=== PATIENT | male | born 1960 | race Caucasian/White ===

== ENCOUNTER 2018-01-31 21:15 | Emergency (ER) | payer OTHER, MEDICAID ==
[~2018-01-31] VITALS: Ht 172.7 cm; Wt 81.6 kg
[~2018-01-31 21:15] MED LIST: ACET-2619 PO; BEN50 PO; BISA10SU1 RC; CLIN300C2 PO; CRAN400C PO; DOCU-299 PO; LORA-476 PO; MAGN400S60 PO; POLY17PD65 PO; QUET100T PO; QUET200T PO; TAMS0.4C96 PO; TYL3 PO; [UNRECOGNIZED DRUG - CODE] OP; [UNRECOGNIZED DRUG - CODE] PO; [UNRECOGNIZED DRUG - CODE] PO
[2018-01-31 21:20] VITALS: BP 130/75
[2018-01-31 23:20] VITALS: BP 120/69
== END 2018-01-31 23:20 | disposition home or self-care (01) ==
LOC: MED 21:15
DX: S00.83XA Contusion of other part of head, initial encounter (principal); I10 Essential (primary) hypertension; Z79.899 Other long term (current) drug therapy; W01.0XXA Fall on same level from slipping, tripping and stumbling without subsequent striking against object, initial encounter; Y93.89 Activity, other specified; Y99.8 Other external cause status; Y92.89 Other specified places as the place of occurrence of the external cause
CPT/HCPCS: 70450; 72125; 99284

== ENCOUNTER 2018-05-19 08:17 | Emergency (ER) | payer OTHER, MEDICAID ==
[~2018-05-19] VITALS: Ht 175.3 cm; Wt 88.0 kg
[2018-05-19 08:33] VITALS: BP 129/96
--- NOTE | 2018-05-19 08:42 | NUR ---
Patient to bed 4 at this time.
--- NOTE | 2018-05-19 08:45 | NUR ---
58Y/M BIB COMMISSARY HELPER FROM A RETIREMENT WITH C/O LACERATION ON TOP OF HIS LAST NIGHT FOUND HITTING HIS HEAD ON THE WALL LAST NIGHT; CAREGIVER DENIES LOC; BLEEDING CONTROLLED; 1 INCH LACERATION; BED DOWN; BEDRAIL UP X 1; ER MD AWARE AND NOTIFIED OF PT STATUS. HX; EPILEPSY, PSYCHOTIC BEHAVIOUR, BOWEL OBSTRUCTION RX; HALDOL, HODROCODONE, DIVALPROEX, BLYCOPYRROLATE
--- NOTE | 2018-05-19 10:00 | NUR ---
Patient being evaluated by physician at bedside.
[2018-05-19] MEDS ORDERED: BACITRACIN OINT 500 UNITS/GM PKT TP ONE (10:18)
[2018-05-19 10:20] VITALS: BP 127/93
--- NOTE | 2018-05-19 10:20 | NUR ---
Patient discharged with v/s stable. Written and verbal after care instructions given and explained. Patient alert, oriented and verbalized understanding of instructions. Wheel Chair Assisted with by caregiver. All questions addressed prior to discharge. ID band removed. Patient advised to follow up with PMD. Rx of bacitracin given. Patient educated on indication of medication including possible reaction and side effects. Opportunity to ask questions provided and answered.
== END 2018-05-19 10:20 | disposition home or self-care (01) ==
LOC: MED 08:17
DX: S01.01XA Laceration without foreign body of scalp, initial encounter (principal); I10 Essential (primary) hypertension; G40.909 Epilepsy, unspecified, not intractable, without status epilepticus; Z79.899 Other long term (current) drug therapy; W22.01XA Walked into wall, initial encounter; Y93.89 Activity, other specified; Y92.89 Other specified places as the place of occurrence of the external cause; Y99.8 Other external cause status
CPT/HCPCS: 99283

== ENCOUNTER 2019-09-05 22:23 | Emergency (ER) | payer OTHER, MEDICAID ==
[~2019-09-05] VITALS: Ht 170.2 cm; Wt 86.2 kg
[~2019-09-05 22:23] MED LIST changes: +ACET-503 PO; -TYL3 PO
--- NOTE | 2019-09-06 00:25 | NUR ---
59 YEAR OLD MALE BROUGHT IN BY DAIRY BAR MANAGER. DAIRY BAR MANAGER STATES THAT PATIENT'S NURSE INSERTED A STRAIGHT CATHETER INTO THE PATIENT BUT THE CLEANING SWAB BROKE OFF AND GOT STUCK INTO THE PATIENT'S PENIS. DAIRY BAR MANAGER DENIES BLEEDING FROM PENIS. PATIENT ALERT AND AWAKE, BREATHING EVEN AND UNLABORED, SKIN WARM AND DRY. BED IN LOWEST POSITION, LOCKED, BED RAIL UPX1. PMH - MODERATE MR, AGGRESSIVE, GLAUCOMA, UTI MEDS - NONE ALLERGIES - NKA
--- NOTE | 2019-09-06 00:32 | NUR ---
PT BROUGHT TO BED 6 VIA WHEELCAHIR WITH CAREGIVER
--- NOTE | 2019-09-06 00:55 | NUR ---
DISCHARGE BY DR GUTIÉRREZ. Patient discharged with v/s stable. Written and verbal after care instructions ABOUT FOREIGN BODY BRIEF given and explained TO CAREGIVER. CAREGIVER verbalized understanding. Ambulatory with steady gait. All questions addressed prior to discharge. Advised to follow up with PMD.
== END 2019-09-06 01:15 | disposition home or self-care (01) ==
LOC: MED 22:23
DX: T19.4XXA Foreign body in penis, initial encounter (principal); I10 Essential (primary) hypertension; Z79.899 Other long term (current) drug therapy; X58.XXXA Exposure to other specified factors, initial encounter; Y93.89 Activity, other specified; Y92.89 Other specified places as the place of occurrence of the external cause; Y99.8 Other external cause status
CPT/HCPCS: 99281

== ENCOUNTER 2021-02-07 08:19 | Emergency (ER) | payer OTHER, MEDICAID ==
[~2021-02-07] VITALS: Ht 180.3 cm; Wt 88.5 kg
--- NOTE | 2021-02-07 08:20 | NUR ---
PATIENT WHEELCHAIR ASSISTED TO ER BED 09
--- NOTE | 2021-02-07 08:25 | NUR ---
60 Y/O MALE BIB CAREGIVER C/O LACERATION TO L SIDE OF HEAD S/P MECHANICAL FALL X20 MINS AGO. PER CAREGIVER, PT FELL FORWARD AND HIT HIS HEAD ON A BED FRAME. DENIES LOC. CONTROLLED BLEEDING WITH GAUZE PLACED BY FACILITY. PT IS VERBAL BUT WITH HX, HARD TO UNDERSTAND. PT DOES NOT APPEAR TO BE IN ANY PAIN WITH NO SIGNS OF DISTRESS. CAREGIVER AT BEDSIDE. PT LAYING IN BED WITH BED IN LOWEST POSITION, BRAKES LOCKED, X2 SIDERAILS UP FOR SAFETY. PMH: MOD ID,HTN, EPILEPSY, GLAUCOMA, HEMOCHROMATOSIS, AGGRESIVE BEHAVIOR NKDA
[2021-02-07 08:26] VITALS: BP 156/64
--- NOTE | 2021-02-07 08:33 | NUR ---
DR PERKINS AT BEDSIDE EVALUATING PT
[2021-02-07] MEDS ORDERED: LIDOCAINE MPF 1% 10 MG/ML VIAL INJ ONE (08:40)
[2021-02-07] MEDS ORDERED: LORazepam 2 MG/ML VIAL IM ONE (08:40)
--- NOTE | 2021-02-07 09:05 | NUR ---
PT TAKEN TO CT VIA MIRANDA. CAREGIVER PRESENT
--- NOTE | 2021-02-07 09:15 | NUR ---
PT BACK FROM CT
--- NOTE | 2021-02-07 09:48 | NUR ---
IRRIGATED PT HEAD WITHOUT ANY ISSUES
[2021-02-07 09:55] VITALS: BP 156/64
--- NOTE | 2021-02-07 09:56 | NUR ---
Patient discharged with v/s stable. Written and verbal after care instructions given and explained. Patient verbalized understanding. Wheel Chair Assisted with by caregiver. All questions addressed prior to discharge. Advised to follow up with PMD.
== END 2021-02-07 09:56 | disposition home or self-care (01) ==
LOC: MED 08:19
DX: S01.01XA Laceration without foreign body of scalp, initial encounter (principal); I10 Essential (primary) hypertension; E07.9 Disorder of thyroid, unspecified; Z79.899 Other long term (current) drug therapy; W19.XXXA Unspecified fall, initial encounter; Y93.89 Activity, other specified; Y92.89 Other specified places as the place of occurrence of the external cause; Y99.8 Other external cause status
CPT/HCPCS: 12002; 70450; 96372; 99284; J2001; J2060

== ENCOUNTER 2021-02-17 09:25 | Emergency (ER) | payer OTHER, MEDICAID ==
[~2021-02-17] VITALS: Ht 180.3 cm; Wt 86.2 kg
[2021-02-17 09:32] VITALS: BP 141/113
[2021-02-17 10:12] VITALS: BP 141/113
== END 2021-02-17 10:12 | disposition home or self-care (01) ==
LOC: MED 09:25
DX: S01.01XD Laceration without foreign body of scalp, subsequent encounter (principal); I10 Essential (primary) hypertension; Z79.899 Other long term (current) drug therapy; X58.XXXD Exposure to other specified factors, subsequent encounter
CPT/HCPCS: 99281

== ENCOUNTER 2021-02-23 10:25 | Emergency (ER) | payer OTHER, MEDICAID ==
[~2021-02-23] VITALS: Ht 180.3 cm; Wt 85.3 kg
[2021-02-23 10:51] VITALS: BP 132/97
--- NOTE | 2021-02-23 11:10 | NUR ---
PT AMBULATED WITH ELECTRONIC INSTALLER ASSIST TO BED 4
--- NOTE | 2021-02-23 11:11 | NUR ---
PT BROUGHT IN BY CONTINUOUS MINING MACHINE COMPANY MINER WITH C/O LEFT 2ND TOE PAIN, PT NAIL IS FALLING OFF. CAREGIVER STATED THE PAIN STARTED TODAY. PT FLACC 10/10. FROWNING AND DIFFICULT TO CONTROL. A MILD SWELLING NOTED TO THE TOE. HX: MODERATE ID, AGGRESSIVE BEHAVIOR, HEMACHROMATOSIS, CHRONIC URINARY TRACT INFECTION, GLAUCOMA, HX BOWEL OBSTRUCTION, CHRONIC CONSTIPATION, HTN, HYPOTHYROID.
--- NOTE | 2021-02-23 11:26 | NUR ---
Dr. Edouard is evaluating the patient at bedside.
[2021-02-23] MEDS ORDERED: KETOROLAC 30 MG/ML VIAL IM ONE (11:30)
--- NOTE | 2021-02-23 11:43 | NUR ---
integrated pest management technician at bedside.
[2021-02-23] MEDS ORDERED: BACITRACIN OINT 500 UNITS/GM PKT TP ONE ×2 (12:08→12:10)
--- NOTE | 2021-02-23 12:18 | NUR ---
APPLIED DRESSING TO LEFT 2ND TOE
[2021-02-23] MEDS ORDERED: LIDOCAINE 2% 1000 MG/50 ML VIAL INJ ONE (12:25)
--- NOTE | 2021-02-23 12:34 | NUR ---
Dr. Edouard is reevaluating the patient at bedside.
[2021-02-23] MEDS ORDERED: BACI1PAC6 TP (12:59)
[2021-02-23] MEDS ORDERED: ACET-10509 PO (12:59)
--- NOTE | 2021-02-23 13:21 | NUR ---
Patient discharged with v/s stable. Written and verbal after care instructions given and explained. CAREGIVER STATED UNDERSTANDING. Wheel Chair Assisted with to car. All questions addressed prior to discharge. ID band removed. Patient advised to follow up with PMD. Rx of TYLENOL EXTRA STRENGHTH, BACITRACIN ZINC given. Patient educated on indication of medication including possible reaction and side effects. Opportunity to ask questions provided and answered.
== END 2021-02-23 13:21 | disposition home or self-care (01) ==
LOC: MED 10:25
DX: S93.105A Unspecified dislocation of left toe(s), initial encounter (principal); S91.205A Unspecified open wound of left lesser toe(s) with damage to nail, initial encounter; I10 Essential (primary) hypertension; E03.9 Hypothyroidism, unspecified; Z98.890 Other specified postprocedural states; Z79.899 Other long term (current) drug therapy; X58.XXXA Exposure to other specified factors, initial encounter; Y93.89 Activity, other specified; Y92.89 Other specified places as the place of occurrence of the external cause; Y99.8 Other external cause status
CPT/HCPCS: 28660; 73660; 96372; 99283; J1885; J2001; 99284

== ENCOUNTER 2021-04-09 07:00 | Emergency (ER) | payer OTHER, MEDICAID ==
[~2021-04-09] VITALS: Ht 182.9 cm; Wt 90.7 kg
[~2021-04-09 07:00] MED LIST changes: +ACET-10509 PO; +BACI1PAC6 TP
--- NOTE | 2021-04-09 07:10 | NUR ---
PT TISH DOLANS. TAKEN TO BED 4
[2021-04-09 07:13] VITALS: BP 135/86
--- NOTE | 2021-04-09 07:30 | NUR ---
TISH FROM ASSISTED FACILITY POST FALL. PATIENT AMBULATORY SLIP AND FALL ON THE FLOOR DENIES LOSING CONSCIOUSNESS. PER FIREGIHTER 4INCH LACERATION ON FOREHEAD, BLEEDING CONTROLLED. LOSS OF 50ML OF BLOOD PER EMS. PATIENT AAOX1 TO NAME; BASELINE. PT ALERT AND AWAKE, BREATHING EVEN AND UNLABORED, SKIN WARM AND DRY.ERMD AWARE OF PT STATUS. ALLERGIES - NKA
--- NOTE | 2021-04-09 07:40 | NUR ---
DR PERKINS MADE AWARE PT FELL AND HAS APPROX 4 INCH LACERATION ON FOREHEAD
[2021-04-09] MEDS ORDERED: LIDOCAINE/EPI 1% 1:100000 20 ML VIAL INJ ONE (08:50)
[2021-04-09 09:45] VITALS: BP 127/81
--- NOTE | 2021-04-09 09:46 | NUR ---
Patient discharged with v/s stable. Written and verbal after care instructions about head injury and facial laceration given and explained to raimann machine operator and to return 5 days for suture removal. Assurance Senior Manager Insurance verbalized understanding. Ambulatory with steady gait. All questions addressed prior to discharge. Advised to follow up with PMD.
== END 2021-04-09 09:46 | disposition home or self-care (01) ==
LOC: MED 07:00
DX: S01.91XA Laceration without foreign body of unspecified part of head, initial encounter (principal); I10 Essential (primary) hypertension; E03.9 Hypothyroidism, unspecified; W19.XXXA Unspecified fall, initial encounter; Y93.89 Activity, other specified; Y92.89 Other specified places as the place of occurrence of the external cause; Y99.8 Other external cause status
CPT/HCPCS: 12013; 70450; 72125; 99285; J2001

== ENCOUNTER 2021-04-14 09:14 | Emergency (ER) | payer OTHER, MEDICAID ==
[~2021-04-14] VITALS: Ht 177.8 cm; Wt 90.7 kg
[2021-04-14 09:17] VITALS: BP 115/90
--- NOTE | 2021-04-14 09:24 | NUR ---
PT W/C ASSISTED TO ER BED 8 WITH CAREGIVER.
--- NOTE | 2021-04-14 09:30 | NUR ---
60 Y/O M BIB CAREGIVER FROM [facility] FOR SUTURE REMOVAL. PT HAD SUTURES PLACED S/P HEAD INJURY X5 DAYS AGO. CLEAN IS CLEAN,DRY, AND INTACT WITH NO ACTIVE BLEEDING NOTED. DENIES PAIN, DENIES N/V, DENIES FEVER/CHILLS. PMH:HEMOCHROMATOSIS, CHRONIC UTI, GLAUCOMA, BOWEL OBSTRUCTION, HTN, HYPOTHYROID, EPILEPSY, PSYCHOTIC BEHAVIOR NKA
--- NOTE | 2021-04-14 09:39 | NUR ---
DR. KELSEY AT PT BEDSIDE FOR FURTHER EVALUATION.
[2021-04-14 09:57] VITALS: BP 112/86
--- NOTE | 2021-04-14 09:58 | NUR ---
Patient discharged with v/s stable. Written and verbal after care instructions given and explained LAC CARE, AFTER. Patient verbalized understanding. Wheel Chair Assisted with to car by caregiver. All questions addressed prior to discharge. Advised to follow up with PMD.
== END 2021-04-14 09:58 | disposition home or self-care (01) ==
LOC: MED 09:14
DX: S01.81XD Laceration without foreign body of other part of head, subsequent encounter (principal); I10 Essential (primary) hypertension; E07.9 Disorder of thyroid, unspecified; Z48.00 Encounter for change or removal of nonsurgical wound dressing; X58.XXXD Exposure to other specified factors, subsequent encounter
CPT/HCPCS: 99281

== ENCOUNTER 2021-08-21 21:40 | Inpatient (IN) | payer OTHER, MEDICAID, SELFPAY ==
[~2021-08-21] VITALS: Ht 177.8 cm; Wt 87.5 kg
[2021-08-21 21:48] VITALS: BP 136/80
--- NOTE | 2021-08-21 21:48 | NUR ---
PT TO A/W IN AMBULANCE FOR BED.
[2021-08-21] MEDS ORDERED: cefTRIAXone 1,000 MG in DEXT 5% MINI-BAG PLUS 50 ML IV ONE (23:05)
--- NOTE | 2021-08-21 23:15 | NUR ---
BIB TAKEN TO CHAIR E
--- NOTE | 2021-08-21 23:40 | NUR ---
61 Y/O M TISH FROM [facility] C/O SOB. RHONCI HEARD THROUGHOUT. O2 SAT AT 85% RA. PT ON 3L VIA NC O2 SAT AT 96%.
--- NOTE | 2021-08-22 | NUR ---
PT IS AWAKE AND ALERT. VSS. PT IN STABLE CONDITION. ALL NEEDS MET AT THIS TIME. BED LOCKED IN LOWEST POSITION,SIDE RAILS X2 FOR SAFETY.
[2021-08-22 00:37] LABS: BASOPHILS # (AUTO) 0.1 K/uL (0.00-0.22); BASOPHILS % (AUTO) 1.2 % (0.0-2.0); EOSINOPHILS % (AUTO) 0.2 % (0.0-4.0); HEMATOCRIT 40.7 % (36-52); HEMOGLOBIN 14.9 g/dL (12.0-18.0); LYMPHOCYTES # (AUTO) 0.7 K/uL (2.0-11.5); LYMPHOCYTES % (AUTO) 15.1 % (20.5-51.1); MEAN CORPUSCULAR HEMOGLOBIN 39 pg (27-31); MEAN CORPUSCULAR HGB CONC 37 g/dL (33-37); MEAN CORPUSCULAR VOLUME 105.6 fL (80-94); MONOCYTES # (AUTO) 0.4 K/uL (0.8-1.0); MONOCYTES % (AUTO) 9.1 % (1.7-9.3); NEUTROPHILS # (AUTO) 3.6 K/uL (1.8-7.7); NEUTROPHILS % (AUTO) 74.4 % (42.2-75.2); PLATELET COUNT (AUTO) 104 K/uL (140-450); RED BLOOD CELL COUNT(AUTO) 3.86 MIL/uL (4.20-6.10); RED CELL DISTRIBUTION WIDTH 13.3 % (11.6-13.7); WHITE BLOOD COUNT (AUTO) 4.9 K/uL (4.8-10.8)
[2021-08-22] MEDS ORDERED: cefTRIAXone 1,000 MG VIAL ONE (01:32)
[2021-08-22 02:07] LABS: APPEARANCE,URINE CLEAR (CLEAR); BILIRUBIN,URINE NEGATIVE (NEGATIVE); BLOOD, URINE NEGATIVE (NEGATIVE); COLOR,URINE YELLOW (YELLOW); LEUKOCYTE ESTERASE ,URINE 1+ (NEGATIVE); NITRITE, URINE NEGATIVE (NEGATIVE); UGLUCOSE NEGATIVE (NEGATIVE)
[2021-08-22] MEDS: DEXT 5% / NACL 0.45% 1,000 ML IV SCH ×3 (02:15→23:00)
[2021-08-22 02:24] LABS: RBC,URINE 0-5 /HPF (0-5)
--- NOTE | 2021-08-22 03:30 | NUR ---
PT'S DIAPER AND SHEETS CHANGED. PT PLACED IN A GOWN.
[2021-08-22 04:43] LABS: ANION GAP 17.6 (8-16); CARBON DIOXIDE 27.1 mmol/L (21-32); POTASSIUM 4.7 mmol/L (3.5-5.1)
[2021-08-22 04:53] LABS: ALBUMIN 3.4 g/dL (3.4-5.0); TOTAL BILIRUBIN 0.7 mg/dL (0.0-1.0)
--- NOTE | 2021-08-22 05:20 | NUR ---
PT IS AWAKE. VSS. PT IS IN STABLE CONDITION. EQUAL RISE AND FALL OF CHEST WALL. BED LOCKED IN LOWEST POSITION. SIDE RAILS X2 FOR SAFETY.
--- NOTE | 2021-08-22 06:13 | NUR ---
PT IS AWAKE. VSS. PT IS IN STABLE CONDITION. EQUAL RISE AND FALL OF CHEST WALL. BED LOCKED IN LOWEST POSITION. SIDE RAILS X2 FOR SAFETY.
--- NOTE | 2021-08-22 07:26 | NUR ---
Pt report given to MARU BROWN. Transfer of care at this time.
--- NOTE | 2021-08-22 07:40 | NUR ---
received pt in [facility] alert to name, follows commands able to make needs known. iv intact and patent infusing fluids per order. breathing unlabored. 2l nc saturation 95%. no acute distress noted. safety maitnained.
[2021-08-22] MEDS ORDERED: ACETAMINOPHEN 325 MG TAB PO SCH (09:10)
[2021-08-22] MEDS ORDERED: ACETAMINOPHEN/CODEINE 300/30MG 1 TAB PO PRN (09:10)
[2021-08-22] MEDS ORDERED: ONDANSETRON 4 MG/2 ML VIAL IVP PRN (09:10)
[2021-08-22] MEDS ORDERED: LORazepam 2 MG/ML VIAL IVP PRN (09:10)
[2021-08-22] MEDS ORDERED: ALBUTEROL 0.083% 2.5 MG/3 ML NEBU INH PRN (09:10)
--- NOTE | 2021-08-22 09:25 | NUR ---
PATIENT HAS BEEN SCREENED AND CATEGORIZED MODERATE NUTRITION RISK. PATIENT WILL BE SEEN WITHIN 3-5 DAYS OF ADMISSION. 08/24/21-08/26/21 REVIEWED BY JOSE SIMMONS RD
--- NOTE | 2021-08-22 09:30 | NUR ---
pt incontinent of urine, cleaned new diaper placed and repositioned for comfort.
--- NOTE | 2021-08-22 12:30 | NUR ---
PT INCONTINENT OF URINE, CLEANED AND REPOSITIONED. BREATHING UNLABORED. NAD. SAFETY MAINTAINED.
[2021-08-22] MEDS ORDERED: HALOPERIDOL 10 MG/5 ML UDC PO SCH (13:00)
[2021-08-22] MEDS: LORazepam 1 MG TAB PO SCH ×2 (13:00→16:47)
[2021-08-22] MEDS ORDERED: QUEtiapine FUMARATE 100 MG TAB ONE (14:00)
[2021-08-22] MEDS: QUEtiapine FUMARATE 100 MG TAB PO SCH ×2 (14:02→22:00)
--- NOTE | 2021-08-22 14:07 | NUR ---
Aquiles reynolds in [facility] - 08/22/21 at [id number] CORDOBA AT [facility].
--- NOTE | 2021-08-22 15:42 | NUR ---
PT ASLEEP NO S/S PAIN OR DISCOMFORT. BREATHING UNLABORED. NAD. SAFETY MAINTAINED.
[2021-08-22] MEDS: HALOPERIDOL 1 MG TAB PO SCH (16:47)
--- NOTE | 2021-08-22 21:48 | NUR ---
PATIENT TRANSFERED TO [facility] [[email or web address] FLOOR ROOM 115, BEDSIDE REPORT GIVEN TO MARU LLOYD. PATIENT IN STABLE CONDITION WITH NO SIGNS OF ACUTE DISTRESS NOTED. VSS. BREATHING AT RA O2 SAT 94%.
[2021-08-22] MEDS: diphenhydrAMINE 50 MG CAP PO SCH (22:00)
[2021-08-22] MEDS: MAGNESIUM HYDROXIDE 2400 MG/30 ML UDC PO SCH (22:00)
[2021-08-22] MEDS: DOCUSATE SODIUM 100 MG GELCAP PO SCH (22:00)
[2021-08-23 04:53] VITALS: BP 115/81
[2021-08-23 07:38] LABS: BASOPHILS % (AUTO) 0.1 % (0.0-2.0); EOSINOPHILS % (AUTO) 0.5 % (0.0-4.0); HEMATOCRIT 43.4 % (36-52); HEMOGLOBIN 15.6 g/dL (12.0-18.0); LYMPHOCYTES # (AUTO) 1.1 K/uL (2.0-11.5); LYMPHOCYTES % (AUTO) 17.5 % (20.5-51.1); MEAN CORPUSCULAR HEMOGLOBIN 38 pg (27-31); MEAN CORPUSCULAR HGB CONC 36 g/dL (33-37); MEAN CORPUSCULAR VOLUME 106.1 fL (80-94); MONOCYTES # (AUTO) 0.4 K/uL (0.8-1.0); NEUTROPHILS # (AUTO) 4.7 K/uL (1.8-7.7); NEUTROPHILS % (AUTO) 74.9 % (42.2-75.2); PLATELET COUNT (AUTO) 94 K/uL (140-450); RED BLOOD CELL COUNT(AUTO) 4.09 MIL/uL (4.20-6.10); WHITE BLOOD COUNT (AUTO) 6.3 K/uL (4.8-10.8)
[2021-08-23 08:00] VITALS: BP 157/94
[2021-08-23 08:10] LABS: ALBUMIN 3.6 g/dL (3.4-5.0); ANION GAP 9.7 (8-16); CARBON DIOXIDE 34.7 mmol/L (21-32); CREATININE 0.8 mg/dL (0.6-1.3); MAGNESIUM 1.6 mg/dL (1.8-2.4); PHOSPHORUS 2.7 mg/dL (2.5-4.9); POTASSIUM 4.4 mmol/L (3.5-5.1); TOTAL BILIRUBIN 0.6 mg/dL (0.0-1.0)
[2021-08-23] MEDS: DEXT 5% / NACL 0.45% 1,000 ML IV SCH ×2 (08:15→18:15)
--- NOTE | 2021-08-23 08:57 | NUR ---
DC PLANNIN YRS OLD MALE PATIENT WAS ADMITTED FROM [facility] WITH A DX OF COVID, PNEUMONIA ,INFLUENZA. PATIENT HAS A HX OF HTN, HYPOTHYROIDISM, AND DEVELOPMENTAL DELAY. CXR SHOWED HAZY BILATERAL PULMONARY INFILTRATES. RAPID COVID TEST AND INFLUENZA A&B POSITIVE. ON ROOM AIR SATING 95%. ADMINISTERED IVF, IV ABX AZITHROMYCIN AND ROCEPHIN AND CONTINUE HOME MEDS. CONSULTED WITH PULMO AND ID. CALLED [facility] SPOKE WITH CATALINO STATED, [facility] WILL TAKE PATIENT WHEN HE IS STABLE. CM TO FOLLOW Addendum: 08/25/21 at 0908 by Kenia Retana RN DC PLANNING: CALLED [facility] [phone] SPOKE WITH CATALINO, STATED, WILL TAKE HIM WITH COVID AND WILL ARRANGE TRANSPORT WELL. BEATRICE UPDATED THE CLINICALS AND KANDACE BETANCOURT AWAITING FOR AM CXRAY RESULT. CM TO FOLLOW Addendum: 08/25/21 at 1200 by Kenia Retana RN DC PLANNING: PER DR MAKI Crowley PT NEEDS IV ABX ROCEPHIN AND AZITHROMYCIN FOR TOTAL OF 10 DAYS . CALLED [facility] [phone] SPOKE WITH CATALINO, ASKED HER [facility] PER CATALINO THEY DON'T GIVE IV AND CAN GO TO [facility]. [facility] [place] [facility] COVID PATIENT, FAXED ALL PAPERWORK. CM TO FOLLOW Addendum: 08/25/21 at 1308 by Kenia Retana RN DC PLANNING: PATIENT IS ACCEPTING AT [facility] CAN GO TO ROOM 36B ARRANGED TRANSPORT WITH [facility]OCOLATE DIPPER TIME 3 PM. NOTIFIED JOSE RAMON MAHONEY. CM TO FOLLOW
[2021-08-23] MEDS ORDERED: DEXAMETHASONE 4 MG/ML VIAL IVP SCH (09:00)
[2021-08-23] MEDS: ENOXAPARIN 40 MG/0.4 ML SYR SUBQ SCH (09:00)
[2021-08-23] MEDS ORDERED: MAG SULF 2000 MG/WATER PREMIX 50 ML IV SCH (10:00)
[2021-08-23] MEDS: TAMSULOSIN 0.4 MG CAP PO SCH (10:19)
[2021-08-23] MEDS: LORazepam 1 MG TAB PO SCH ×3 (10:19→16:08)
[2021-08-23] MEDS: QUEtiapine FUMARATE 100 MG TAB PO SCH ×3 (10:19→21:00)
[2021-08-23] MEDS: DOCUSATE SODIUM 100 MG GELCAP PO SCH ×2 (10:19→21:00)
[2021-08-23] MEDS: diphenhydrAMINE 50 MG CAP PO SCH ×2 (10:19→21:00)
[2021-08-23] MEDS: HALOPERIDOL 1 MG TAB PO SCH ×3 (10:19→16:08)
[2021-08-23] MEDS: POLYETHYLENE GLYCOL 17 GM/PKT PO SCH (10:20)
--- NOTE | 2021-08-23 10:27 | NUR ---
SCHEDULED MEDICATIONS DUE GIVEN. WILL CONTINUE TO MONITOR.
--- NOTE | 2021-08-23 10:45 | NUR ---
PATIENT PULLED OUT IV LINE. HARD STICK, UNABLE TO PLACE NEW IV LINE WITH MULTIPLE RN'S TRYING. PAGED DR. GAMBINO, OK TO PLACE MIDLINE. CALLED [facility] WORKER BLANCA DISLA [phone] FOR CONSENT. PROVIDED HER WITH ALL INFORMATION. PER BLANCA, SHE WILL TELL THEIR MD, CALL DR. GAMBINO AND FAX OVER THEIR OWN CONSENT FORM WHEN COMPLETED. BLANCA TO CALL RN BACK WITH ANY UPDATES. WILL CONTINUE TO MONITOR.
[2021-08-23] MEDS: AZITHROMYCIN 500 MG in DEXTROSE 5% 250 ML IV SCH (13:00)
[2021-08-23] MEDS ORDERED: OSELTAMIVIR PHOSPHATE 75 MG CAP PO SCH (13:00)
--- NOTE | 2021-08-23 13:47 | NUR ---
SCHEDULED ORAL MEDICATIONS GIVEN. WILL CONTINUE TO MONITOR.
--- NOTE | 2021-08-23 15:36 | NUR ---
SCHEDULED MEDICATIONS DUE GIVEN. WILL CONTINUE TO MONITOR.
--- NOTE | 2021-08-23 16:08 | NUR ---
SCHEDULED MEDICATIONS DUE GIVEN. WILL CONTINUE TO MONITOR.
--- NOTE | 2021-08-23 16:43 | NUR ---
ABLE TO INSERT RIGHT HAND #24 IV. STARTED ROCEPHIN IV AT THIS TIME. WILL CONTINUE TO MONITOR.
--- NOTE | 2021-08-23 18:14 | NUR ---
SCHEDULED MEDICATIONS DUE GIVEN. WILL CONTINUE TO MONITOR.
--- NOTE | 2021-08-23 18:17 | NUR ---
SCHEDULED MEDICATIONS DUE GIVEN. WILL CONTINUE TO MONITOR.
--- NOTE | 2021-08-23 19:53 | NUR ---
GAVE REPORT TO TENT FINISHER NURSE FOR CONTINUITY OF CARE. PATIENT IN STABLE CONDITION.
[2021-08-23] MEDS: MAGNESIUM HYDROXIDE 2400 MG/30 ML UDC PO SCH (21:00)
[2021-08-23] MEDS: OSELTAMIVIR PHOSPHATE 75 MG CAP PO SCH (21:00)
[2021-08-23 23:37] VITALS: BP 146/88
--- NOTE | 2021-08-23 23:38 | NUR ---
patient vitals are stable. breathing is even and unlabored . no sob or fever. comfort and safety measures a5re provided. patient report was given to JUAN PABLO Jose for continuity of care
[2021-08-24 04:00] VITALS: BP 137/69
[2021-08-24] MEDS: DEXT 5% / NACL 0.45% 1,000 ML IV SCH ×2 (04:15→14:19)
--- NOTE | 2021-08-24 07:15 | NUR ---
RECEIVED REPORT FROM CONTROL MANAGER NURSE FOR CONTINUITY OF CARE. PT IS IN BED AT THIS TIME RESTING. RESPIRATIONS ARE EVEN AND UNLABORED. NO SIGNS OF DISTRESS NOTED. NO SIGNS OF PAIN OR DISCOMFORT NOTED. CALL LIGHT WITHIN REACH. ALL SAFETY MEASURES IN PLACE. WILL CONTINUE TO MONITOR.
[2021-08-24 07:31] LABS: BASOPHILS % (AUTO) 0.3 % (0.0-2.0); EOSINOPHILS % (AUTO) 0.6 % (0.0-4.0); HEMATOCRIT 41.5 % (36-52); HEMOGLOBIN 14.9 g/dL (12.0-18.0); LYMPHOCYTES # (AUTO) 0.6 K/uL (2.0-11.5); MEAN CORPUSCULAR HEMOGLOBIN 38 pg (27-31); MEAN CORPUSCULAR HGB CONC 36 g/dL (33-37); MEAN CORPUSCULAR VOLUME 106.1 fL (80-94); MONOCYTES # (AUTO) 0.4 K/uL (0.8-1.0); MONOCYTES % (AUTO) 8.9 % (1.7-9.3); NEUTROPHILS # (AUTO) 3.4 K/uL (1.8-7.7); NEUTROPHILS % (AUTO) 76.2 % (42.2-75.2); PLATELET COUNT (AUTO) 87 K/uL (140-450); RED BLOOD CELL COUNT(AUTO) 3.92 MIL/uL (4.20-6.10); RED CELL DISTRIBUTION WIDTH 12.8 % (11.6-13.7); WHITE BLOOD COUNT (AUTO) 4.4 K/uL (4.8-10.8)
[2021-08-24 07:52] LABS: ANION GAP 12.1 (8-16); CARBON DIOXIDE 31.5 mmol/L (21-32); CREATININE 0.9 mg/dL (0.6-1.3); POTASSIUM 4.6 mmol/L (3.5-5.1)
[2021-08-24 08:00] VITALS: BP 156/96
[2021-08-24] MEDS: ENOXAPARIN 40 MG/0.4 ML SYR SUBQ SCH (09:00)
[2021-08-24] MEDS: LORazepam 1 MG TAB PO SCH ×3 (09:21→17:33)
[2021-08-24] MEDS: TAMSULOSIN 0.4 MG CAP PO SCH (09:22)
[2021-08-24] MEDS: DOCUSATE SODIUM 100 MG GELCAP PO SCH ×2 (09:23→21:32)
[2021-08-24] MEDS: QUEtiapine FUMARATE 100 MG TAB PO SCH ×3 (09:23→21:32)
[2021-08-24] MEDS: POLYETHYLENE GLYCOL 17 GM/PKT PO SCH (09:23)
[2021-08-24] MEDS: diphenhydrAMINE 50 MG CAP PO SCH ×2 (09:23→21:32)
[2021-08-24] MEDS: HALOPERIDOL 1 MG TAB PO SCH ×3 (09:23→17:33)
[2021-08-24] MEDS: OSELTAMIVIR PHOSPHATE 75 MG CAP PO SCH ×2 (09:24→21:32)
--- NOTE | 2021-08-24 09:35 | NUR ---
PT YELLING AND SCREAMING AT THIS TIME. PT AT BEDSIDE. PT ATTEMPTED TO HIT STAFF. PT BEGAN TO BITE HIMSELF AND BANG HIS FOOT ON BED RAIL. RE-ORIENTED PT. PT CONTINUES TO SCREAM AND BITE SELF. WILL CONTIUE TO MONITOR.
--- NOTE | 2021-08-24 09:40 | NUR ---
ADMINISTERED SCHEDULED MEDICATIONS. EDUCATED PT ON MEDS ADMINISTERED. NO RESPONSE. MEDICATION LOVENOX NOT ADMINISTERED, DUE TO PARAMETERS. WILL CONTINUE TO MONITOR.
--- NOTE | 2021-08-24 12:15 | NUR ---
PT YELLING AND SCREAMING. PT BANGING FOOT AGAINST BED RAIL. ASSISTED IN CHANGING AND REPOSITIONING PT. PT ATTEMPTED TO HIT STAFF. WILL CONTINUE TO MONITOR.
[2021-08-24] MEDS: AZITHROMYCIN 500 MG in DEXTROSE 5% 250 ML IV SCH (13:53)
--- NOTE | 2021-08-24 13:55 | NUR ---
ADMINISTERED ALL SCHEDULED MEDICATIONS. PT CONTINUES TO THRASH ABOUT. YELLING AND SCREAMING. ATTEMPTING TO HIT STAFF. PT CONTINUES TO BITE HIMSELF. WILL CONTINUE TO MONITOR.
[2021-08-24 16:00] VITALS: BP 152/85
--- NOTE | 2021-08-24 16:50 | NUR ---
ASSISTED WITH CHANGING AND REPOSITIONING PT. PT TOLERATED WELL. WILL CONTINUE TO MONITOR.
--- NOTE | 2021-08-24 19:03 | NUR ---
PT IS IN BED RESTING AT THIS TIME. RESPIRATIONS ARE EVEN AND UNLABORED. NO SIGNS OF DISTRESS NOTED. ALL NEEDS MET THROUGH OUT SHIFT. PT IS STABLE. WILL ENDORSE TO BACK WINDER NURSE.
--- NOTE | 2021-08-24 19:30 | NUR ---
RECEIVED REPORT FROM DAY SHIFT NURSE. PATIENT IS ASLEEP RESPIRATION EVEN UNLABORED ON ROOM AIR. NO DISTRESS NOTED. SKIN IS WARM AND DRY. IV PATENT AND INTACT. PLAN OF CARE DISCUSSED. ALL SAFETY MEASURES IN PLACE. BED IS AT LOW POSITION. CALL LIGHT WITHIN REACH. WILL CONTINUE TO MONITOR
[2021-08-24 20:00] VITALS: BP 127/64
[2021-08-24] MEDS ORDERED: CRUSHER, PILL MC ONE (21:29)
--- NOTE | 2021-08-24 21:45 | NUR ---
ALL SCHEDULED MEDS WERE GIVEN PER ORDER. WILL CONTINUE TO MONITOR.
[2021-08-24] MEDS: MAGNESIUM HYDROXIDE 2400 MG/30 ML UDC PO SCH (22:26)
[2021-08-25] MEDS: DEXT 5% / NACL 0.45% 1,000 ML IV SCH ×2 (00:15→03:53)
--- NOTE | 2021-08-25 02:46 | NUR ---
MADE ROUNDS, PATIENT SLEEPING RESPIRATION EVEN UNLABORED ON ROOM. NO DISTRESS NOTED. WILL CONTINUE TO MONITOR.
[2021-08-25 04:00] VITALS: BP 107/67
--- NOTE | 2021-08-25 07:14 | NUR ---
ENDORSED PATIENT TO DAY SHIFT NURSE FOR CONTINUITY OF CARE
--- NOTE | 2021-08-25 07:15 | NUR ---
RECEIVED REPORT FROM WIRE SPOOLER NURSE FOR CONTINUITY OF CARE. PT IN BED RESTING AT THIS TIME. RESPIRATIONS ARE EVEN AND UNLABORED. NO SIGNS OF DISTRESS NOTED. CALL LIGHT WITHIN REACH. ALL SAFETY MEASURES IN PLACE. WILL CONTINUE TO MONITOR.
[2021-08-25 07:37] LABS: BASOPHILS % (AUTO) 0.2 % (0.0-2.0); EOSINOPHILS % (AUTO) 0.2 % (0.0-4.0); HEMATOCRIT 39.9 % (36-52); HEMOGLOBIN 14.3 g/dL (12.0-18.0); LYMPHOCYTES # (AUTO) 0.8 K/uL (2.0-11.5); LYMPHOCYTES % (AUTO) 21.5 % (20.5-51.1); MEAN CORPUSCULAR HEMOGLOBIN 38 pg (27-31); MEAN CORPUSCULAR HGB CONC 36 g/dL (33-37); MEAN CORPUSCULAR VOLUME 105.9 fL (80-94); MONOCYTES # (AUTO) 0.5 K/uL (0.8-1.0); MONOCYTES % (AUTO) 12.1 % (1.7-9.3); NEUTROPHILS # (AUTO) 2.5 K/uL (1.8-7.7); PLATELET COUNT (AUTO) 92 K/uL (140-450); RED BLOOD CELL COUNT(AUTO) 3.77 MIL/uL (4.20-6.10); RED CELL DISTRIBUTION WIDTH 12.8 % (11.6-13.7); WHITE BLOOD COUNT (AUTO) 3.8 K/uL (4.8-10.8)
[2021-08-25 07:55] LABS: ALBUMIN 3.2 g/dL (3.4-5.0); ANION GAP 10.9 (8-16); CARBON DIOXIDE 28.5 mmol/L (21-32); CREATININE 1.1 mg/dL (0.6-1.3); POTASSIUM 4.4 mmol/L (3.5-5.1); TOTAL BILIRUBIN 0.5 mg/dL (0.0-1.0)
--- NOTE | 2021-08-25 08:00 | NUR ---
Patient's Plan of Care was discussed and reviewed with HORSE STUD MANAGER: JOSE RAMON GALLEGOS
[2021-08-25] MEDS: LORazepam 1 MG TAB PO SCH ×2 (08:56→13:33)
[2021-08-25] MEDS: HALOPERIDOL 1 MG TAB PO SCH ×2 (08:57→13:33)
[2021-08-25] MEDS: TAMSULOSIN 0.4 MG CAP PO SCH (08:57)
[2021-08-25] MEDS: DOCUSATE SODIUM 100 MG GELCAP PO SCH (08:57)
[2021-08-25] MEDS: diphenhydrAMINE 50 MG CAP PO SCH (08:57)
--- NOTE | 2021-08-25 08:57 | NUR ---
ADMINISTERED ALL SCHEDULED MEDICATIONS. PT TOLERATED WELL. PT YELLING AND SCREAMING AT THIS TIME. WILL CONTINUE TO MONITOR.
[2021-08-25] MEDS: POLYETHYLENE GLYCOL 17 GM/PKT PO SCH (08:58)
[2021-08-25] MEDS: QUEtiapine FUMARATE 100 MG TAB PO SCH (08:58)
[2021-08-25] MEDS: ENOXAPARIN 40 MG/0.4 ML SYR SUBQ SCH (08:59)
[2021-08-25] MEDS: OSELTAMIVIR PHOSPHATE 75 MG CAP PO SCH (08:59)
[2021-08-25] MEDS ORDERED: bisacodyL 10 MG SUPP RC SCH (09:00)
--- NOTE | 2021-08-25 09:00 | NUR ---
ANDER IV ABX ADMINISTERED. PT IV PATENT, ALL SAFETY MEASURES IN PLACE.
--- NOTE | 2021-08-25 11:24 | NUR ---
08/25/21 RD INITIAL ASSESSMENT COMPLETED PLEASE REFER TO NUTRITION ASSESSMENT UNDER CARE ACTIVITY FOR ESTIMATED NUTRITIONAL NEEDS. 1. CONTINUE 2GM NA DIET TOLERATED 2. PROVIDE ENSURE BID PER RD PROTOCOL 3. PROVIDE MEAL ASSISTANCE 4. RD TO FOLLOW-UP 3-5 DAYS, MODERATE RISK REVIEWED BY NELIA PLEITEZ RD
--- NOTE | 2021-08-25 11:55 | NUR ---
ASSISTED WITH CHANGING AND REPOSITIONING PT. PT ATTEMPTED TO STRIKE STAFF. RE-ORIENTED PT. WILL CONTINUE TO MONITOR.
[2021-08-25] MEDS: AZITHROMYCIN 500 MG in DEXTROSE 5% 250 ML IV SCH (13:17)
--- NOTE | 2021-08-25 14:20 | NUR ---
DISCHARGE ORDER IN PLACE. WILL BEGIN DISCHARGE PAPERWORK.
[2021-08-25 14:36] VITALS: BP 130/90
--- NOTE | 2021-08-25 15:25 | NUR ---
WENT OVER DISCHARGE PAPERWORK WITH PT. PT UNABLE TO SIGN. CALLED [facility] AND GAVE REPORT TO BRIAN. PER BRIAN, PT NEEDS IV BEFORE TRANSFER TO [facility]. PLACED IV TO R WRIST. IV INTACT AND PATENT. PT PICKED UP BY [facility]. ALL BELONGINGS TAKEN UPON DISCHARGE. WRIST BAND REMOVED.
== END 2021-08-25 15:25 | DRG 871 ==
LOC: MED 21:40 → MMU 08-22 02:14 → MTU 08-22 21:16
PROVIDERS: ADMIT Preventive Medicine Preventive Medicine/Occupational Environmental Medicine; ATTEND Preventive Medicine Preventive Medicine/Occupational Environmental Medicine
DX: A41.9 Sepsis, unspecified organism (principal); J96.00 Acute respiratory failure, unspecified whether with hypoxia or hypercapnia; J12.82 Pneumonia due to coronavirus disease 2019; U07.1 COVID-19; J10.08 Influenza due to other identified influenza virus with other specified pneumonia; N39.0 Urinary tract infection, site not specified; D69.6 Thrombocytopenia, unspecified; B96.20 Unspecified Escherichia coli [E. coli] as the cause of diseases classified elsewhere; E03.9 Hypothyroidism, unspecified; E83.42 Hypomagnesemia; E88.09 Other disorders of plasma-protein metabolism, not elsewhere classified; R74.01 Elevation of levels of liver transaminase levels; F79 Unspecified intellectual disabilities; I10 Essential (primary) hypertension; Z79.01 Long term (current) use of anticoagulants; Z79.899 Other long term (current) drug therapy
CPT/HCPCS: 36415; 71045; 80048; 80053; 81001; 83605; 83735; 83880; 84100; 84484; 85025; 85651; 86140; 87040; 87081; 87086; 87804; 96365; 97110; 97112; 97163-GP; 97530; 99285; J0456; J0696; J1100; J1650; J3475; J7060; Q0092; Q0163

== ENCOUNTER 2021-12-12 10:31 | Inpatient (IN) | payer OTHER, MEDICAID ==
[~2021-12-12] VITALS: Ht 177.8 cm; Wt 88.9 kg
[2021-12-12 10:46] VITALS: BP 111/89
--- NOTE | 2021-12-12 11:14 | NUR ---
61 Y/O MALE BROUGHT IN BY HIS CAREGIVER AND SHE STATES HE HAD REDNESS IN HIS URINE ALONG WITH A FEVER YESTERDAY. CAREGIVER BROUGHT HER IN TODAY WORRIED HE MAY HAVE A URINARY INFECTION, HE HAS HAD A FOLLEY IN PLACE SINCE 09-25-2021 NKA HX- HTN, KIDNEY FAILURE, ANXIETY
[2021-12-12 12:34] LABS: BASOPHILS % (AUTO) 0.5 % (0.0-2.0); EOSINOPHILS % (AUTO) 0.4 % (0.0-4.0); HEMATOCRIT 41.3 % (36-52); HEMOGLOBIN 14.5 g/dL (12.0-18.0); LYMPHOCYTES # (AUTO) 1.1 K/uL (2.0-11.5); MEAN CORPUSCULAR HEMOGLOBIN 35 pg (27-31); MEAN CORPUSCULAR HGB CONC 35 g/dL (33-37); MEAN CORPUSCULAR VOLUME 100.8 fL (80-94); MONOCYTES # (AUTO) 0.8 K/uL (0.8-1.0); MONOCYTES % (AUTO) 10.1 % (1.7-9.3); NEUTROPHILS # (AUTO) 5.9 K/uL (1.8-7.7); PLATELET COUNT (AUTO) 105 K/uL (140-450); RED CELL DISTRIBUTION WIDTH 13.8 % (11.6-13.7); WHITE BLOOD COUNT (AUTO) 7.8 K/uL (4.8-10.8)
--- NOTE | 2021-12-12 12:47 | NUR ---
PT RESTING IN BED, CAREGIVER WITH PT. VSS, WILL CONTINUE TO MONITOR.
[2021-12-12 12:51] LABS: ANION GAP 9.3 (8-16); CARBON DIOXIDE 28.9 mmol/L (21-32); CREATININE 0.8 mg/dL (0.6-1.3); POTASSIUM 4.2 mmol/L (3.5-5.1)
--- NOTE | 2021-12-12 13:16 | NUR ---
URINE SPECIMEN TAKEN TO LAB AND HANDED TO PHLEB. AYDEN
[2021-12-12] MEDS ORDERED: NACL 0.9% 1,000 ML IV ONE (13:20)
[2021-12-12 13:26] LABS: APPEARANCE,URINE SL CLOUDY (CLEAR); BILIRUBIN,URINE NEGATIVE (NEGATIVE); BLOOD, URINE TRACE-I (NEGATIVE); COLOR,URINE YELLOW (YELLOW); LEUKOCYTE ESTERASE ,URINE 2+ (NEGATIVE); NITRITE, URINE POSITIVE (NEGATIVE); UGLUCOSE NEGATIVE (NEGATIVE)
--- NOTE | 2021-12-12 13:33 | NUR ---
luis felipe swabbed at this time
--- NOTE | 2021-12-12 13:33 | NUR ---
COLLECTED INGA STANLEY, WALKED TO LAB.
--- NOTE | 2021-12-12 13:40 | NUR ---
UX ARCHITECT AT PT BEDSIDE FOR BLOOD CULTURES.
[2021-12-12 13:43] LABS: RBC,URINE 0-5 /HPF (0-5); WBC,URINE 0-5 /HPF (0-5)
[2021-12-12 13:46] LABS: CALCIUM OXALATE CRYSTALS,UR None Seen /HPF (None Seen); COARSE GRANULAR CASTS,URINE None Seen /LPF (None Seen); FINE GRANULAR CASTS,URINE None Seen /LPF (None Seen); HYALINE CASTS, URINE None Seen /LPF (None Seen); OTHER CASTS, URINE None Seen /LPF (None Seen); OTHER CRYSTALS,URINE None Seen /HPF (None Seen); RED BLOOD CELL CASTS,URINE None Seen /LPF (None Seen); TRICHOMONAS,URINE None Seen /HPF (None Seen); TRIPLE PHOSPHATE CRYSTAL,UR None Seen /HPF (None Seen); URIC ACID CRYSTALS,URINE None Seen /HPF (None Seen); URINE AMORPHOUS URATE None Seen /HPF (None Seen); WAXY CASTS,URINE None Seen /LPF (None Seen); YEAST,URINE None Seen /HPF (None Seen)
[2021-12-12] MEDS ORDERED: cefTRIAXone 1,000 MG VIAL ONE (14:17)
[2021-12-12] MEDS: DEXT 5% / NACL 0.45% 1,000 ML IV SCH ×2 (15:05→23:30)
[2021-12-12 15:35] VITALS: BP 140/72
--- NOTE | 2021-12-12 15:35 | NUR ---
ADMITTED PT FROM ER, PT HAS DEVELOPMENTAL DELAY, ON ROOM AIR, BEDREST, IV LINE NOTED ON THE RT HAND G. 22 ON SALINE LOCK , NO SIGN OF DISTRESS NOTED AND WILL MONITOR PT.
--- NOTE | 2021-12-12 15:58 | NUR ---
Patient will be admitted to care of [facility]. Admited to TELE. Will go to room 121A. Belongings list completed. Report to ABDIAS MAHONEY BEDSIDE.
--- NOTE | 2021-12-12 16:40 | NUR ---
SKIN ASSESSMENT WAS DONE TO PT NOW AND SKIN IS INTACT.
--- NOTE | 2021-12-12 17:18 | NUR ---
MRSA SWAB DONE TO PT NOW AND SENT TO LAB.
[2021-12-12] MEDS ORDERED: ACETAMINOPHEN 325 MG TAB PO PRN (17:45)
[2021-12-12] MEDS ORDERED: ACETAMINOPHEN EXTRA STRENGTH 500 MG TAB PO PRN (17:45)
[2021-12-12] MEDS ORDERED: ACETAMINOPHEN/CODEINE 300/30MG 1 TAB PO PRN (17:45)
[2021-12-12] MEDS ORDERED: LORazepam 2 MG/ML VIAL IVP PRN (17:45)
[2021-12-12] MEDS ORDERED: ONDANSETRON 4 MG/2 ML VIAL IVP PRN (17:45)
--- NOTE | 2021-12-12 19:25 | NUR ---
GAVE REPORT TO BANK SALES AND SERVICE MANAGER NURSE. PT IS STABLE. DISCUSSED PLAN OF CARE.
--- NOTE | 2021-12-12 19:30 | NUR ---
RECEIVED BEDSIDE REPORT FROM DAY SHIFT RN FOR CONTINUITY OF CARE. PT IS AWAKE IN BED. PT IS NOT IN ANY ACUTE DISTRESS. BREATHING EVEN AND UNLABORED. IVF RUNNING PER MD ORDER. CALL LIGHT WITHIN REACH. ALL SAFETY MEASURES TAKEN. WILL CONTINUE TO MONITOR THE PT.
[2021-12-12 20:00] VITALS: BP 142/76
[2021-12-12] MEDS: DOCUSATE SODIUM 100 MG GELCAP PO SCH (20:18)
--- NOTE | 2021-12-12 20:25 | NUR ---
ALL DUE MEDS GIVEN. NO ADVERSE REACTION NOTED. PT ATE 100% OF DINNER. PT IS NOT IN ANY ACUTE DISTRESS. WILL CONTINUE TO MONITOR THE PT.
[2021-12-12] MEDS ORDERED: QUEtiapine FUMARATE 100 MG TAB PO SCH (21:00)
[2021-12-12] MEDS ORDERED: MAGNESIUM HYDROXIDE 2400 MG/30 ML UDC PO PRN (21:00)
[2021-12-12] MEDS ORDERED: LACTOBACILLUS ACIDOPHILUS PO SCH (21:00)
[2021-12-12] MEDS ORDERED: diphenhydrAMINE 50 MG CAP PO SCH (21:00)
[2021-12-12] MEDS ORDERED: BRIMONIDINE TARTRATE 0.2% OP 5 ML BTL OP SCH (21:00)
[2021-12-12] MEDS ORDERED: BRIMONIDINE TARTRATE 0.2% OP 5 ML BTL LEFT EYE SCH (21:00)
[2021-12-12] MEDS ORDERED: [UNRECOGNIZED DRUG - OTHER] PO SCH (21:00)
[2021-12-12] MEDS ORDERED: TIMOLOL OP 0.5% 5 ML BTL LEFT EYE SCH (21:00)
[2021-12-12] MEDS ORDERED: TIMOLOL OP 0.5% 5 ML BTL OP SCH (21:00)
[2021-12-13] VITALS: BP 120/75
--- NOTE | 2021-12-13 | NUR ---
PT IS SLEEPING IN BED COMFORTABLY. PT IS NOT IN ANY DISTRESS. BREATHING EVEN AND UNLABORED. IVF RUNNING PER MD ORDER. CALL LIGHT WITHIN REACH. ALL SAFETY MEASURES TAKEN. WILL CONTINUE TO MONITOR THE PT.
[2021-12-13 04:00] VITALS: BP 112/63
[2021-12-13] MEDS: DEXT 5% / NACL 0.45% 1,000 ML IV SCH ×2 (04:07→19:32)
[2021-12-13 05:56] LABS: BASOPHILS % (AUTO) 0.5 % (0.0-2.0); EOSINOPHILS # (AUTO) 0.1 K/uL (0-0.4); EOSINOPHILS % (AUTO) 1.2 % (0.0-4.0); HEMATOCRIT 38.2 % (36-52); HEMOGLOBIN 13.4 g/dL (12.0-18.0); LYMPHOCYTES # (AUTO) 1.1 K/uL (2.0-11.5); LYMPHOCYTES % (AUTO) 18.4 % (20.5-51.1); MEAN CORPUSCULAR HEMOGLOBIN 35 pg (27-31); MEAN CORPUSCULAR HGB CONC 35 g/dL (33-37); MEAN CORPUSCULAR VOLUME 100.4 fL (80-94); MONOCYTES # (AUTO) 0.5 K/uL (0.8-1.0); MONOCYTES % (AUTO) 7.9 % (1.7-9.3); NEUTROPHILS # (AUTO) 4.3 K/uL (1.8-7.7); PLATELET COUNT (AUTO) 110 K/uL (140-450); RED BLOOD CELL COUNT(AUTO) 3.81 MIL/uL (4.20-6.10); WHITE BLOOD COUNT (AUTO) 5.9 K/uL (4.8-10.8)
[2021-12-13 06:31] LABS: ALBUMIN 2.6 g/dL (3.4-5.0); ANION GAP 6.2 (8-16); CARBON DIOXIDE 30.8 mmol/L (21-32); CREATININE 0.7 mg/dL (0.6-1.3); MAGNESIUM 1.6 mg/dL (1.8-2.4); PHOSPHORUS 3.2 mg/dL (2.5-4.9); TOTAL BILIRUBIN 0.4 mg/dL (0.0-1.0)
--- NOTE | 2021-12-13 06:50 | NUR ---
TALKED WITH PHARMACY TO CLARIFY PENDING MEDICATION ORDERS. EVERYTHING WAS APPROVED EXCEPT BENADRYL MEDICATION. WILL FOLLOW UP WITH DOCTOR ON THE ISSUE AND CALL PHARMACY BACK.
--- NOTE | 2021-12-13 07:15 | NUR ---
RECEIVED REPORT FROM MANAGER STRATEGIC DEVELOPMENT NURSE. PT IS AWAKE, AND WITH DEVELOPMENTAL DELAY. ON ROOM AIR, AND NOT IN DISTRESS AT THIS TIME. PT HAS LONG CATHETER. IV SITE ON RIGHT HAND, 22G. DISCUSSED PLAN OF CARE.
--- NOTE | 2021-12-13 07:29 | NUR ---
ENDORSED PT TO DAY SHIFT RN FOR CONTINUITY OF CARE. PT IS STABLE.
[2021-12-13 08:00] VITALS: BP 115/55
--- NOTE | 2021-12-13 08:27 | NUR ---
PATIENT HAS BEEN SCREENED AND CATEGORIZED LOW NUTRITION RISK. PATIENT WILL BE SEEN WITHIN 7 DAYS OF ADMISSION. 12/19/[address]
[2021-12-13] MEDS: LORazepam 1 MG TAB PO SCH ×6 (09:00→17:30)
[2021-12-13] MEDS ORDERED: LACTOBACILLUS RHAMNOSUS GG 1 EACH CAP PO SCH (09:00)
[2021-12-13] MEDS ORDERED: QUEtiapine FUMARATE 100 MG TAB PO SCH (09:00)
[2021-12-13] MEDS ORDERED: HALOPERIDOL 1 MG TAB PO SCH (09:00)
[2021-12-13] MEDS: TAMSULOSIN 0.4 MG CAP PO SCH ×2 (09:43→11:09)
[2021-12-13] MEDS: DOCUSATE SODIUM 100 MG GELCAP PO SCH ×2 (09:43→21:09)
[2021-12-13] MEDS: POLYETHYLENE GLYCOL 17 GM/PKT PO SCH (09:44)
--- NOTE | 2021-12-13 10:00 | NUR ---
SCHEDULED ATIVAN WAS WASTED AND NOT GIVEN DUE TO CONTAMINATION OF OTHER DISCONTINUED MEDICATIONS. SPOKE TO PHARMACY AND RELAYED THAT ATIVAN WAS WASTED. ONE TIME DOSE WAS ORDERED PER PHARMACY TO REPLACE WASTED DOSE. MD WAS NOTIFIED OF UPDATED MEDICATION LIST AND WILL RECONCILE NEW MEDICATIONS, PREVIOUSLY DISCONTINUED MEDICATIONS WERE ALSO DISCONTINUED DURING MED REC
--- NOTE | 2021-12-13 10:24 | NUR ---
DC PLANNING: THE PATIENT PRESENTED TO ER FROM [facility] WITH C/O BLOODY URINE. THE PATIENT HAS A H/O OF PROFOUND DEVELOPMENTAL DELAY AND PSYCHOSIS PER HIS CAREGIVER ANGUS DANIELS. ALSO H/O HTN, HEMOCHROMATOSIS, HYPOTHYROIDISM AND UTI'S. PATIENT HAS CHRONIC FC AT FACILITY, ANGUS ASKS THAT IT NOT BE DC'D BUT OK TO CHANGE NEEDED. PATIENT SEEN BY UROLOGY, PLAN TO FLUSH FC PRN, CONTINUE FLOMAX, EMPIRIC ABX AND URINE CULTURES. PER ANGUS THE PATIENT IS TOTAL CARE AT THE FACILITY AND IS MINIMALLY VERBAL. HAS BEEN IN DECLINE SINCE HAVING COVID AND IS NO LONGER ABLE TO AMBULATE AND IS PRIMARILY WC BOUND. PATIENT TO RETURN TO THE [facility] WHEN CLINICALLY STABLE LONG HE IS NOT ON IV ABX WHICH WOULD REQUIRE SNF PLACEMENT. FACILITY WILL PROVIDE TRANSPORT. CM WILL FOLLOW. Addendum: 12/13/21 at 1028 by Maria Alejandra Ward CM Amended: Links added. Addendum: 12/13/21 at 1048 by Maria Alejandra Ward CM DC PLANNING: PATIENT IS [facility] CONNECTED, HIS WORKER IS DUANE MINA ([phone]), CM LEFT NOTIFYING HER OF THE PATIENTS ADMISSION. CM WILL FOLLOW. Addendum: 12/15/21 at 1117 by Maria Alejandra Ward CM DC PLANNING: BEATRICE SPOKE WITH DR GAMBINO REGARDING THE PRELIMINARY URINE CULTURE RESULT OF GM - RODS, ENDORSED THAT PATIENT IS FROM A [facility] AND THAT CM WILL NEED TO START PROCESS FOR SNF PLACEMENT IF THE PATIENT NEEDS IV ABX. CM ALSO LEFT A MESSAGE FOR HIS [facility] WORKER BLANCA MINA ASKING FOR INPUT ON SNF'S SHE WILL AUTHORIZE AND ASKING HER TO REVIEW THE IMPORTANT MESSAGE FROM MEDICARE TELEPHONICALLY. CM WILL FOLLOW. Addendum: 12/18/21 at 1055 by Maria Alejandra Ward CM DC PLANNING: CM SPOKE WITH BLANCA FROM THE [facility] SEVERAL TIMES TODAY, PATIENTS MIDLINE PLACEMENT IS STILL PENDING FINAL AUTH FROM THE [facility]. ORDERS RECEIVED TO SEND PATIENT TO [facility] FOR IV ABX, FINAL ORDERS FOR ABX NOT YET ENTERED, CM ENDORSED TO THE CHARGE NURSE THAT ORDERS WILL BE NEEDED FROM DR GAMBINO. CM REFERRED THE PATIENT TO [facility] PER BLANCA'S INSTRUCTIONS, CM WILL WAIT FOR ACCEPTANCE, MIDLINE PLACEMENT AND FINAL DC ORDERS FROM DR. GAMBINO. CM WILL FOLLOW. Addendum: 12/18/21 at 1300 by Maria Alejandra Ward CM DC PLANNING: PATIENT ACCEPTED TO ROOM 19A AT [facility], DR Earl OBRIEN TO FOLLOW. PATIENT TO CONTINUE MEREM IV 1 GM Q 8 X 7 DAYS. WAITING FOR MIDLINE PLACEMENT, CHARGE NURSE CHAD FOLLOWING UP. ABOVE ENDORSED TO SP AT THE [facility], SHE WILL SET UP TRANSPORT ONCE CM CAN CONFIRM MIDLINE PLACEMENT TIME. NUMBER TO CALL REPORT IS [phone]. CM WILL FOLLOW. Addendum: 12/18/21 at 1613 by Maria Alejandra Ward CM DC PLANNING: BEATRICE SPOKE WITH BLANCA AT THE [facility] WHO STATES A NURSE IS STILL WORKING ON THE FORM BUT THE NURSE HAD 10 REQUESTS AND IS CURRENTLY IN A CLINICAL MEETING AND IS UNSURE WHEN THE REQUEST FOR MIDLINE PLACEMENT WILL BE REVIEWED. TRANSPORT WAS ARRANGED WITH [facility] FOR [facility], BEATRICE SPOKE WITH SP AT [facility] TO LET HER KNOW TO CANCEL AUTH HAS NOT BEEN GIVEN FOR MIDLINE. ALSO SPOKE WITH CHAD, CHARGE NURSE, HE HAD NO RESPONSE FROM THE NURSE WHO PLACES THE MIDLINE IN TERMS OF TIME FRAME FOR TODAY, ENDORSED THAT DC PLANNING WILL BE RESUMED TOMORROW. BEATRICE WILL FOLLOW. Addendum: 12/19/21 at 0835 by Maria Alejandra Ward CM DC PLANNING: BEATRICE SPOKE WITH [facility] LEAF FAT SCRAPER BLANCA TO DISCUSS MIDLINE PLACEMENT AND DC TO SNF. BLANCA STATES SHE'S TRYING TO REACH DR GAMBINO TO GET SOME INFORMATION AND HAS BEEN CALLING HIS OFFICE. PHONE FOR DR GAMBINO GIVEN TO HER SO HER NURSE CAN F/U AND GIVE AUTH FOR LINE PLACEMENT FOR CONTINUED IV ABX. BEATRICE WILL FOLLOW. Addendum: 12/19/21 at 1414 by Maria Alejandra Wrad CM DC PLANNING: AUTH RECEIVED FROM [facility] FOR MIDLINE PLACEMENT, COMPANY UNABLE TO SEND SOMEONE UNTIL 1930. PATIENT WILL DC WITH PERIPHERAL IV WHICH WAS RESTARTED TODAY. HE WILL BE PICKED UP AT 1630 BY [facility]. IMPORTANT MESSAGE FROM [employer] NOT SIGNED, BLANCA AT [facility] STATES SHE FORWARDED IT TO THE [employer] PASSENGER SERVICE MANAGER HE IS NOT CONSERVED TO [facility]. CM WILL FOLLOW.
[2021-12-13] MEDS ORDERED: METH1TAB5 PO (10:31)
[2021-12-13] MEDS ORDERED: CARB15DR61 OT (10:31)
[2021-12-13] MEDS ORDERED: MULT-2247 PO (10:31)
[2021-12-13] MEDS ORDERED: OMEP-303 PO (10:31)
[2021-12-13] MEDS ORDERED: BRIM5SOL2 OP (10:31)
[2021-12-13] MEDS ORDERED: DIVA500E2 PO (10:31)
[2021-12-13] MEDS ORDERED: PEG15DRO10 OP (10:31)
[2021-12-13] MEDS ORDERED: LEVO0.124 PO (10:31)
[2021-12-13] MEDS ORDERED: MAG SULF 2000 MG/WATER PREMIX 50 ML IV SCH (11:01)
[2021-12-13 12:00] VITALS: BP 116/58
--- NOTE | 2021-12-13 13:00 | NUR ---
PT LYING ON HIS BED. HELPED DATA ENTRY PROCESSOR CHANGE SOILED UNDERPADS, SPONGE BATH GIVEN. LORAZEPAM GIVEN PER DR'S ORDER..
[2021-12-13 16:00] VITALS: BP 141/95
--- NOTE | 2021-12-13 19:32 | NUR ---
ENDORSED PT TO BUS INSPECTOR NURSE
--- NOTE | 2021-12-13 19:33 | NUR ---
RECD. SLEEPING COMFORTABLY IN BED, BUT EASILY AROUSABLE. IV OF D 5 0.45 NS INFUSING AT 100 ML/HR, RIGHT HAND G20. F/C PATENT DRAINING CLEAR YELLOW URINE. BEDBOUND, ON AIR MATTRESS. NO APPEARANCE OF PAIN NOTED, FLACC -0.
[2021-12-13 20:00] VITALS: BP 125/83
--- NOTE | 2021-12-13 21:09 | NUR ---
SCHEDULED MEDICATION FOR THE NIGHT ADMINISTERED. TOLERATED WELL.
[2021-12-14] VITALS: BP 99/67
--- NOTE | 2021-12-14 | NUR ---
SLEEPING COMFORTABLY IN BED. RESPIRATION EVEN AND UNLABORED.
--- NOTE | 2021-12-14 03:00 | NUR ---
HAD MEDIUM LOOSE BM, CLEANSED AND REPOSITIONED IN BED WITH PILLOWS.
[2021-12-14 04:00] VITALS: BP 119/67
--- NOTE | 2021-12-14 05:30 | NUR ---
RESTING IN BED, AWAKE. OCCASIONALLY MAKES LOUD MUMBLING. SAFETY MAINTAINED.
[2021-12-14] MEDS: DEXT 5% / NACL 0.45% 1,000 ML IV SCH ×2 (06:03→16:23)
--- NOTE | 2021-12-14 07:20 | NUR ---
ENDORSED TO AM SHIFT NURSE FOR CONTINUITY OF CARE.
--- NOTE | 2021-12-14 07:30 | NUR ---
RECEIVED REPORT FROM COMPUTER FORENSICS EXAMINER NURSE. NO S/S OF DISTRESS. CALL LIGHT IN REACH. ALL SAFETY MEASURES IN PLACE
[2021-12-14 08:00] VITALS: BP 134/72
[2021-12-14] MEDS: DOCUSATE SODIUM 100 MG GELCAP PO SCH ×2 (09:05→21:50)
[2021-12-14] MEDS: LORazepam 1 MG TAB PO SCH ×3 (09:06→16:23)
[2021-12-14] MEDS: POLYETHYLENE GLYCOL 17 GM/PKT PO SCH (09:08)
[2021-12-14] MEDS: TAMSULOSIN 0.4 MG CAP PO SCH ×2 (09:15→09:16)
--- NOTE | 2021-12-14 10:24 | NUR ---
OFFERED AND PROVIDED PT WITH WATER. PT TOLERATED WELL. NO S/S OF DISTRESS. NO SIGNS OF ASPIRATION. ALL SAFETY MEASURES IN PLACE
[2021-12-14 12:00] VITALS: BP 118/93
--- NOTE | 2021-12-14 14:48 | NUR ---
PT CLEANED AND CHANGED. NEW LONG SECUREMENT DEVICE APPLIED. PT TOLERATED WELL. ALL SAFETY MEASURES IN PLACE
[2021-12-14 16:00] VITALS: BP 133/97
--- NOTE | 2021-12-14 18:42 | NUR ---
PT RESTING IN BED. NO S/S OF DISTRESS. CALL LIGHT IN REACH. ALL SAFETY MEASURES IN PLACE. BREATHING SYMMETRICAL
--- NOTE | 2021-12-14 19:26 | NUR ---
ENDORSED PT TO DIRECTOR OF SCIENTIFIC RESEARCH NURSE. PT STABLE
--- NOTE | 2021-12-14 19:27 | NUR ---
RECEIVED BEDSIDE REPORT FROM DAY SHIFT NURSE FOR CONTINUITY OF PATIENT'S CARE.
[2021-12-14 20:00] VITALS: BP 151/89
--- NOTE | 2021-12-14 21:45 | NUR ---
PT ON STABLE CONDITION. NO SOB OR DISTRESS. PT IS ASLEEP. IV INTACT AND PATENT. SAFETY MEASURES IN PLACE. CALL LIGHT WITHIN REACH.
[2021-12-15] VITALS: BP 129/66
[2021-12-15] MEDS: DEXT 5% / NACL 0.45% 1,000 ML IV SCH ×3 (01:30→22:17)
--- NOTE | 2021-12-15 01:30 | NUR ---
PATIENT IS ASLEEP. NO S/S OF INFECTION OR OTHER ABNORMALITY. NO SOB OR DISTRESS. SAFETY MEASURES ACTIVATED.
--- NOTE | 2021-12-15 03:30 | NUR ---
PATIENT IS ASLEEP. NO SOB OR DISTRESS.
[2021-12-15 04:00] VITALS: BP 138/76
[2021-12-15 05:36] LABS: BASOPHILS % (AUTO) 0.2 % (0.0-2.0); EOSINOPHILS # (AUTO) 0.1 K/uL (0-0.4); EOSINOPHILS % (AUTO) 2.2 % (0.0-4.0); HEMOGLOBIN 13.6 g/dL (12.0-18.0); LYMPHOCYTES # (AUTO) 1.1 K/uL (2.0-11.5); LYMPHOCYTES % (AUTO) 23.4 % (20.5-51.1); MEAN CORPUSCULAR HEMOGLOBIN 35 pg (27-31); MEAN CORPUSCULAR HGB CONC 35 g/dL (33-37); MEAN CORPUSCULAR VOLUME 99.9 fL (80-94); MONOCYTES # (AUTO) 0.4 K/uL (0.8-1.0); MONOCYTES % (AUTO) 8.9 % (1.7-9.3); NEUTROPHILS # (AUTO) 2.9 K/uL (1.8-7.7); NEUTROPHILS % (AUTO) 65.3 % (42.2-75.2); PLATELET COUNT (AUTO) 111 K/uL (140-450); RED BLOOD CELL COUNT(AUTO) 3.91 MIL/uL (4.20-6.10); RED CELL DISTRIBUTION WIDTH 13.8 % (11.6-13.7); WHITE BLOOD COUNT (AUTO) 4.5 K/uL (4.8-10.8)
[2021-12-15 05:58] LABS: ALBUMIN 2.7 g/dL (3.4-5.0); ANION GAP 12.3 (8-16); CARBON DIOXIDE 27.8 mmol/L (21-32); CREATININE 0.8 mg/dL (0.6-1.3); MAGNESIUM 1.5 mg/dL (1.8-2.4); PHOSPHORUS 4.2 mg/dL (2.5-4.9); POTASSIUM 4.1 mmol/L (3.5-5.1); TOTAL BILIRUBIN 0.5 mg/dL (0.0-1.0)
--- NOTE | 2021-12-15 07:17 | NUR ---
ENDORSE PATIENT TO DAY SHIFT NURSE, KIKE, FOR CONTINUITY OF CARE.
[2021-12-15 08:00] VITALS: BP 148/91
[2021-12-15] MEDS: bisacodyL 10 MG SUPP RC SCH (08:41)
[2021-12-15] MEDS: LORazepam 1 MG TAB PO SCH ×3 (09:45→16:57)
[2021-12-15] MEDS: POLYETHYLENE GLYCOL 17 GM/PKT PO SCH (09:45)
[2021-12-15] MEDS: TAMSULOSIN 0.4 MG CAP PO SCH (09:45)
[2021-12-15] MEDS: DOCUSATE SODIUM 100 MG GELCAP PO SCH ×2 (09:45→21:00)
[2021-12-15 12:05] VITALS: BP 148/91
[2021-12-15] MEDS ORDERED: MAG SULF 2000 MG/WATER PREMIX 50 ML IV SCH (13:00)
[2021-12-15 16:25] VITALS: BP 138/95
--- NOTE | 2021-12-15 19:25 | NUR ---
RECEIVES BEDSIDE ENDORSEMENT FROM DAY SHIFT NURSEKIKE FOR CONTINUITY PATIENT CARE.
--- NOTE | 2021-12-15 19:45 | NUR ---
PATIENT'S URINE LAB RESULT IS WITH ESBL URINE, CURRENTLY PT IS WITH MEREM 1,000MG Q8HR. CONTACTED STEFF LARA MD STATED MEREM IS OK. -MNUREE
[2021-12-15 20:00] VITALS: BP 111/84
[2021-12-15] MEDS: MEROPENEM 1,000 MG in NACL 0.9% 50 ML IV SCH (21:00)
[2021-12-16] VITALS: BP 111/84
[2021-12-16 04:00] VITALS: BP 148/83
[2021-12-16] MEDS: MEROPENEM 1,000 MG in NACL 0.9% 50 ML IV SCH ×3 (04:49→21:32)
--- NOTE | 2021-12-16 07:15 | NUR ---
RECEIVED REPORT FROM CONTRACTOR FIELD HAULING NURSE FOR CONTINUITY OF CARE. PT IN BED AWAKE, NON VERBAL WITH DEVELOPMENTAL DELAY. BREATHING SYMMETRICAL ON ROOM AIR. NOTED WITH LONG CATHETER DRAINING YELLOW URINE. RIGHT HAND 20G WITH D51/2NS AT 100CC/HR. CALL LIGHT WITHIN REACH. ALL SAFETY MEASURES IN PLACE.
--- NOTE | 2021-12-16 07:15 | NUR ---
PT IS AWAKE AND STABLE. ENDORSED TO DAY SHIFT NURSE FOR CONTINUITY OF CARE. - MNUREE
[2021-12-16] MEDS: DEXT 5% / NACL 0.45% 1,000 ML IV SCH (07:30)
[2021-12-16 08:00] VITALS: BP 151/75
[2021-12-16] MEDS: TAMSULOSIN 0.4 MG CAP PO SCH (08:48)
[2021-12-16] MEDS: POLYETHYLENE GLYCOL 17 GM/PKT PO SCH (08:49)
[2021-12-16] MEDS: DOCUSATE SODIUM 100 MG GELCAP PO SCH ×2 (08:49→21:33)
[2021-12-16] MEDS: LORazepam 1 MG TAB PO SCH ×3 (08:49→17:06)
--- NOTE | 2021-12-16 09:03 | NUR ---
SCHEDULED AM MEDICATIONS GIVEN ORDERED.
[2021-12-16 09:14] LABS: BASOPHILS % (AUTO) 0.4 % (0.0-2.0); EOSINOPHILS # (AUTO) 0.1 K/uL (0-0.4); EOSINOPHILS % (AUTO) 1.7 % (0.0-4.0); HEMATOCRIT 38.8 % (36-52); HEMOGLOBIN 13.8 g/dL (12.0-18.0); LYMPHOCYTES # (AUTO) 1.1 K/uL (2.0-11.5); MEAN CORPUSCULAR HEMOGLOBIN 35 pg (27-31); MEAN CORPUSCULAR HGB CONC 36 g/dL (33-37); MEAN CORPUSCULAR VOLUME 99.1 fL (80-94); MONOCYTES # (AUTO) 0.5 K/uL (0.8-1.0); MONOCYTES % (AUTO) 8.5 % (1.7-9.3); NEUTROPHILS # (AUTO) 4.2 K/uL (1.8-7.7); NEUTROPHILS % (AUTO) 71.4 % (42.2-75.2); PLATELET COUNT (AUTO) 121 K/uL (140-450); RED BLOOD CELL COUNT(AUTO) 3.91 MIL/uL (4.20-6.10); RED CELL DISTRIBUTION WIDTH 13.6 % (11.6-13.7); WHITE BLOOD COUNT (AUTO) 5.9 K/uL (4.8-10.8)
[2021-12-16 09:55] LABS: ANION GAP 9.4 (8-16); CARBON DIOXIDE 30.5 mmol/L (21-32); CREATININE 0.7 mg/dL (0.6-1.3); POTASSIUM 3.9 mmol/L (3.5-5.1)
[2021-12-16 09:59] LABS: MAGNESIUM 1.6 mg/dL (1.8-2.4); PHOSPHORUS 3.2 mg/dL (2.5-4.9)
--- NOTE | 2021-12-16 12:44 | NUR ---
SCHEDULED AFTERNOON MEDICATION GIVEN ORDERED. FLACC O. FREQUENT ROUNDS DONE.
--- NOTE | 2021-12-16 13:15 | NUR ---
OBTAINED ORDER FOR MAGNESIUM FROM DR GAMBINO FOR MAGNESIUM LEVEL 1.6
[2021-12-16] MEDS ORDERED: MAG SULF 2000 MG/WATER PREMIX 50 ML IV SCH (14:30)
[2021-12-16 16:00] VITALS: BP 103/78
--- NOTE | 2021-12-16 17:15 | NUR ---
PT AWAKE IN BED, BREATHING SYMMETRICAL ON ROOM AIR, SCHEDULED PM MEDICATION GIVEN ORDERED. FLACC O. PT ABLE TO VERBALIZE SIMPLE WORDS AT A TIME SUCH OKAY, HI AND FINE REPITITIVELY. LONG CATHETER INTACT AND PATENT, NO HEMATURIA NOTED AT THIS TIME. ORAL FLUIDS GIVEN AND OFFERED. ALL SAFETY MEASURES IN PLACE.
--- NOTE | 2021-12-16 19:15 | NUR ---
ENDORSED PT TO BEEF CATTLE FARM MANAGER NURSE, IN STABLE CONDITION
--- NOTE | 2021-12-16 19:16 | NUR ---
RECEIVED REPORT FROM AM NURSE FOR CONTINUITY OF CARE. PT IS RESTING RR EVEN AND UNLABORED.NO S/S OF DISTRESS AT THIS TIME. PT IS BED BOUND. IV SITE R HAND 22G INFUSING IV ABX. SKIN IS INTACT. LONG CATHETER IN PLACE DRAINING CLEAR YELLOW KACEY URINE. PLAN OF CARE DISCUSSED. WILL CONTINUE TO MONITOR.
--- NOTE | 2021-12-16 21:30 | NUR ---
HS MEDS GIVEN CRUSHED IN PUDDING ALONG WITH IV ABX. AWAKE, SAYS OKAY REPETATIVELY. RR EVEN AND UNLABORED. NAD NOTICED. WILL CONTINUE TO MONITOR.
[2021-12-17] VITALS: BP 133/89
[2021-12-17] MEDS: MEROPENEM 1,000 MG in NACL 0.9% 50 ML IV SCH ×3 (04:03→20:32)
--- NOTE | 2021-12-17 05:00 | NUR ---
PT RESTING IN BED. IV ABX HUNG. PT SAYS OKAY REPEATEDLY. AT O550 RESPIRATORY CARE FACULTY IN TO DRAW LABS. RN AT BEDSIDE TO CALM PT DOWN AND PROVIDE POSITIVE REINFORCEMENT. WILL ENDORSE TO DAY SHIFT RN THAT THE PT'S CONSERVATOR WILL NEED TO BE CONTACTED Saturday12/19/2021 DURING OFFICE HRS TO GIVE CONSENT FOR PICC LINE INSERTION THERE IS NO FAMILY.
[2021-12-17 07:11] LABS: BASOPHILS % (AUTO) 0.5 % (0.0-2.0); EOSINOPHILS # (AUTO) 0.1 K/uL (0-0.4); EOSINOPHILS % (AUTO) 0.9 % (0.0-4.0); HEMATOCRIT 39.2 % (36-52); LYMPHOCYTES # (AUTO) 1.5 K/uL (2.0-11.5); LYMPHOCYTES % (AUTO) 17.9 % (20.5-51.1); MEAN CORPUSCULAR HEMOGLOBIN 35 pg (27-31); MEAN CORPUSCULAR HGB CONC 36 g/dL (33-37); MEAN CORPUSCULAR VOLUME 98.5 fL (80-94); MONOCYTES # (AUTO) 0.7 K/uL (0.8-1.0); NEUTROPHILS # (AUTO) 5.9 K/uL (1.8-7.7); NEUTROPHILS % (AUTO) 71.7 % (42.2-75.2); PLATELET COUNT (AUTO) 143 K/uL (140-450); RED BLOOD CELL COUNT(AUTO) 3.98 MIL/uL (4.20-6.10); RED CELL DISTRIBUTION WIDTH 13.9 % (11.6-13.7); WHITE BLOOD COUNT (AUTO) 8.3 K/uL (4.8-10.8)
--- NOTE | 2021-12-17 07:13 | NUR ---
ENDORSED REPORT TO AM MARU RAO FOR CONTINUITY OF CARE. PT IS STABLE.
--- NOTE | 2021-12-17 07:15 | NUR ---
RECEIVED REPORT FROM UNITIZER NURSE FOR CONTINUITY OF CARE. PT AWAKE IN BED, PT WITH DEVELOPMENTAL DELAY UNABLE TO CONVERSE BUT ABLE TO SAY SIMPLE ONE WORDS REPITITIVELY. BREATHING SYMMETRICAL ON ROOM AIR. FLACC O. LONG CATHETER INTACT AND PATENT DRAINING YELLOW URINE, NO HEMATURIA NOTED AT THIS TIME. RIGHT HAND 22G. ALL SAFETY MEASURES IN PLACE.
[2021-12-17 07:25] LABS: MAGNESIUM 1.8 mg/dL (1.8-2.4); PHOSPHORUS 3.2 mg/dL (2.5-4.9)
[2021-12-17 07:35] LABS: ANION GAP 11.8 (8-16); CARBON DIOXIDE 27.8 mmol/L (21-32); CREATININE 0.8 mg/dL (0.6-1.3); POTASSIUM 4.6 mmol/L (3.5-5.1)
[2021-12-17 08:00] VITALS: BP 148/85
[2021-12-17] MEDS: DOCUSATE SODIUM 100 MG GELCAP PO SCH ×2 (08:32→20:31)
[2021-12-17] MEDS: POLYETHYLENE GLYCOL 17 GM/PKT PO SCH (08:32)
[2021-12-17] MEDS: TAMSULOSIN 0.4 MG CAP PO SCH (08:32)
[2021-12-17] MEDS: LORazepam 1 MG TAB PO SCH ×3 (08:32→16:36)
--- NOTE | 2021-12-17 08:41 | NUR ---
SCHEDULED AM MEDICATIONS GIVEN ORDERED. OFFERED FLUIDS.
--- NOTE | 2021-12-17 09:35 | NUR ---
ASSISTED PT WITH BREAKFAST, TOLERATED MEAL WELL. ATE 100% OF BREAKFAST. HOB KEPT ELEVATED. FLACC O.
--- NOTE | 2021-12-17 12:30 | NUR ---
SCHEDULED MEDICATIONS GIVEN ORDERED. ALSO LEFT MESSAGE TO DR GAMBINO REGARDING CONSERVATOR'S REQUEST FOR NOTES FOR PICC LINE INSERTION AND LONG CATHETER.
--- NOTE | 2021-12-17 14:40 | NUR ---
PT HAS ORDER FOR PICC LINE INSERTION AND IS CONSERVED. TRIED TO REACH CONSERVATOR, ASKED FOR DOCUMENTS ON REASON FOR NEED OF PICC LINE AND LONG CATHETER. TRIED TO FAX DOCUMENTS ASKED BY BLANCA (CONSERVATOR) TO FAX NUMBER PROVIDED [phone], DOCUMENTS NOT TRANSMITTED DUE TO NUMBER IS BUSY. WILL TRY AGAIN.
[2021-12-17 16:00] VITALS: BP 141/57
--- NOTE | 2021-12-17 16:10 | NUR ---
TRIED TO RE-FAX AGAIN DOCUMENTS TO CONSERVATOR, STILL NUMBER IS BUSY. CALLED BLANCA [phone] AND MADE AWARE THAT FAX IS NOT GOING THROUGH AND GAVE FAX NUMBER [phone]. FAXED DOCUMENTS TO NUMBER PROVIDED AND WENT THROUGH.
--- NOTE | 2021-12-17 17:30 | NUR ---
PT AWAKE IN BED. BREATHING SYMMETRICAL ON ROOM AIR. FLACC O. CONTACT PRECAUTIONS OBSERVED FOR ESBL URINE. LONG CATHETER INTACT AND PATENT DRAINING YELLOW URINE, NO HEMATURIA OR SEDIMENTS NOTED AT THIS TIME. FREQUENT ROUNDS DONE. ALL SAFETY MEASURES IN PLACE.
--- NOTE | 2021-12-17 19:20 | NUR ---
ENDORSED PT TO STITCHER SET UP OPERATOR AUTOMATIC NURSE, IN STABLE CONDITION. ALSO ENDORSED THAT DOCUMENTS REQUESTED BY CONSERVATOR WERE ALREADY FAXED, NO RESPONSE YET FROM BLANCA (CONSERVATOR) REGARDING OBTAINING PICC LINE INSERTION CONSENT.
--- NOTE | 2021-12-17 19:30 | NUR ---
RECEIVED BEDSIDE REPORT FROM DAY SHIFT RN FOR CONTINUITY OF CARE. PT IS SLEEPING COMFORTABLY IN BED. PT IS NOT IN ANY ACUTE DISTRESS. BREATHING EVEN AND UNLABORED. FC IN PLACE DRAINING CLEAR YELLOW URINE. CALL LIGHT WITHIN REACH. ALL SAFETY MEASURES TAKEN. WILL CONTINUE TO MONITOR THE PT.
[2021-12-17 20:00] VITALS: BP 121/81
--- NOTE | 2021-12-17 20:35 | NUR ---
ALL DUE MEDS GIVEN. NO ADVERSE REACTION NOTED. WILL CONTINUE TO MONITOR THE PT.
--- NOTE | 2021-12-18 01:25 | NUR ---
PT IS SLEEPING IN BED COMFORTABLY. PT IS NOT IN ANY ACUTE DISTRESS. BREATHING EVEN AND UNLABORED. CALL LIGHT WITHIN REACH. ALL SAFETY MEASURES TAKEN. WILL CONTINUE TO MONITOR THE PT.
--- NOTE | 2021-12-18 04:30 | NUR ---
PT WAS CLEANED AND CHANGED. PT IS NOT IN ANY ACUTE DISTRESS. WAS COOPERATIVE. ALL SAFETY MEASURES TAKEN. WILL CONTINUE TO MONITOR THE PT.
[2021-12-18] MEDS: MEROPENEM 1,000 MG in NACL 0.9% 50 ML IV SCH ×3 (05:01→20:33)
[2021-12-18 05:23] LABS: ALBUMIN 2.6 g/dL (3.4-5.0); ANION GAP 9.8 (8-16); CARBON DIOXIDE 28.3 mmol/L (21-32); CREATININE 0.8 mg/dL (0.6-1.3); POTASSIUM 4.1 mmol/L (3.5-5.1); TOTAL BILIRUBIN 0.8 mg/dL (0.0-1.0)
[2021-12-18 05:33] LABS: BASOPHILS % (AUTO) 0.5 % (0.0-2.0); EOSINOPHILS # (AUTO) 0.1 K/uL (0-0.4); EOSINOPHILS % (AUTO) 0.7 % (0.0-4.0); HEMATOCRIT 39.1 % (36-52); HEMOGLOBIN 13.9 g/dL (12.0-18.0); LYMPHOCYTES # (AUTO) 1.6 K/uL (2.0-11.5); LYMPHOCYTES % (AUTO) 19.7 % (20.5-51.1); MEAN CORPUSCULAR HEMOGLOBIN 35 pg (27-31); MEAN CORPUSCULAR HGB CONC 36 g/dL (33-37); MEAN CORPUSCULAR VOLUME 98.7 fL (80-94); MONOCYTES # (AUTO) 0.8 K/uL (0.8-1.0); MONOCYTES % (AUTO) 10.3 % (1.7-9.3); NEUTROPHILS # (AUTO) 5.7 K/uL (1.8-7.7); NEUTROPHILS % (AUTO) 68.8 % (42.2-75.2); PLATELET COUNT (AUTO) 169 K/uL (140-450); RED BLOOD CELL COUNT(AUTO) 3.96 MIL/uL (4.20-6.10); RED CELL DISTRIBUTION WIDTH 13.8 % (11.6-13.7); WHITE BLOOD COUNT (AUTO) 8.3 K/uL (4.8-10.8)
--- NOTE | 2021-12-18 07:46 | NUR ---
ENDORSED PT TO DAY SHIFT RN FOR CONTINUITY OF CARE. ALL NEEDS MET. PT IS STABLE.
[2021-12-18 08:00] VITALS: BP 171/102
[2021-12-18 09:00] VITALS: BP 125/86
[2021-12-18] MEDS: LORazepam 1 MG TAB PO SCH ×3 (09:27→16:53)
[2021-12-18] MEDS: DOCUSATE SODIUM 100 MG GELCAP PO SCH ×2 (09:28→20:34)
[2021-12-18] MEDS: bisacodyL 10 MG SUPP RC SCH (09:28)
[2021-12-18] MEDS: POLYETHYLENE GLYCOL 17 GM/PKT PO SCH (09:29)
[2021-12-18] MEDS: TAMSULOSIN 0.4 MG CAP PO SCH (09:29)
--- NOTE | 2021-12-18 11:28 | NUR ---
repositioned patient 2 hourly and kept comfortable in bed.
[2021-12-18] MEDS ORDERED: MERO1VIA15 IV (12:20)
[2021-12-18 16:00] VITALS: BP 126/82
--- NOTE | 2021-12-18 19:35 | NUR ---
RECEIVED PATIENT FROM AM NURSE FOR CONTINUITY OF CARE.PT IS STABLE
--- NOTE | 2021-12-18 21:30 | NUR ---
ALL MEDICATIONS GIVEN,TOLERATED WELL,NO DISTRESS NOTED
[2021-12-19] VITALS: BP 131/65
--- NOTE | 2021-12-19 01:30 | NUR ---
PATIENT ASLEEP,BREATHING EVEN AND UNLABORED,NO DISTRESS NOTED
--- NOTE | 2021-12-19 03:30 | NUR ---
CLEANED AND REPOSITIONED PATIENT, NO DISTRESS NOTED
[2021-12-19] MEDS: MEROPENEM 1,000 MG in NACL 0.9% 50 ML IV SCH ×2 (04:59→12:32)
[2021-12-19 05:36] LABS: BASOPHILS % (AUTO) 0.5 % (0.0-2.0); EOSINOPHILS # (AUTO) 0.1 K/uL (0-0.4); EOSINOPHILS % (AUTO) 0.7 % (0.0-4.0); HEMATOCRIT 37.8 % (36-52); HEMOGLOBIN 13.4 g/dL (12.0-18.0); LYMPHOCYTES # (AUTO) 1.5 K/uL (2.0-11.5); LYMPHOCYTES % (AUTO) 17.8 % (20.5-51.1); MEAN CORPUSCULAR HEMOGLOBIN 35 pg (27-31); MEAN CORPUSCULAR HGB CONC 35 g/dL (33-37); MONOCYTES % (AUTO) 11.7 % (1.7-9.3); NEUTROPHILS % (AUTO) 69.3 % (42.2-75.2); PLATELET COUNT (AUTO) 189 K/uL (140-450); RED BLOOD CELL COUNT(AUTO) 3.78 MIL/uL (4.20-6.10); RED CELL DISTRIBUTION WIDTH 13.8 % (11.6-13.7); WHITE BLOOD COUNT (AUTO) 8.7 K/uL (4.8-10.8)
[2021-12-19 05:41] LABS: ANION GAP 9.2 (8-16); CARBON DIOXIDE 31.2 mmol/L (21-32); CREATININE 0.9 mg/dL (0.6-1.3); POTASSIUM 4.4 mmol/L (3.5-5.1)
--- NOTE | 2021-12-19 06:00 | NUR ---
PATIENT ASLEEP,BREATHING EVEN AND UNLABORED,NO DISTRESS NOTED
--- NOTE | 2021-12-19 07:35 | NUR ---
RECEIVED BEDSIDE REPORT FROM HEEL SPLITTER NURSE FOR CONTINUITY OF CARE. PT IS RESTING. BREATHING IS EVEN AND UNLABORED. NO SIGNS AND SYMPTOMS OF DISTRESS. IV PATENT AND INTACT. PT IS STABLE.
[2021-12-19 08:00] VITALS: BP 121/71
[2021-12-19] MEDS: LORazepam 1 MG TAB PO SCH ×3 (09:37→17:00)
[2021-12-19] MEDS: POLYETHYLENE GLYCOL 17 GM/PKT PO SCH (09:37)
[2021-12-19] MEDS: TAMSULOSIN 0.4 MG CAP PO SCH (09:38)
[2021-12-19] MEDS: DOCUSATE SODIUM 100 MG GELCAP PO SCH (09:38)
--- NOTE | 2021-12-19 10:30 | NUR ---
RECEIVED FAX FROM MD AND RN MAKING MIDLINE CONSENT DECISION FOR PT. INFOMRED MID LINE NURSE. WILL BE HERE SOON FOR MIDLINE. BREATHING IS EVEN AND UNLABORED. NO SIGNS AND SYMPTOMS OF DISTRESS. IV PATENT AND INTACT, IV FLUIDS RUNNING WELL. PT IS STABLE.
--- NOTE | 2021-12-19 11:50 | NUR ---
PT IS RESTING. BREATHING IS EVEN AND UNLABORED. NO SIGNS AND SYMPTOMS OF DISTRESS. IV PATENT AND INTACT, IV FLUIDS RUNNING WELL. PT IS STABLE.
--- NOTE | 2021-12-19 12:30 | NUR ---
PT IS RESTING. BREATHING IS EVEN AND UNLABORED. NO SIGNS AND SYMPTOMS OF DISTRESS. IV PATENT AND INTACT, IV FLUIDS RUNNING WELL. PT IS STABLE.
[2021-12-19 13:18] VITALS: BP 121/71
--- NOTE | 2021-12-19 15:00 | NUR ---
GAVE REPORT TO NURSE AT [facility]. PT IS RESTING. BREATHING IS EVEN AND UNLABORED. NO SIGNS AND SYMPTOMS OF DISTRESS. IV PATENT AND INTACT. PT IS STABLE.
--- NOTE | 2021-12-19 16:41 | NUR ---
WAITING FOR TRANSPORT TO ARRIVE TO TRANSFER PT TO [facility]. PT IS RESTING. BREATHING IS EVEN AND UNLABORED. NO SIGNS AND SYMPTOMS OF DISTRESS. IV PATENT AND INTACT. PT IS STABLE.
--- NOTE | 2021-12-19 17:10 | NUR ---
PT WAS PICKED UP BY TRANSPORT 10 MIN AGO AT 1700. PT WAS BREATHING EVEN AND UNLABORED. NO S/S OF DISTRESS. ALL BELONGINGS WITH PT. DC WITH LONG. IV WAS LEFT INTACT AND PATENT FOR IV ABX AT [facility] FOR 6 DAYS.
== END 2021-12-19 17:00 | DRG 871 ==
LOC: MED 10:31 → MTU 13:26
PROVIDERS: ADMIT Preventive Medicine Preventive Medicine/Occupational Environmental Medicine; ATTEND Preventive Medicine Preventive Medicine/Occupational Environmental Medicine
DX: A41.9 Sepsis, unspecified organism (principal); E43 Unspecified severe protein-calorie malnutrition; N39.0 Urinary tract infection, site not specified; Z16.12 Extended spectrum beta lactamase (ESBL) resistance; E87.1 Hypo-osmolality and hyponatremia; E83.119 Hemochromatosis, unspecified; E03.9 Hypothyroidism, unspecified; I10 Essential (primary) hypertension; F79 Unspecified intellectual disabilities; B96.20 Unspecified Escherichia coli [E. coli] as the cause of diseases classified elsewhere; D69.6 Thrombocytopenia, unspecified; Z20.822 Contact with and (suspected) exposure to COVID-19; D72.819 Decreased white blood cell count, unspecified; E83.42 Hypomagnesemia; R73.9 Hyperglycemia, unspecified; Z87.440 Personal history of urinary (tract) infections; Z68.28 Body mass index [BMI] 28.0-28.9, adult; Z86.16 Personal history of COVID-19; Z79.899 Other long term (current) drug therapy
CPT/HCPCS: 36415; 76770; 80048; 80053; 81001; 83605; 83735; 84100; 85025; 85651; 86140; 87040; 87081; 87086; 96365; 99285; J0696; J2185; J3475; J7060; Q0092

== ENCOUNTER 2021-12-25 11:35 | Inpatient (IN) | payer OTHER, MEDICAID ==
[~2021-12-25] VITALS: Ht 177.8 cm; Wt 86.2 kg
[~2021-12-25 11:35] MED LIST changes: -ACET-10509 PO; -ACET-503 PO; -BACI1PAC6 TP; -BEN50 PO; +BRIM5SOL2 OP; +CARB15DR61 OT; -CLIN300C2 PO; +DIVA500E2 PO; +LEVO0.124 PO; +MERO1VIA15 IV; +METH1TAB5 PO; +MULT-2247 PO; +OMEP-303 PO; +PEG15DRO10 OP; -QUET100T PO; -QUET200T PO; -[UNRECOGNIZED DRUG - CODE] OP; -[UNRECOGNIZED DRUG - CODE] PO; -[UNRECOGNIZED DRUG - CODE] PO
[2021-12-25 12:03] VITALS: BP 114/84
[2021-12-25] MEDS ORDERED: ACETAMINOPHEN 650 MG SUPP RC ONE (12:10)
--- NOTE | 2021-12-25 12:15 | NUR ---
61 Y/O MALE [facility] C/O GEN WEAK X A FEW DAYS. PT IS COLD AND CLAMMY, BS 149. PT PLACED ON 2L N/C FROM FIRE. PTS OXYGEN WAS INCREASE TO 4L DUE TO STATS IN THE LOW 90S. PLACED A 20G IN THE R AC WITH A BOLUS RUNNING. PT IS NON-VERBAL BUT FOLLOWS COMMANDS. PT UNABLE TO TELL US IF HE IS IN PAIN. PT RESTING IN BED. PMH:HYPOTHYROIDISM, UTI, BPH, SEE CHART FOR EXTENSIVE HX NKDA
[2021-12-25] MEDS ORDERED: NACL 0.9% 2,000 ML IV ONE (12:45)
[2021-12-25] MEDS ORDERED: cefTRIAXone 1,000 MG VIAL ONE (12:52)
--- NOTE | 2021-12-25 13:00 | NUR ---
LABS, BENJY AND BLOOD CULTURES DRAWN AND GIVEN TO LAB.
[2021-12-25 13:25] LABS: BASOPHILS % (AUTO) 0.5 % (0.0-2.0); HEMATOCRIT 52.7 % (36-52); HEMOGLOBIN 17.8 g/dL (12.0-18.0); LYMPHOCYTES % (AUTO) 9.8 % (20.5-51.1); MEAN CORPUSCULAR HEMOGLOBIN 35 pg (27-31); MEAN CORPUSCULAR HGB CONC 34 g/dL (33-37); MEAN CORPUSCULAR VOLUME 102.8 fL (80-94); MONOCYTES # (AUTO) 0.6 K/uL (0.8-1.0); MONOCYTES % (AUTO) 5.9 % (1.7-9.3); NEUTROPHILS # (AUTO) 8.3 K/uL (1.8-7.7); NEUTROPHILS % (AUTO) 83.8 % (42.2-75.2); PLATELET COUNT (AUTO) 349 K/uL (140-450); RED BLOOD CELL COUNT(AUTO) 5.13 MIL/uL (4.20-6.10); WHITE BLOOD COUNT (AUTO) 9.9 K/uL (4.8-10.8)
[2021-12-25] MEDS ORDERED: DEXT 5% / NACL 0.45% 1,000 ML IV SCH (15:15)
[2021-12-25 15:44] LABS: APPEARANCE,URINE CLEAR (CLEAR); BILIRUBIN,URINE NEGATIVE (NEGATIVE); BLOOD, URINE 3+ (NEGATIVE); LEUKOCYTE ESTERASE ,URINE NEGATIVE (NEGATIVE); NITRITE, URINE NEGATIVE (NEGATIVE); UGLUCOSE NEGATIVE (NEGATIVE)
[2021-12-25 15:48] LABS: COLOR,URINE AMBER (YELLOW)
[2021-12-25 15:51] LABS: ALBUMIN 3.6 g/dL (3.4-5.0); ASPARTATE AMINOTRANSFERASE 49 U/L (15-37); CHLORIDE 118 mmol/L (98-107); GFR ARICAN-AMERICAN 44 mL/min (>90); GLUCOSE 151 mg/dL (74-106); TOTAL BILIRUBIN 1.3 mg/dL (0.0-1.0); UREA NITROGEN, BLOOD 59 mg/dL (7-18)
[2021-12-25 16:00] LABS: SODIUM SERUM 159 mmol/L (136-145)
[2021-12-25] MEDS ORDERED: NACL 0.9% 1,000 ML IV ONE (16:00)
[2021-12-25] MEDS ORDERED: LACTATED RINGERS 1,000 ML IV STA (16:06)
[2021-12-25 16:15] LABS: HYALINE CASTS, URINE 0-10 /LPF (None Seen); RBC,URINE 80-100 /HPF (0-5); WBC,URINE 0-5 /HPF (0-5)
[2021-12-25] MEDS ORDERED: ACETAMINOPHEN 650 MG SUPP RC PRN (16:50)
--- NOTE | 2021-12-25 16:50 | NUR ---
RECTAL TEMP 101.[address] GAMBINO, DOCTOR IS AWARE OF ALL CRITICAL LABS. NEW ORDERS NOTED AND CARRIED OUT. ALL OTHER VSS. COOLING MEASURES IN PLACE.
[2021-12-25] MEDS: DEXTROSE 5% 1,000 ML IV SCH ×2 (17:00→22:05)
--- NOTE | 2021-12-25 17:45 | NUR ---
Patient will be admitted to care of DR GAMBINO. Admited to TELE. Will go to room 121B. Belongings list completed. Report to JONAH MAHONEY AT BEDSIDE. JONAH MAHONEY MADE AWARE OF RECENT FEVER WITH INTERVENTIONS AND SHE WILL FOLLOW UP.
[2021-12-25 18:00] VITALS: BP 128/79
--- NOTE | 2021-12-25 18:00 | NUR ---
PT ARRIVED AT UNIT VIA GURNEY, RECEIVED REPORT FROM MOISÉS MAHONEY, PT RESTING, IV TO RIGHT AC 20G PATENT INTACT, INFUSING LR @ 250ML/HR, AND LEFT FA 24G PATENT INTACT SL. PT ON 4LPM O2 VIA NC, NO SOB NOTED. LONG CATH IN PLACE, DRAINING TO GRAVITY. PT APHASIC, UNABLE TO LET NEEDS KNOWN, INITIAL ASSESSMENT DONE, ALL SAFETY PRECAUTION MET, CALL LIGHT WITHIN REACH, WILL CONTINUE TO MONITOR.
--- NOTE | 2021-12-25 18:13 | NUR ---
MRSA DONE, SWAB SENT TO LAB
[2021-12-25] MEDS ORDERED: HYDROcodone/APAP 5/325 MG 1 TAB TAB PO PRN (18:20)
[2021-12-25] MEDS ORDERED: LORazepam 2 MG/ML VIAL IVP PRN (18:20)
[2021-12-25] MEDS ORDERED: ACETAMINOPHEN 325 MG TAB PO PRN (18:20)
[2021-12-25] MEDS ORDERED: ACETAMINOPHEN 325 MG TAB PO SCH (18:20)
[2021-12-25] MEDS ORDERED: ONDANSETRON 4 MG/2 ML VIAL IVP PRN (18:20)
[2021-12-25] MEDS ORDERED: GLYCERIN OP PRN (18:20)
[2021-12-25] MEDS ORDERED: HYPROMELLOSE OP PRN (18:20)
[2021-12-25] MEDS ORDERED: PEG OP PRN (18:20)
[2021-12-25] MEDS ORDERED: POLYVINYL ALCOHOL 1.4% OP 15 ML SOL OP PRN (19:00)
[2021-12-25] MEDS ORDERED: IPRATROPIUM 0.02% 0.5 MG/2.5 ML NEBU INH SCH (19:00)
[2021-12-25] MEDS ORDERED: ALBUTEROL 0.083% 2.5 MG/3 ML NEBU INH SCH (19:00)
--- NOTE | 2021-12-25 19:30 | NUR ---
RECEIVED REPORT FROM AM NURSE FOR CONTINUITY OF CARE. PT IS NONVERBAL APHASIC UNABLE TO TRAC., IS LETHARGIC. LONG IN PLACE DRAINING CLEAR KACEY URINE.RFA 22G PATENT RAC 20G PATENT. O2 ON AT 4L/NC. O2 SAT94% ALL SAFETY MEASURES IN PLACE. WILL CONTINUE TO MONITOR.
--- NOTE | 2021-12-25 19:32 | NUR ---
ENDORSED PT TO WAREHOUSE ORDER SELECTOR NURSE SPRINGER FOR CONTINUOUS OF CARE
[2021-12-25 20:21] LABS: CREATINE KINASE MB 0.1 ng/mL (0-3.6)
[2021-12-25] MEDS: ALBUTEROL SULFATE/IPRATROPIU 3 ML SOL IH SCH (20:31)
[2021-12-25] MEDS ORDERED: NON-FORMULARY ITEM (Omeprazole 20 MG) PO SCH (21:00)
[2021-12-25] MEDS ORDERED: METHENAMINE HIPPURATE PO SCH (21:00)
[2021-12-25] MEDS ORDERED: MAGNESIUM HYDROXIDE 2400 MG/30 ML UDC PO SCH (21:00)
[2021-12-25] MEDS: DOCUSATE SODIUM 100 MG GELCAP PO SCH (21:30)
[2021-12-25] MEDS: DIVALPROEX 500 MG TABEC PO SCH (21:30)
[2021-12-25] MEDS ORDERED: VANCOMYCIN PER PHARMACY MC PRN (23:55)
[2021-12-26] VITALS: BP 128/83
--- NOTE | 2021-12-26 | NUR ---
DR SPRINGER INFECTIOUS DISEASE CONSULT CALLED FOR UPDATE. WROTE NEW ORDERS FOR ANTIBIOTICS. PT STARTED ON VANCO 1GM IN D5 250ML TO INFUSE AT 135CC/HR. RESPIRATORY GOT SPUTUM SPECIMEN THROUGH NASAL SUCTIONING. ALL SAFETY MEASURES IN PLACE WILL CONTINUE TO MONITOR.
[2021-12-26] MEDS ORDERED: VANCOMYCIN 1GM/DEXT 5% PREMIX 200 ML IV SCH (00:30)
[2021-12-26] MEDS ORDERED: VANCOMYCIN 1,000 MG VIAL ONE (00:47)
[2021-12-26] MEDS: ALBUTEROL SULFATE/IPRATROPIU 3 ML SOL IH SCH ×4 (01:59→19:49)
[2021-12-26] MEDS ORDERED: MEROPENEM 1,000 MG VIAL IV ONE (03:55)
[2021-12-26 04:00] VITALS: BP 124/76
[2021-12-26] MEDS: MEROPENEM 1,000 MG in NACL 0.9% 50 ML IV SCH ×3 (04:14→21:30)
--- NOTE | 2021-12-26 05:00 | NUR ---
MERREM IVPB INFUSED PER ORDER. TURNED AND REPOSITIONED PT. PT IN 121-A SCREAMING AGITATES 121-B. HAVE TRIED TO LIMIT STIMULI SO PT CAN REST. ALL SAFETY MEASURES IN PLACE.
[2021-12-26 06:22] LABS: BASOPHILS % (AUTO) 0.6 % (0.0-2.0); EOSINOPHILS % (AUTO) 0.1 % (0.0-4.0); HEMATOCRIT 41.2 % (36-52); HEMOGLOBIN 13.8 g/dL (12.0-18.0); LYMPHOCYTES # (AUTO) 1.1 K/uL (2.0-11.5); LYMPHOCYTES % (AUTO) 14.5 % (20.5-51.1); MEAN CORPUSCULAR HEMOGLOBIN 35 pg (27-31); MEAN CORPUSCULAR HGB CONC 34 g/dL (33-37); MEAN CORPUSCULAR VOLUME 102.9 fL (80-94); MONOCYTES # (AUTO) 0.4 K/uL (0.8-1.0); MONOCYTES % (AUTO) 5.4 % (1.7-9.3); NEUTROPHILS # (AUTO) 6.1 K/uL (1.8-7.7); NEUTROPHILS % (AUTO) 79.4 % (42.2-75.2); PLATELET COUNT (AUTO) 208 K/uL (140-450); RED BLOOD CELL COUNT(AUTO) 4.01 MIL/uL (4.20-6.10)
[2021-12-26 06:25] LABS: ANION GAP 1.2 (8-16); CARBON DIOXIDE 24.6 mmol/L (21-32); PHOSPHORUS 3.2 mg/dL (2.5-4.9); POTASSIUM 3.8 mmol/L (3.5-5.1)
[2021-12-26 07:03] LABS: WHITE BLOOD COUNT (AUTO) 7.7 K/uL (4.8-10.8)
[2021-12-26] MEDS ORDERED: MAGNESIUM HYDROXIDE 2400 MG/30 ML UDC PO PRN (07:14)
--- NOTE | 2021-12-26 07:30 | NUR ---
ENDORSED REPORT TO AM MARU ALVES FOR CONTINUITY OF CARE. AM SYNTHROID NOT GIVEN. ASKED HER TO GIVE IT. ALL SAFETY MEASURES IN PLACE. CONTINUE TO MONITOR
[2021-12-26 08:00] VITALS: BP 127/69
[2021-12-26] MEDS ORDERED: BRIMONIDINE TARTRATE 0.2% OP 5 ML BTL OP SCH (09:00)
[2021-12-26] MEDS ORDERED: TIMOLOL OP 0.5% 5 ML BTL OP SCH (09:00)
[2021-12-26] MEDS ORDERED: NON-FORMULARY ITEM (Multivit,Tx,Iron/Calcm/FA/Mins (Thera-M Caplet) 1 TAB) PO SCH (09:00)
[2021-12-26] MEDS: TAMSULOSIN 0.4 MG CAP PO SCH (09:36)
[2021-12-26] MEDS: MULTIVITAMIN/MINERALS 1 TAB PO SCH (09:37)
[2021-12-26] MEDS: DOCUSATE SODIUM 100 MG GELCAP PO SCH ×2 (09:37→21:45)
[2021-12-26] MEDS: DIVALPROEX 500 MG TABEC PO SCH ×2 (09:37→21:45)
[2021-12-26] MEDS: POLYETHYLENE GLYCOL 17 GM/PKT PO SCH (09:38)
[2021-12-26] MEDS: LORazepam 1 MG TAB PO SCH ×3 (09:38→16:44)
[2021-12-26] MEDS: LEVOTHYROXINE 0.075 MG TAB PO SCH (09:48)
[2021-12-26] MEDS: PANTOPRAZOLE 40 MG TABEC PO SCH (09:49)
--- NOTE | 2021-12-26 11:45 | NUR ---
DC PLANNING: THE PATIENT WAS BIBA FROM [facility] FOR C/O GENERALIZED WEAKNESS X 2 DAYS. PATIENT IS A READMISSION AND DC'D TO SNF ON DECEMBER 19 FOR CONTINUED IV ABX. HE NORMALLY RESIDES AT AN [facility], [facility]. H/O DEVELOPMENTAL DELAY, HTN, HEMOCHROMATOSIS, HYPOTHYROIDISM, COVID, BPH AND UTI'S. TEMP 103.3, HR 129, ON 3L NC WITH SATS AT 94%. CXR SHOWS LEFT LUNG CONSOLIDATION SUGGESTIVE OF PNA. LACTATE 4, TROPONIN 89, NA+ 159. GIVEN NS BOLUS AND ROCEPHIN IN ED, BLOOD, URINE AND SPUTUM CULTURES ORDERED. ORDERS FOR CONSULTS WITH ID, PULMO, NEPHRO AND CARDIOLOGY. CONTINUED ON VANCO AND MEREM. BEATRICE SPOKE WITH BLANCA FROM [facility] ([phone]) REGARDING DC PLANNING AND UROLOGY MANAGEMENT. BLANCA STATES THAT THE PATIENT IS FOLLOWED BY DR REBECCA BAUM WHO HAS RECOMMENDED THAT THE PATIENTS FC BE DC'D. PATIENT WAS HAVING STRAIGHT CATHS DONE FOUR TIMES A DAY HISTORICALLY AT [facility] BUT THE [place]AGE PERFORMER TORY HAS BEEN ASKING THAT THE FC STAY IN. BLANCA WOULD LIKE ANOTHER UROLOGY CONSULT HERE TO WEIGHT IN ON PATIENT HAVING A FC VS STRAIGHT CATHS THE PATIENT HISTORICALLY DID NOT HAVE SEVERE UTI'S REQUIRING IV ABX WHEN HE DIDN'T HAVE A FC. IF FC IS TO STAY IN BLANCA WOULD LIKE IT CHANGED HE IS ALMOST DUE FOR THE MONTHLY CHANGE RECOMMENDED BY UROLOGY. THE PATIENT'S BASELINE SINCE HAVING COVID IS BEING WC BOUND AND TOTAL CARE. THE PLAN AT THIS TIME IS FOR THE PATIENT TO RETURN TO [facility] FOR CONTINUED TREATMENT NEEDED. CM WILL FOLLOW. Addendum: 12/27/21 at 1548 by Maria Alejandra Ward CM DC PLANNING: NA+ 160, CL 124, PHOSPHOROUS 2.4, CRP 11.6, ESR 75. PRELIMINARY BLOOD CULTURES NEGATIVE URINE CULTURE NEGATIVE, SPUTUM CULTURE PENDING, PATIENT POSITIVE FOR MRSA NARES. RENAL US NEGATIVE FOR ACUTE FINDINGS, CXR UNCHANGED FROM 12/25. CONTINUES ON FERMIN AND JACKI, PATIENT TO RETURN TO [facility] WHEN CLINICALLY STABLE. CM WILL FOLLOW. Addendum: 12/28/21 at 0847 by Maria Alejandra Ward CM DC PLANNING: CM SPOKE WITH THE ATTENDING MD, ENDORSED THE CONCERNS FROM BLANCA AT [facility] CONCERNING THE PATIENTS INDWELLING FC INCLUDING BLANCA'S REQUEST FOR A UROLOGIST CONSULT HERE TO DETERMINE IF PATIENT CAN RETURN TO BEING STRAIGHT CATH'D 4X/DAY. ALSO ENDORSED REQUEST TO CHANGE FC IF UROLOGY DETERMINES THAT IT NEEDS TO REMAIN. CM WILL FOLLOW. Addendum: 12/28/21 at 1039 by Maria Alejandra Ward CM DC PLANING: PATIENTS NA+ IS TRENDING DOWN, TODAY TO 150, PATIENT REMAINS ON D5W@125/HR. URINE AND BLOOD CULTURES NEGATIVE, PRELIM SPUTUM CULTURE SHOWS GM+ RODS. ID, NEPHRO, PULMO AND CARDIOLOGY FOLLOWING, PATIENT ON RA. CM SPOKE WITH GIULIA AT [facility], FACILITY WILL ARRANGE TRANSPORTATION WHEN THE PATIENT IS CLINICALLY STABLE FOR DISCHARGE. CM WILL FOLLOW. Addendum: 12/29/21 at 1537 by Kenia Retana RN DC PLANNING SPOKE WITH DR MAKI Crowley STATED PT CAN BE DISCHARGED TO [facility]. CALLED AND FAXED ALL PAPERWORK TO [facility] SPOKE WITH HAL FARMER ACCEPTED PATIENT AND WILL ARRANGE TRANSPORT AND CALL BACK CM TO FOLLOW Addendum: 12/29/21 at 1631 by Kenia Retana RN DC PLANNING: PATIENT IS RETURNING TO [facility] PRASANTH CAN GO TO ROOM 25A # TO GIVE REPORT [phone] ARRANGED TRANSPORT WITH [facility] [employer] TIME 5:30 PM NOTIFIED JOSE RAMON MAHONEY.
[2021-12-26 12:00] VITALS: BP 130/79
--- NOTE | 2021-12-26 12:00 | NUR ---
DC PLANNING PATIENT IS A 61 YEAR OLD MALE BROUGHT IN FROM [facility] DUE TO GENERALIZED WEAKNESS FOR ABOUT 2-3 DAYS. SW MET PATIENT AT BEDSIDE TO DISCUSS AND GATHER HIS COLLATERAL INFORMATION PATIENT IS A [facility] CLIENT UNABLE TO PROVIDE HIS OWN INFORMATION. PATIENT IS NON-VERBAL WITH INTELLECTUAL DELAYS UNDER CONSERVATORSHIP WITH IRC/SW BLANCA BOWEN . SW SPOKE WITH PATIENT'S IRC/SW TO DISCUSS PATIENT'S HISTORY AND INFORMATION WELL PLAN FOR WHEN PATIENT DISCHARGES FROM [facility]. PER IRC/SW PREVIOUS TO ADMISSION PATIENT WAS LIVING AT [facility]. PER IRC/SW IF PATIENT IS NOT SENT BACK TO [facility] WITH IV ANTIBIOTICS AT DISCHARGE HE CAN RETURNED TO HIS HOME FACILITY; BUT IF HE IS IN NEED OF IV ANTIBIOTICS HE WILL BE GOING TO [facility]. IRC/SW PROVIDED [facility] DIRECTOR LÁZARO AT (SHE IS THE CONTACT FOR THE FACILITY). PER IRC/SW PATIENT IS CONSERVED AND FAMILY IS NOT VERY INVOLVED, IRC/SW IS VERY RESPONSIVE AND ASKED TO BE CALL IF THERE IS ANY CHANGES OR NEEDS FOR PATIENT. SW THANKED HER FOR THE INFORMATION AND SW/CM WILL BE FOLLOWING UP NEEDED.
[2021-12-26] MEDS: DEXTROSE 5% 1,000 ML IV SCH ×2 (13:00→22:20)
[2021-12-26] MEDS ORDERED: ALBUTEROL SULFATE/IPRATROPIU 3 ML SOL IH PRN (13:35)
[2021-12-26] MEDS: VANCOMYCIN 750 MG in DEXTROSE 5% 250 ML IV SCH (13:45)
[2021-12-26 16:00] VITALS: BP_SYST 110; BP_SYST 130; BP_DIAS 66; BP_DIAS 79
--- NOTE | 2021-12-26 18:48 | NUR ---
patient sleeping tight in bed. no restless behaviour noted.
--- NOTE | 2021-12-26 19:20 | NUR ---
[id number] REPOIRT FROM AM MARU ALVES FOR CONTINUITY OF CARE. PT IS SLEEPING IN BED RR EVEN AND UNLABORED WITH EQUAL CHEST RISE. SKIN IS INTACT . IV R ANTECUBITAL 20 G AND R HAND 22G . IVF D5NS @120CC/HR INFUSING. LONG CATHETER IN PLACE. ALL SAFETY MEASURES IN PLACE WILL CONTINUE TO MONITOR.
[2021-12-26 19:32] LABS: CREATINE KINASE MB 0.2 ng/mL (0-3.6)
[2021-12-26 20:00] VITALS: BP 108/78
--- NOTE | 2021-12-26 21:15 | NUR ---
HS MEDS GIVEN WITH THICKENED LIQUIDS AND IV ANTIBIOTICS INFUSED INTO RAC 20G IV. TURNED AND REPOSITIONED Q 2HRS. ALL SAFETY MEASURES IN PLACE. CONTINUE TO MONITOR.
[2021-12-27] VITALS: BP 101/68
[2021-12-27] MEDS: ALBUTEROL SULFATE/IPRATROPIU 3 ML SOL IH SCH ×4 (01:00→19:27)
--- NOTE | 2021-12-27 01:00 | NUR ---
VANCOMYCIN IVPB INFUSED INTO RAC IV 20G. PT TOLERATED IT WELL. NAD. WILL CONTINUE TO MONITOR.
[2021-12-27] MEDS: VANCOMYCIN 750 MG in DEXTROSE 5% 250 ML IV SCH ×2 (01:23→13:00)
[2021-12-27 04:00] VITALS: BP 100/66
[2021-12-27] MEDS: MEROPENEM 1,000 MG in NACL 0.9% 50 ML IV SCH ×3 (04:07→21:00)
[2021-12-27 05:28] LABS: BASOPHILS % (AUTO) 0.5 % (0.0-2.0); EOSINOPHILS # (AUTO) 0.1 K/uL (0-0.4); EOSINOPHILS % (AUTO) 1.3 % (0.0-4.0); HEMATOCRIT 40.1 % (36-52); HEMOGLOBIN 13.5 g/dL (12.0-18.0); LYMPHOCYTES # (AUTO) 1.1 K/uL (2.0-11.5); LYMPHOCYTES % (AUTO) 14.1 % (20.5-51.1); MEAN CORPUSCULAR HEMOGLOBIN 34 pg (27-31); MEAN CORPUSCULAR HGB CONC 34 g/dL (33-37); MEAN CORPUSCULAR VOLUME 102.1 fL (80-94); MONOCYTES # (AUTO) 0.3 K/uL (0.8-1.0); MONOCYTES % (AUTO) 3.8 % (1.7-9.3); NEUTROPHILS # (AUTO) 6.3 K/uL (1.8-7.7); NEUTROPHILS % (AUTO) 80.3 % (42.2-75.2); PLATELET COUNT (AUTO) 192 K/uL (140-450); RED BLOOD CELL COUNT(AUTO) 3.93 MIL/uL (4.20-6.10); RED CELL DISTRIBUTION WIDTH 13.8 % (11.6-13.7); WHITE BLOOD COUNT (AUTO) 7.8 K/uL (4.8-10.8)
[2021-12-27] MEDS: LEVOTHYROXINE 0.075 MG TAB PO SCH (05:52)
[2021-12-27 05:54] LABS: ALBUMIN 2.6 g/dL (3.4-5.0); ANION GAP 14.5 (8-16); CARBON DIOXIDE 25.4 mmol/L (21-32); CREATININE 0.9 mg/dL (0.6-1.3); PHOSPHORUS 2.4 mg/dL (2.5-4.9); POTASSIUM 3.9 mmol/L (3.5-5.1); TOTAL BILIRUBIN 0.6 mg/dL (0.0-1.0)
--- NOTE | 2021-12-27 06:10 | NUR ---
SYNTHROID GIVEN PO WITH THICKENED LIQUIDS. LONG CATHETER HAD 650 CC CLEAR KACEY URINE OUT. PT A&OX0. HAS MENTAL DELAY. ALL SAFETY MEASURES IN PLACE. WILL CONTINUE TO MONITOR.
--- NOTE | 2021-12-27 07:15 | NUR ---
ENDORSED REPORT TO KATARINA MAHONEY FOR CONTINUITY OF CARE . PT IS STABLE.
--- NOTE | 2021-12-27 07:20 | NUR ---
RECEIVED REPORT FROM CRYSTALIZER OPERATOR NURSE FOR CONTINUITY OF CARE. PATIENT HAVING BREATHING TREATMENT FROM RT. IV ON RIGHT AC ROCAEL 20 RUNNING D5 AT 100CC/HOURS TOLESRTED WELL. LONG CATHETER DRAINING WITH YELLOW CLEAR URINE NO HEMATURIA NOTED.
[2021-12-27 08:00] VITALS: BP 118/76
--- NOTE | 2021-12-27 08:00 | NUR ---
Patient's Plan of Care was discussed and reviewed with Rina ALMEIDA
--- NOTE | 2021-12-27 08:15 | NUR ---
PT. WITH LOW MARIA A SCALE AT HIGH RISK, CONTINUE TO FOLLOW PRESSURE INJURY PREVENTION INTERVENTIONS. -POSITIONING: TURN AND REPOSITION PATIENT Q 2H OR SOONER USE PILLOWS TO KEEP BONY PROMINENCES FROM DIRECT CONTACT WITH SURFACES USE REPOSITIONING WEDGES TO PROVIDE 30-DEGREE ANGLE FOR SIDE LYING POSITIONS OFFLOADING OR FOAM DRESSING TO ALL TUBING TO PREVENT MEDICAL DEVICES RELATED PRESSURE INJURY -RE-EVALUATING AND MANAGING INCONTINENCE MONITOR SKIN CONDITION DURING POSITION CHANGE DO NOT MASSAGE REDNESS, BONY PROMINENCES FREQUENT LUKASZ-CARE AND PROVIDE BARRIER CREAMS PRN IF SOILING MOISTURE CONTROL BY OFFER BED ROBINS/URINAL /ABSORBENT PAD TO WICK AND HOLD MOISTURE KEEP SKIN DRY AND PROTECT FROM FRICTION -MANAGE FRICTION/SHEAR/MOBILITY KEEP HOB AT THE LOWEST LEVEL OF ELEVATION NO MORE THAN 30 DEGREE UNLESS OTHERWISE CONTRAINDICATED USE LIFT SHEET OR TRANSFER DEVICE TO MOVE PATIENT AND PREVENT LATERAL SHEER. PROTECT HEELS, ELBOWS BONY PROMINENCES WITH SKIN BERRIES OR FOAM DRESSING IF EXPOSED TO FRICTION OFFLOAD BILATERAL HEELS BY PLACING PILLOWS UNDER CALVES AT ALL TIMES, UNLESS OTHERWISE CONTRAINDICATED -PRESSURE REDISTRIBUTION SURFACE THERAPY KRISTI ISOFLEX MATTRESS -NUTRITION: PLEASE FOLLOW RD RECOMMENDATIONS AND OFFER NUTRITION SUPPLEMENTS IF ORDERED. PLEASE CONTACT WOUND CARE NURSE FOR ANY QUESTION AND CHANGE OF WOUND CONDITION.
[2021-12-27] MEDS: MULTIVITAMIN/MINERALS 1 TAB PO SCH (09:03)
[2021-12-27] MEDS: LORazepam 1 MG TAB PO SCH ×3 (09:03→17:50)
[2021-12-27] MEDS: DOCUSATE SODIUM 100 MG GELCAP PO SCH ×2 (09:03→21:00)
[2021-12-27] MEDS: DIVALPROEX 500 MG TABEC PO SCH ×2 (09:03→21:00)
--- NOTE | 2021-12-27 09:03 | NUR ---
GIVEN ALL DUE MEDICATION AND SPOON FEED PATIENT. TOLERATED 100 % OF HIS MEAL. HEAD OF BED ELEVATED FOR ASPIRATION PRECAUTION.
[2021-12-27] MEDS: POLYETHYLENE GLYCOL 17 GM/PKT PO SCH (09:04)
[2021-12-27] MEDS: PANTOPRAZOLE 40 MG TABEC PO SCH (09:04)
[2021-12-27] MEDS: DEXTROSE 5% 1,000 ML IV SCH ×2 (09:06→19:02)
[2021-12-27] MEDS: TAMSULOSIN 0.4 MG CAP PO SCH (09:06)
[2021-12-27] MEDS ORDERED: POTASSIUM PHOSPHATE 15 MM in NACL 0.9% 250 ML IV SCH (10:00)
--- NOTE | 2021-12-27 10:39 | NUR ---
RECEIVED CALL FROM BLOOD BANK THAT PATIENT MRSA IS POSITIVE INFORM DR. LUGO. INITIATED MRSA PROTOCOL.
[2021-12-27 12:00] VITALS: BP 103/77
--- NOTE | 2021-12-27 12:30 | NUR ---
PATIENT SPOON FEED BY DOGGY DAYCARE ACTIVITIES DIRECTOR FOR HIS LUNCH PATIENT WITH GOOD APPETITE. NO COUGH OR CONGESTION WHEN EATING. HEAD OF BED ELEVATED FOR ASPIRATION PRECAUTION.
[2021-12-27] MEDS: MUPIROCIN CA NASAL 2% 1GM TUBE NS SCH (13:03)
[2021-12-27] MEDS: CHLORHEXADINE GLUC 2% CLOTH TP SCH (13:04)
--- NOTE | 2021-12-27 13:10 | NUR ---
RT AT BED SIDE.
--- NOTE | 2021-12-27 13:26 | NUR ---
GIVEN PATIENT WITH MEDICATION TOLERATED WELL. ALL SAFETY PRECAUTION IN PLACE.
[2021-12-27 15:25] LABS: ANION GAP 12.1 (8-16); CARBON DIOXIDE 26.8 mmol/L (21-32); POTASSIUM 3.9 mmol/L (3.5-5.1)
[2021-12-27 16:00] VITALS: BP 110/70
--- NOTE | 2021-12-27 16:09 | NUR ---
PATIENT ON STABLE CONDITION NO SIGNIFICANT CHANGE IN CONDITION. NO ADVERSE REACTION NOTED ON ANTIBIOTIC THERAPY. NO FEVER CHILLS OR CONGESTION. LONG CATHETER DRAINING WELL WITH YELLOW URINE NO HEMATURIA.
--- NOTE | 2021-12-27 17:51 | NUR ---
PATIENT AWAKE ON STABLE CONDITION. GIVEN MEDICATION ORDER TOLERATED WELL.
--- NOTE | 2021-12-27 18:17 | NUR ---
SPOON FEED PATIENT TOLERATED 100% OF HIS DINNER. HEAD OF BED ELEVATED FOR ASPIRATION PRECAUTION. NO COUGH OR CONGESTION WHILE EATING.
--- NOTE | 2021-12-27 19:28 | NUR ---
PATIENT ASLEEP GAVE REPORT TO NIGHTSHIFT NURSE FOR CONTINUITY OF CARE.
--- NOTE | 2021-12-27 19:29 | NUR ---
RECEIVED BEDSIDE REPORT FROM DAY SHIFT NURSE FOR CONTINUITY OF PATIENT CARE. PATIENT IS ASLEEP.
[2021-12-27 20:00] VITALS: BP 115/80
[2021-12-28] VITALS: BP 110/73
[2021-12-28] MEDS: VANCOMYCIN 750 MG in DEXTROSE 5% 250 ML IV SCH (01:13)
[2021-12-28] MEDS: ALBUTEROL SULFATE/IPRATROPIU 3 ML SOL IH SCH ×3 (01:26→19:00)
[2021-12-28] MEDS: DEXTROSE 5% 1,000 ML IV SCH ×3 (03:52→22:05)
[2021-12-28 04:00] VITALS: BP 106/62
[2021-12-28] MEDS: MEROPENEM 1,000 MG in NACL 0.9% 50 ML IV SCH ×3 (04:34→20:17)
[2021-12-28 04:53] LABS: BASOPHILS # (AUTO) 0.1 K/uL (0.00-0.22); BASOPHILS % (AUTO) 0.8 % (0.0-2.0); EOSINOPHILS # (AUTO) 0.2 K/uL (0-0.4); EOSINOPHILS % (AUTO) 2.5 % (0.0-4.0); HEMATOCRIT 34.8 % (36-52); HEMOGLOBIN 11.6 g/dL (12.0-18.0); LYMPHOCYTES # (AUTO) 1.1 K/uL (2.0-11.5); MEAN CORPUSCULAR HEMOGLOBIN 34 pg (27-31); MEAN CORPUSCULAR HGB CONC 33 g/dL (33-37); MEAN CORPUSCULAR VOLUME 102.4 fL (80-94); MONOCYTES # (AUTO) 0.2 K/uL (0.8-1.0); MONOCYTES % (AUTO) 3.3 % (1.7-9.3); NEUTROPHILS # (AUTO) 5.1 K/uL (1.8-7.7); NEUTROPHILS % (AUTO) 76.4 % (42.2-75.2); PLATELET COUNT (AUTO) 129 K/uL (140-450); RED CELL DISTRIBUTION WIDTH 13.8 % (11.6-13.7); WHITE BLOOD COUNT (AUTO) 6.7 K/uL (4.8-10.8)
[2021-12-28 05:27] LABS: ANION GAP 10.3 (8-16); CARBON DIOXIDE 26.6 mmol/L (21-32); CREATININE 0.8 mg/dL (0.6-1.3); POTASSIUM 3.9 mmol/L (3.5-5.1)
[2021-12-28 05:32] LABS: MAGNESIUM 1.7 mg/dL (1.8-2.4)
[2021-12-28] MEDS: LEVOTHYROXINE 0.075 MG TAB PO SCH (06:40)
--- NOTE | 2021-12-28 07:19 | NUR ---
PATIENT AWAKE, ALERT AND RESPONSIVE. PATIENT IS ON STABLE CONDITION, NO SOB OR DISTRESS. IV FLUID D5 IS RUNNING ORDERED. IV SALINE LOCK ON RIGHT HAND AND RIGHT AC, BOTH ARE INTACT AND PATENT. INDWELLING CATH IS INTACT AND PATENT. ENDORSED TO DAY SHIFT NURSE FOR CONTINUITY OF PATIENT CARE.
--- NOTE | 2021-12-28 07:20 | NUR ---
RECEIVED REPORT FROM DATA SECURITY COORDINATOR NURSE FOR CONTINUITY OF CARE. PT IN BED AT THIS TIME, RESTING. RESPIRATIONS ARE EVEN AND UNLABORED ON ROOM AIR. NO SIGNS OF DISTRESS NOTED. NO SIGNS OF PAIN OR DISCOMFORT NOTED. PT IS ALERT AND ORIENTED X0, HX OF DEVELOPMENTAL DELAY. UNABLE TO VERBALIZE NEEDS, THEREFORE ALL NEEDS WILL BE ANTICIPATED FOR. ABD IS NONTENDER, NONDISTENDED WITH BOWEL SOUNDS PRESENT. PT HAS IV TO R ARM 22G, AND TO R AC 20G. PT HAS LONG CATHETER IN PLACE, DRAINING YELLOW URINE. SKIN IS WARM, DRY, AND INTACT. CALL LIGHT WITHIN REACH. ALL SAFETY MEASURES IN PLACE. WILL CONTINUE TO MONITOR.
[2021-12-28 08:00] VITALS: BP 121/64
--- NOTE | 2021-12-28 08:00 | NUR ---
Patient's Plan of Care was discussed and reviewed with CARGO ROUTER: JOSE RAMON HAN
[2021-12-28] MEDS: TAMSULOSIN 0.4 MG CAP PO SCH (08:35)
[2021-12-28] MEDS: DOCUSATE SODIUM 100 MG GELCAP PO SCH ×2 (08:35→20:17)
[2021-12-28] MEDS: PANTOPRAZOLE 40 MG TABEC PO SCH (08:36)
[2021-12-28] MEDS: MULTIVITAMIN/MINERALS 1 TAB PO SCH (08:36)
[2021-12-28] MEDS: DIVALPROEX 500 MG TABEC PO SCH ×2 (08:36→20:16)
[2021-12-28] MEDS: POLYETHYLENE GLYCOL 17 GM/PKT PO SCH (08:36)
[2021-12-28] MEDS: LORazepam 1 MG TAB PO SCH ×3 (08:36→17:42)
--- NOTE | 2021-12-28 08:40 | NUR ---
ADMINISTERED ALL SCHEDULED MEDICATIONS. PT TOLERATED WELL. WILL CONTINUE TO MONITOR.
[2021-12-28] MEDS ORDERED: bisacodyL 10 MG SUPP RC SCH (09:00)
[2021-12-28] MEDS: VANCOMYCIN 1,000 MG in DEXTROSE 5% 250 ML IV SCH ×2 (09:43→21:18)
[2021-12-28] MEDS ORDERED: MAG SULF 2000 MG/WATER PREMIX 50 ML IV SCH (10:00)
--- NOTE | 2021-12-28 11:48 | NUR ---
PT CHANGED AND REPOSITIONED. PT TOLERATED WELL. WILL CONTINUE TO MONITOR.
[2021-12-28 12:00] VITALS: BP 113/67
[2021-12-28] MEDS: CHLORHEXADINE GLUC 2% CLOTH TP SCH (12:36)
[2021-12-28] MEDS: MUPIROCIN CA NASAL 2% 1GM TUBE NS SCH (12:37)
--- NOTE | 2021-12-28 12:45 | NUR ---
RECEIVED PT FROM NURSE ALBRIGHT FOR CONTINUITY OF CARE. PT IS SLEEPING. CHEST RISING AND FALLING WITHOUT ACUTE DISTRESS. IV SITE AT RIGHT ARM G22 AND RAC 20G RUNNING MG RIDER AT THIS TIME. NO SIGNS OF MEDICATION REACTION. PT IS ON HEATING OPERATORS ENGINEER. PT HAS URINARY CATHETER IN PLACE, INTACT. CALL LIGHT WITHIN REACH. SAFETY MEASURES IN PLACE. WILL CONTINUE TO MONITOR.
--- NOTE | 2021-12-28 12:49 | NUR ---
ENDORSED PT TO JUAN PABLO TYSON FOR CONTINUITY OF CARE. PT IS STABLE.
--- NOTE | 2021-12-28 14:37 | NUR ---
12/28/21 RD INITIAL ASSESSMENT COMPLETED PLEASE REFER TO NUTRITION ASSESSMENT UNDER CARE ACTIVITY FOR ESTIMATED NUTRITIONAL NEEDS. 1. CONTINUE WITH LOW SODIUM PUREE NECTAR THICK LIQUIDS DIET TOLERATED 2. RD TO FOLLOW-UP 2-3 DAYS, HIGH RISK REVIEWED BY CARLOS SOARES RD
--- NOTE | 2021-12-28 15:30 | NUR ---
DID PT ROUNDS. PT IN BED SLEEPING. NO DISTRESS NOTED BREATHING EVEN AND UNLABORED. WILL CONTINUE TO MONITOR.
[2021-12-28 16:00] VITALS: BP 110/63
--- NOTE | 2021-12-28 19:10 | NUR ---
ENDORSED PT TO SENIOR RD ENGINEER NURSE FOR CONTINUITY OF CARE. ALL NEEDS MET THROUGHOUT SHIFT. PT IS STABLE.
[2021-12-28 20:00] VITALS: BP 114/74
--- NOTE | 2021-12-28 21:30 | NUR ---
ALL ROUTINE MEDICATIONS GIVEN,TOLERATED WELL,NO DISTRESS NOTED
[2021-12-29] VITALS: BP 115/74
--- NOTE | 2021-12-29 01:00 | NUR ---
PATIENT ASLEEP,RESPIRATIONS EVEN AND UNLABORED,NO DISTRESS NOTED
[2021-12-29] MEDS: ALBUTEROL SULFATE/IPRATROPIU 3 ML SOL IH SCH ×3 (01:50→13:25)
--- NOTE | 2021-12-29 03:00 | NUR ---
CLEANED AND REPOSITIONED THE PATIENT, NO SOB NOTED,IV INTACT AND PATENT
[2021-12-29 04:00] VITALS: BP 106/66
[2021-12-29] MEDS: MEROPENEM 1,000 MG in NACL 0.9% 50 ML IV SCH ×2 (05:17→12:28)
--- NOTE | 2021-12-29 06:06 | NUR ---
PATIENT SLEEPING COMFORTABLY,NO SOB NOTED
[2021-12-29] MEDS: LEVOTHYROXINE 0.075 MG TAB PO SCH (06:15)
--- NOTE | 2021-12-29 07:15 | NUR ---
ENDORSED PT TO AM NURSE FOR CONTINUITY OF CARE. PT IS STABLE
--- NOTE | 2021-12-29 07:17 | NUR ---
RECEIVED REPORT FROM HOSPITAL CNA NURSE FOR CONTINUITY OF CARE. PT IN BED AT THIS TIME, SLEEPING. RESPIRATIONS ARE EVEN AND UNLABORED ON ROOM AIR. NO SIGNS OF DISTRESS NOTED. NO SIGNS OF PAIN OR DISCOMFORT NOTED. PT IS ALERT AND ORIENTED X1, HX OF DEVELOPMENTAL DELAY. UNABLE TO VERBALIZE NEEDS, THEREFORE ALL NEEDS WILL BE ANTICIPATED FOR. ABD IS NONTENDER, NONDISTENDED WITH BOWEL SOUNDS PRESENT. PT HAS IV TO R ARM 22G, AND TO R AC 20G, INFUSING D5 AT 125ML/HR. PT HAS LONG CATHETER IN PLACE, DRAINING YELLOW URINE. SKIN IS WARM, DRY, AND INTACT. CALL LIGHT WITHIN REACH. ALL SAFETY MEASURES IN PLACE. WILL CONTINUE TO MONITOR.
[2021-12-29 08:00] VITALS: BP 115/57
--- NOTE | 2021-12-29 08:00 | NUR ---
Patient's Plan of Care was discussed and reviewed with JUAN PABLO Alfred
[2021-12-29] MEDS: DEXTROSE 5% 1,000 ML IV SCH (08:02)
[2021-12-29 08:31] LABS: EOSINOPHILS # (AUTO) 0.1 K/uL (0-0.4); HEMATOCRIT 32.8 % (36-52); HEMOGLOBIN 11.2 g/dL (12.0-18.0); LYMPHOCYTES # (AUTO) 1.5 K/uL (2.0-11.5); LYMPHOCYTES % (AUTO) 27.1 % (20.5-51.1); MEAN CORPUSCULAR HEMOGLOBIN 34 pg (27-31); MEAN CORPUSCULAR HGB CONC 34 g/dL (33-37); MEAN CORPUSCULAR VOLUME 100.2 fL (80-94); MONOCYTES # (AUTO) 0.3 K/uL (0.8-1.0); MONOCYTES % (AUTO) 4.8 % (1.7-9.3); NEUTROPHILS # (AUTO) 3.6 K/uL (1.8-7.7); NEUTROPHILS % (AUTO) 66.1 % (42.2-75.2); PLATELET COUNT (AUTO) 113 K/uL (140-450); RED BLOOD CELL COUNT(AUTO) 3.27 MIL/uL (4.20-6.10); RED CELL DISTRIBUTION WIDTH 13.6 % (11.6-13.7); WHITE BLOOD COUNT (AUTO) 5.4 K/uL (4.8-10.8)
[2021-12-29 08:44] LABS: ALBUMIN 2.3 g/dL (3.4-5.0); CARBON DIOXIDE 26.7 mmol/L (21-32); CREATININE 0.8 mg/dL (0.6-1.3); MAGNESIUM 1.5 mg/dL (1.8-2.4); PHOSPHORUS 3.1 mg/dL (2.5-4.9); POTASSIUM 3.7 mmol/L (3.5-5.1); TOTAL BILIRUBIN 0.4 mg/dL (0.0-1.0)
[2021-12-29] MEDS: MULTIVITAMIN/MINERALS 1 TAB PO SCH (08:52)
[2021-12-29] MEDS: DOCUSATE SODIUM 100 MG GELCAP PO SCH (08:52)
[2021-12-29] MEDS: DIVALPROEX 500 MG TABEC PO SCH (08:53)
[2021-12-29] MEDS: PANTOPRAZOLE 40 MG TABEC PO SCH (08:53)
[2021-12-29] MEDS: LORazepam 1 MG TAB PO SCH ×3 (08:53→17:16)
--- NOTE | 2021-12-29 08:53 | NUR ---
ADMINISTERED ALL SCHEDULED MEDICATIONS. EDUCATED PT ON MEDS ADMINISTERED. PT TOLERATED WELL. WILL CONTINUE TO MONITOR.
[2021-12-29] MEDS: TAMSULOSIN 0.4 MG CAP PO SCH (08:54)
[2021-12-29] MEDS: POLYETHYLENE GLYCOL 17 GM/PKT PO SCH (08:54)
[2021-12-29] MEDS: VANCOMYCIN 1,000 MG in DEXTROSE 5% 250 ML IV SCH (09:44)
--- NOTE | 2021-12-29 09:50 | NUR ---
PT. WITH LOW MARIA A SCALE AT MODERATE TO HIGH RISK, CONTINUE TO FOLLOW PRESSURE INJURY PREVENTION INTERVENTIONS. -POSITIONING: TURN AND REPOSITION PATIENT Q 2H OR SOONER USE PILLOWS TO KEEP BONY PROMINENCES FROM DIRECT CONTACT WITH SURFACES USE REPOSITIONING WEDGES TO PROVIDE 30-DEGREE ANGLE FOR SIDE LYING POSITIONS OFFLOADING OR FOAM DRESSING TO ALL TUBING TO PREVENT MEDICAL DEVICES RELATED PRESSURE INJURY -RE-EVALUATING AND MANAGING INCONTINENCE MONITOR SKIN CONDITION DURING POSITION CHANGE DO NOT MASSAGE REDNESS, BONY PROMINENCES FREQUENT LUKASZ-CARE AND PROVIDE BARRIER CREAMS PRN IF SOILING MOISTURE CONTROL BY OFFER BED ROBINS/URINAL /ABSORBENT PAD TO WICK AND HOLD MOISTURE KEEP SKIN DRY AND PROTECT FROM FRICTION -MANAGE FRICTION/SHEAR/MOBILITY KEEP HOB AT THE LOWEST LEVEL OF ELEVATION NO MORE THAN 30 DEGREE UNLESS OTHERWISE CONTRAINDICATED USE LIFT SHEET OR TRANSFER DEVICE TO MOVE PATIENT AND PREVENT LATERAL SHEER. PROTECT HEELS, ELBOWS BONY PROMINENCES WITH SKIN BERRIES OR FOAM DRESSING IF EXPOSED TO FRICTION OFFLOAD BILATERAL HEELS BY PLACING PILLOWS UNDER CALVES AT ALL TIMES, UNLESS OTHERWISE CONTRAINDICATED -PRESSURE REDISTRIBUTION SURFACE THERAPY KRISTI ISOFLEX MATTRESS -NUTRITION: PLEASE FOLLOW RD RECOMMENDATIONS AND OFFER NUTRITION SUPPLEMENTS IF ORDERED. PLEASE CONTACT WOUND CARE NURSE FOR ANY QUESTION AND CHANGE OF WOUND CONDITION.
[2021-12-29 12:00] VITALS: BP 106/55
--- NOTE | 2021-12-29 12:36 | NUR ---
ASSISTED WITH CHANGING AND REPOSITIONING PT. PT TOLERATED WELL. WILL CONTINUE TO MONITOR.
[2021-12-29] MEDS: MUPIROCIN CA NASAL 2% 1GM TUBE NS SCH (13:04)
[2021-12-29] MEDS: CHLORHEXADINE GLUC 2% CLOTH TP SCH (13:04)
--- NOTE | 2021-12-29 15:56 | NUR ---
RECEIVED CALL FROM BACKEND TESTER, STATED THAT PT WILL BE DISCHARGING BACK TO [facility] TODAY. WILL CALL BACK WHEN TRANSPORTATION IS SET UP. WILL CONTINUE TO MONITOR.
[2021-12-29 16:00] VITALS: BP 119/71
[2021-12-29 16:52] VITALS: BP 115/57
--- NOTE | 2021-12-29 16:56 | NUR ---
CALLED [facility] AND GAVE REPORT TO DARYL. PT IS SCHEDULED TO BE PICKED UP AT 1730 BY [facility].
--- NOTE | 2021-12-29 18:01 | NUR ---
PT PICKED UP BY [facility]. REMOVED WRIST BAND. IV LEFT IN TACT, TO R FA PER FACILITY AND MAIL CLERKS SUPERVISOR REQUEST, SO THAT PT MAY CONTINUE IV ABX. ALL BELONGINGS TAKEN UPON DISCHARGE.
[2021-12-30] MEDS ORDERED: VANCOMYCIN 1,000 MG in DEXTROSE 5% 250 ML IV SCH (03:00)
== END 2021-12-29 18:00 | DRG 871 ==
LOC: MED 11:35 → MTU 15:20
PROVIDERS: ADMIT Preventive Medicine Preventive Medicine/Occupational Environmental Medicine; ATTEND Preventive Medicine Preventive Medicine/Occupational Environmental Medicine
DX: A41.9 Sepsis, unspecified organism (principal); J18.9 Pneumonia, unspecified organism; J96.01 Acute respiratory failure with hypoxia; I21.A1 Myocardial infarction type 2; E87.0 Hyperosmolality and hypernatremia; E87.2 Acidosis; N17.9 Acute kidney failure, unspecified; E03.9 Hypothyroidism, unspecified; E83.52 Hypercalcemia; E88.09 Other disorders of plasma-protein metabolism, not elsewhere classified; I12.9 Hypertensive chronic kidney disease with stage 1 through stage 4 chronic kidney disease, or unspecified chronic kidney disease; N18.9 Chronic kidney disease, unspecified; D64.9 Anemia, unspecified; D69.6 Thrombocytopenia, unspecified; R74.01 Elevation of levels of liver transaminase levels; Z20.822 Contact with and (suspected) exposure to COVID-19; E83.39 Other disorders of phosphorus metabolism; N40.0 Benign prostatic hyperplasia without lower urinary tract symptoms; E83.42 Hypomagnesemia; E83.119 Hemochromatosis, unspecified; Z87.440 Personal history of urinary (tract) infections
CPT/HCPCS: 36415; 71045; 76604; 76770; 80048; 80053; 80202; 81001; 82550; 82553; 83605; 83735; 83880; 84100; 84484; 85025; 85651; 86140; 87040; 87070; 87081; 87086; 87205; 89220; 93005; 94640; 96365; 99291; J0696; J2185; J3370; J3475; J7030; J7060; J7120; Q0092

== ENCOUNTER 2022-01-24 14:53 | Inpatient (IN) | payer OTHER, MEDICAID ==
[~2022-01-24] VITALS: Ht 180.3 cm; Wt 108.0 kg
[~2022-01-24 14:53] MED LIST changes: +METH1TAB PO; -METH1TAB5 PO
--- NOTE | 2022-01-24 14:53 | NUR ---
LEO WINSTON VIA GURNEY TO BED 05.
[2022-01-24 14:55] VITALS: BP 144/80
[2022-01-24] MEDS ORDERED: methylPREDNISolone SS 125 MG/2 ML VIAL IVP ONE (15:00)
[2022-01-24] MEDS ORDERED: ALBUTEROL SULFATE/IPRATROPIU 3 ML SOL IH ONE (15:00)
[2022-01-24] MEDS ORDERED: LORazepam 2 MG/ML VIAL IVP ONE (15:00)
--- NOTE | 2022-01-24 15:00 | NUR ---
61 Y/O MALE BIBA FOUND WHEEZING AND INCREASED WORK OF BREATH. PT HAS DEVELOPMENTAL DELAY AND IS NONVERBAL BASELINE.
[2022-01-24] MEDS ORDERED: MAG SULF 2000 MG/WATER PREMIX 50 ML IV ONE (15:05)
--- NOTE | 2022-01-24 15:12 | NUR ---
[facility]N THERAPY AND RESPIRATORY DRUG GIVEN ORDERED
[2022-01-24 15:26] LABS: BASOPHILS # (AUTO) 0.1 K/uL (0.00-0.22); BASOPHILS % (AUTO) 0.9 % (0.0-2.0); EOSINOPHILS # (AUTO) 0.1 K/uL (0-0.4); HEMATOCRIT 36.4 % (36-52); HEMOGLOBIN 12.3 g/dL (12.0-18.0); LYMPHOCYTES # (AUTO) 1.7 K/uL (2.0-11.5); LYMPHOCYTES % (AUTO) 25.8 % (20.5-51.1); MEAN CORPUSCULAR HEMOGLOBIN 33 pg (27-31); MEAN CORPUSCULAR HGB CONC 34 g/dL (33-37); MONOCYTES # (AUTO) 0.3 K/uL (0.8-1.0); MONOCYTES % (AUTO) 4.7 % (1.7-9.3); NEUTROPHILS # (AUTO) 4.3 K/uL (1.8-7.7); NEUTROPHILS % (AUTO) 67.6 % (42.2-75.2); PLATELET COUNT (AUTO) 263 K/uL (140-450); RED BLOOD CELL COUNT(AUTO) 3.68 MIL/uL (4.20-6.10); RED CELL DISTRIBUTION WIDTH 16.2 % (11.6-13.7); WHITE BLOOD COUNT (AUTO) 6.4 K/uL (4.8-10.8)
--- NOTE | 2022-01-24 15:29 | NUR ---
XR AT PT BEDSIDE
[2022-01-24 15:40] LABS: ALBUMIN 2.6 g/dL (3.4-5.0); ANION GAP 11.7 (8-16); CARBON DIOXIDE 28.3 mmol/L (21-32); CREATININE 0.6 mg/dL (0.6-1.3); TOTAL BILIRUBIN 0.3 mg/dL (0.0-1.0)
[2022-01-24] MEDS ORDERED: NACL 0.9% 3,000 ML IV ONE (16:10)
[2022-01-24] MEDS ORDERED: cefTRIAXone 1,000 MG VIAL ONE (17:51)
[2022-01-24] MEDS ORDERED: HYPROMELLOSE OP PRN (18:15)
[2022-01-24] MEDS ORDERED: PEG OP PRN (18:15)
[2022-01-24] MEDS ORDERED: GLYCERIN OP PRN (18:15)
--- NOTE | 2022-01-24 18:23 | NUR ---
SPOKE WITH CAMMIE GRECO NURSE AT FACILITY. REPORTS INSERTING LONG CATHETER 01/07/22. RECEIVED ORDERS FROM DR JIMENEZ TO DISCONTINUE CURRENT LONG AND REPLACE WITH NEW ONE. 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
[2022-01-24] MEDS ORDERED: PANTOPRAZOLE 40 MG TABEC PO SCH (18:45)
[2022-01-24] MEDS ORDERED: VANCOMYCIN PER PHARMACY MC PRN ×2 (18:45→18:50)
[2022-01-24] MEDS ORDERED: POLYVINYL ALCOHOL 1.4% OP 15 ML SOL OP PRN (18:50)
[2022-01-24] MEDS ORDERED: ALBUTEROL SULFATE/IPRATROPIU 3 ML SOL IH PRN (19:10)
--- NOTE | 2022-01-24 19:17 | NUR ---
Pt report given to JUAN PABLO LEONG. Transfer of care at this time.
--- NOTE | 2022-01-24 19:59 | NUR ---
flu and urine sent to lab
[2022-01-24 20:08] LABS: BILIRUBIN,URINE NEGATIVE (NEGATIVE); BLOOD, URINE TRACE-I (NEGATIVE); COLOR,URINE YELLOW (YELLOW); LEUKOCYTE ESTERASE ,URINE 1+ (NEGATIVE); NITRITE, URINE NEGATIVE (NEGATIVE); UGLUCOSE NEGATIVE (NEGATIVE)
[2022-01-24 20:23] LABS: APPEARANCE,URINE HAZY (CLEAR)
[2022-01-24 20:31] LABS: RBC,URINE 0-5 /HPF (0-5); WBC,URINE 0-5 /HPF (0-5)
[2022-01-24] MEDS ORDERED: NON-FORMULARY ITEM (Omeprazole 20 MG) PO SCH (21:00)
[2022-01-24] MEDS ORDERED: DOXYCYCLINE 100 MG in DEXTROSE 5% 100 ML IV SCH ×2 (21:00)
[2022-01-24] MEDS ORDERED: METHENAMINE HIPPURATE PO SCH (21:00)
[2022-01-24] MEDS ORDERED: MAGNESIUM HYDROXIDE 2400 MG/30 ML UDC PO PRN (21:00)
[2022-01-24] MEDS ORDERED: MEROPENEM 1,000 MG VIAL IV SCH (21:00)
--- NOTE | 2022-01-24 21:12 | NUR ---
Patient will be admitted to care of . Admited to TELEMETRY. Will go to room 119. Belongings list completed. Report tO VICKI.
--- NOTE | 2022-01-24 21:35 | NUR ---
RECEIVED PATIENT FROM ER NURSE VIA MIRANDA. PATIENT IS NON VERBAL, ON 3L NASAL CANNULA, IV INTACT AND PATTENT ON RT FOOT, NO [id number] NOTED
[2022-01-24] MEDS ORDERED: VANCOMYCIN 500 MG VIAL ONE (21:50)
[2022-01-24] MEDS ORDERED: VANCOMYCIN 1,000 MG VIAL ONE (21:50)
[2022-01-24] MEDS ORDERED: VANCOMYCIN 1,500 MG in DEXTROSE 5% 500 ML IV ONE (22:00)
[2022-01-25] VITALS (7 sets, daily range): BP systolic 113–149; BP diastolic 63–99
[2022-01-25] MEDS: DOCUSATE SODIUM 100 MG GELCAP PO SCH ×3 (00:11→20:25)
[2022-01-25] MEDS ORDERED: LORazepam 1 MG TAB ONE (00:26)
[2022-01-25] MEDS: DIVALPROEX 500 MG TABEC PO SCH ×3 (00:44→20:24)
--- NOTE | 2022-01-25 01:00 | NUR ---
PATIENT AGITATED,GAVE ATIVAN 2MG PO
[2022-01-25] MEDS ORDERED: PIPERACILLIN/TAZOBACTAM 3.375 GM VIAL IV ONE ×2 (01:09→05:26)
[2022-01-25] MEDS: BUDESONIDE 0.5 MG/2 ML NEBU INH SCH ×3 (01:23→19:54)
[2022-01-25] MEDS: PIPERACILLIN/TAZOBACTAM 3.375 GM in DEXTROSE 5% 50 ML IV SCH ×7 (01:29→23:42)
[2022-01-25] MEDS: ALBUTEROL SULFATE/IPRATROPIU 3 ML SOL IH SCH ×3 (02:10→19:54)
--- NOTE | 2022-01-25 03:00 | NUR ---
PATIENT ASLEEP,NO DISTRESS NOTED
[2022-01-25 05:21] LABS: BASOPHILS % (AUTO) 0.1 % (0.0-2.0); EOSINOPHILS % (AUTO) 0.2 % (0.0-4.0); HEMATOCRIT 33.3 % (36-52); LYMPHOCYTES # (AUTO) 0.3 K/uL (2.0-11.5); MEAN CORPUSCULAR HEMOGLOBIN 33 pg (27-31); MEAN CORPUSCULAR HGB CONC 33 g/dL (33-37); MEAN CORPUSCULAR VOLUME 100.4 fL (80-94); MONOCYTES # (AUTO) 0.3 K/uL (0.8-1.0); MONOCYTES % (AUTO) 4.7 % (1.7-9.3); NEUTROPHILS # (AUTO) 5.3 K/uL (1.8-7.7); PLATELET COUNT (AUTO) 228 K/uL (140-450); RED BLOOD CELL COUNT(AUTO) 3.31 MIL/uL (4.20-6.10); RED CELL DISTRIBUTION WIDTH 16.1 % (11.6-13.7); WHITE BLOOD COUNT (AUTO) 5.9 K/uL (4.8-10.8)
[2022-01-25] MEDS ORDERED: LEVOTHYROXINE 0.025 MG TAB ONE (05:53)
[2022-01-25] MEDS: LEVOTHYROXINE 0.025 MG, LEVOTHYROXINE 0.1 MG PO SCH ×2 (05:55)
--- NOTE | 2022-01-25 06:00 | NUR ---
PATIENT IS AWAKE, NO AGUITATION NOTED,NO COUGH OR SOB
--- NOTE | 2022-01-25 06:28 | NUR ---
TEXTED DR GAMBINO REGARDING THE DIET OF THE PATIENT
[2022-01-25] MEDS ORDERED: [UNRECOGNIZED DRUG - REMARK] MC SCH (06:30)
[2022-01-25 06:38] LABS: CARBON DIOXIDE 22.5 mmol/L (21-32); CREATININE 0.9 mg/dL (0.6-1.3); POTASSIUM 3.5 mmol/L (3.5-5.1)
--- NOTE | 2022-01-25 07:30 | NUR ---
ENDORSED PATIENT TO AM NURSE FOR CONTINUITY OF CARE. PT IS STABLE
--- NOTE | 2022-01-25 07:50 | NUR ---
RECEIVE ENDORSEMENT FROM PM SHIFT NURSE THAT PATIENT IS REST IN BED, PIV AT R. FEET 22G PATENT W/ TKO INFUSING AT 15ML/HR. WILL CONTINUE T O MONITOR PATIENT.
--- NOTE | 2022-01-25 08:00 | NUR ---
RECEIVE ENDORSEMENT FROM PM SHIFT NURSE THAT PATIENT REST IN BED, HEPARIN DRIP INFUSING AT 15ML/HR AT [facility] VIA 22G PIV CATHETER. WILL CONTINUE TO MONITOR. Addendum: 01/25/22 at 1924 by Aurelia Stephenson RN WRONG PATIENT
--- NOTE | 2022-01-25 08:50 | NUR ---
PATIENT HAS BEEN SCREENED AND CATEGORIZED HIGH NUTRITION RISK. PATIENT WILL BE SEEN WITHIN 1-2 DAYS OF ADMISSION. CONSULT RECEIVED FOR MALNUTRITION; REFERRAL RECEIVED NOT APPLICABLE NELIA PLEITEZ RD
[2022-01-25] MEDS ORDERED: NON-FORMULARY ITEM (Multivit,Tx,Iron/Calcm/FA/Mins (Thera-M Caplet) 1 TAB) PO SCH (09:00)
[2022-01-25] MEDS ORDERED: LORazepam 1 MG TAB PO PRN (09:00)
[2022-01-25] MEDS ORDERED: CARBAMIDE PEROXIDE 6.5% OT 15 ML BTL OT SCH (09:00)
[2022-01-25] MEDS: PANTOPRAZOLE 40 MG TABEC PO SCH (09:58)
[2022-01-25] MEDS: POLYETHYLENE GLYCOL 17 GM/PKT PO SCH (09:58)
[2022-01-25] MEDS: TAMSULOSIN 0.4 MG CAP PO SCH (09:59)
[2022-01-25] MEDS: MULTIVITAMIN/MINERALS 1 TAB PO SCH (09:59)
--- NOTE | 2022-01-25 11:10 | NUR ---
PATIENT REQUEST IV MORPHINE FOR 02/25 BACK PAIN, NEW IV AT R.HAND STARTED. AFTER PAIN MEDICATION GIVEN, IV SITE USE FOR NS 50ML/HR INFUSING USE. WILL CONTINUE TO MONITOR PATIENT.
--- NOTE | 2022-01-25 13:42 | NUR ---
DC PLANNING: THE PATIENT [facility], WITH C/O ACUTE DYSPNEA. NOTED TO BE WHEEZING AND STRUGGLING TO BREATHE, POSITIVE FOR INFLUENZA A&B AND COVID IN AUGUST OF THIS YEAR. EKG SHOWED SINUS TACH AT 122, CXR SHOWS OPACIFICATION AND PULMONARY VASCULAR CONGESTION WITH LARGE PLEURAL EFFUSION. GIVEN SOLUMEDROL, DUONEBS DOXYCYCLINE AND ROCEPHIN IN THE ED.LACTIC ACID TRENDING UPWARD AT 3.5. H/O DEVELOPMENTAL DELAY, HTN, GERD, HYPOTHYROIDISM AND BPH. INPATIENT MEDICATIONS OF VANCO, LASIX, ZOSYN AND DUONEBS, O2 2L NC. THE PATIENT IS TOTAL CARE AT [facility] AND IS FOLLOWED BY ANN-MARIE FERNANDEZ FOR UROLOGY MANAGEMENT. HE IS FOLLOWED BY BLANCA MINA FROM THE [facility], BEATRICE AVERY WARNER RIOS NOTIFYING HER OF THE ADMISSION. THE PATIENT WILL RETURN TO [facility] WHEN DC'D UNLESS HE NEEDS IV ABX, HE WILL THEN NEED SNF PLACEMENT WHICH WILL BE REVIEWED WITH BLANCA Lowe CM WILL FOLLOW. Addendum: 01/26/22 at 1149 by Maria Alejandra Ward CM DC PLANNING: MESSAGE FROM BLANCA Lowe AT THE [facility] THAT SHE IS ON VACATION. HER OFFICE NUMBER WAS GIVEN TO THE PATIENTS NURSE TO CALL AND ASK FOR THE OFFICER OF THE DAY TO GET CONSENT FOR AN US GUIDED THORACENTESIS THE [facility] MAKES MEDICAL DECISIONS FOR THE PATIENT. BEATRICE WILL FOLLOW. Addendum: 01/26/22 at 1232 by Maria Alejandra Ward CM DC PLANNING; CM CALLED THE [facility] ([phone]), OFFICER OF THE DAY FOR THIS PATIENT FOR MEDICAL DECISIONS IS VICKI MATTA, PHONE [phone]. CM WILL FOLLOW. Addendum: 01/29/22 at 1412 by Maria Alejandra Ward CM DC PLANNING: THORACENTESIS PENDING, CXR TODAY SHOWS NEAR COMPLETE OPACIFICATION OF THE LEFT HEMITHORAX. NONSPECIFIC GASEOUS DISTENTION IN THE UPPER ABDOMEN ALSO DOCUMENTED, GI ORDERED AN ABDOMINAL XRAY. PATIENT NOW ON HIGH FLOW NC AT 40 LITERS, SECRETIONS TOO THICK TO SUCTION PER R.T. NOTES. REMAINS ON VANCO, LASIX, AND STARTED ON ERYTHROMYCIN IV. CM WILL FOLLOW. Addendum: 01/29/22 at 1442 by Maria Alejandra Ward DC PLANNING: BEATRICE SPOKE WITH BLANCA MALHOTRA FROM THE [facility], SHE WAS UPDATED ON THE PATIENTS CURRENT CLINICAL STATUS, CLINICALS ALSO FAXED TO HER. AUTHORIZATION FOR THE THORACENTESIS WAS FAXED TO [facility] ON SATURDAY PER BEATRICE RIOS CONFIRMED WITH THE CHARGE NURSE JALEN THAT IT WAS RECEIVED. US GUIDED THORACENTESIS DONE TODAY. BEATRICE WILL FOLLOW. Addendum: 01/30/22 at 1424 by Maria Alejandra Ward CM DC PLANNING: BEATRICE SPOKE WITH DR GAMBINO TO ASK ABOUT REFERRING THE PATIENT TO [facility], DR GAMBINO IS IN AGREEMENT. BEATRICE ALSO SPOKE WITH BLANCA Cope FROM THE [facility], SHE APPROVES REFERRAL, PREFERS THE PATIENT GO TO THE [facility]AC[facility]. REFERRAL FAXED TO [facility], BEATRICE WILL FOLLOW. Addendum: 01/31/22 at 1353 by Maria Alejandra Ward CM DC PLANNING: BEATRICE SPOKE WITH DEANDRE AT [facility], THE PATIENT HAS BEEN APPROVED, DEANDRE IS WORKING ON A BED AT THE [facility]. CM WILL FOLLOW. Addendum: 02/01/22 at 1020 by Maria Alejandra Ward CM DC PLANNING: BEATRICE SPOKE WITH BLANCA Cope FROM THE [facility], [place] TO REFER THE PATIENT TO OTHER [facility] LOCATIONS OUTSIDE OF [place] AND [facility]. BLANCA IS ON VACATION NEXT WEEK, TATY BATEMAN ([phone]) WILL BE COVERING FOR HER. BEATRICE ALSO SPOKE WITH DEANDRE AT [facility] TO LET HIM KNOW TO LOOK FOR PLACEMENT OPTIONS AT [facility]. BEATRICE WILL FOLLOW. Addendum: 02/02/22 at 1149 by Kenia Retana RN DC PLANNING: CALLED DEANDRE BABIN [facility] REGARDING THE BED PER DEANDRE MIGHT HAVE A BED AT [facility], FAXED THE UPDATE CLINICALS. BEATRICE TO FOLLOW Addendum: 02/02/22 at 1539 by Kenia Retana RN DC PLANNING: RECEIVED A CALL FROM DEANDRE BABIN [facility] STATED PATIENTT GOT ACCEPTED AT [facility] ACCEPTING DR WILL BE DR BOOTH. CAN GO TO ROOM 4B. # TO GIVE REPORT [phone] [facility]ED TRANSPORT WITH [employer] DOMINGUEZ THE EARLIEST BRIDGE INSPECTOR TIME IS 22:30 PM NOTIFIED ADITYA MAHONEY.
[2022-01-25] MEDS: VANCOMYCIN 1,000 MG in DEXTROSE 5% 250 ML IV SCH (16:45)
--- NOTE | 2022-01-25 17:30 | NUR ---
DC PLANNING PATIENT IS A 61 YEAR OLD MALE ADMITTED TO THE [facility]/ED ON 01/24/2022 DUE TO ACUTE DYSPNEA. PATIENT WAS WHEEZING WITH INCREASED WORK OF BREATHING. PATIENT HAS TESTED POSITIVE FOR INFLUENZA AN HAS NEGATIVE TEST ON COVID 19. PATIENT HAS ALSO HISTORY OF DEVELOPMENTAL DELAYS. SW MET WITH PATIENT AT BEDSIDE TO DISCUSS AND GATHER PATIENT'S COLLATERAL INFORMATION.PATIENT WAS AWAKE BUT IS UNABLE TO PROVIDE HIS OWN INFORMATION. SW CALL PATIENT'S FACILITY [phone] WITH ANGUS DANIELS(THE RN IN THE FACILITY) THE PATIENT AD[facility]ITTED [facility], [facility]. PER ANGUS PATIENT IS TOTAL CARE AT HIS FACILITY AND IS USUALLY CARE BY ANN-MARIE FERNANDEZ UROLOGY MANAGEMENT. PATIENT IS A CLIENT FROM [facility] AND HIS SATELLITE MANAGER IS BLANCA MINA. PER ANGUS PATIENT WILL RETURN TO [facility] WHEN HE IS READY AND STABLE TO DISCHARGE FROM [facility]. PER ANGUS PATIENT SHOULD BE ABLE TO RETURN TO THE SAME PLACEMENT UNLESS HIS IRC WORKER OR DOCTOR RECOMMENDS DIFFERENT PLACEMENT FOR HIM WHEN HE IS READY AND STABLE TO DISCHARGE FROM [facility]. PER ANGUS THE HOUSE SAFETY AND HEALTH MANAGER JOSE RAMON DE IS WHO SHOULD BE CONTACTED TO [facility] WHEN THE PATIENT IS READY TO DC BACK TO THE HOUSE. ARTHUR ATTEMPTED TO CONTACT PATIENT'S [facility] SATELLITE MANAGER BLANCA MINA AT NO RESPONSE AND ARTHUR LEFT A VOICEMAIL MGS WITH DIRECT CONTACT INFORMATION AND A REQUEST FOR A CALL BACK. ARTHUR OR CM WILL FOLLOW UP NEEDED.
--- NOTE | 2022-01-25 19:22 | NUR ---
NDORSE PT TO PM SHIFT NURSE THAT PATIENT REST IN BED, NS INFUSING AT 15ML/HR AT R. FOOT PIV CATHETER
--- NOTE | 2022-01-25 19:25 | NUR ---
RECEIVED PATIENT FROM AM NURSE FOR CONTINUITY OF CARE.PATIENT IS STABLE
[2022-01-25] MEDS: FUROSEMIDE 40 MG/4 ML VIAL IVP SCH (20:24)
--- NOTE | 2022-01-25 21:30 | NUR ---
ALL MEDICATIONS GIVEN,NOADVERSE REACTIONS NOTED
[2022-01-26] VITALS: BP 121/78
--- NOTE | 2022-01-26 01:00 | NUR ---
PATIENT ASLEEP,BREATYHING EVEN AND UNLABORED,NO DISTRESS NOTED
[2022-01-26] MEDS: ALBUTEROL SULFATE/IPRATROPIU 3 ML SOL IH SCH ×4 (01:54→18:50)
--- NOTE | 2022-01-26 03:00 | NUR ---
PATIENT ASLEEP,BREATHING EVEN AND UNLABORED,NO DISTRESS NOTED
[2022-01-26 04:00] VITALS: BP 141/83
[2022-01-26 05:42] LABS: BASOPHILS % (AUTO) 0.4 % (0.0-2.0); EOSINOPHILS # (AUTO) 0.1 K/uL (0-0.4); EOSINOPHILS % (AUTO) 1.5 % (0.0-4.0); HEMATOCRIT 29.9 % (36-52); HEMOGLOBIN 10.3 g/dL (12.0-18.0); LYMPHOCYTES # (AUTO) 0.9 K/uL (2.0-11.5); LYMPHOCYTES % (AUTO) 18.6 % (20.5-51.1); MEAN CORPUSCULAR HEMOGLOBIN 34 pg (27-31); MEAN CORPUSCULAR HGB CONC 35 g/dL (33-37); MEAN CORPUSCULAR VOLUME 98.2 fL (80-94); MONOCYTES # (AUTO) 0.4 K/uL (0.8-1.0); MONOCYTES % (AUTO) 8.1 % (1.7-9.3); NEUTROPHILS # (AUTO) 3.6 K/uL (1.8-7.7); NEUTROPHILS % (AUTO) 71.4 % (42.2-75.2); PLATELET COUNT (AUTO) 211 K/uL (140-450); RED BLOOD CELL COUNT(AUTO) 3.04 MIL/uL (4.20-6.10); RED CELL DISTRIBUTION WIDTH 16.2 % (11.6-13.7)
[2022-01-26 05:46] LABS: ANION GAP 8.5 (8-16); CARBON DIOXIDE 32.1 mmol/L (21-32); CREATININE 0.8 mg/dL (0.6-1.3); POTASSIUM 3.6 mmol/L (3.5-5.1)
--- NOTE | 2022-01-26 06:00 | NUR ---
PATIENT AWKE,NO AGITATION NOTED,NO SOB OR COUGH NOTED
[2022-01-26] MEDS ORDERED: LEVOTHYROXINE 0.1 MG TAB ONE (06:10)
[2022-01-26] MEDS ORDERED: LEVOTHYROXINE 0.025 MG TAB ONE (06:10)
[2022-01-26] MEDS: PIPERACILLIN/TAZOBACTAM 3.375 GM in DEXTROSE 5% 50 ML IV SCH ×3 (06:13→18:04)
[2022-01-26] MEDS: LEVOTHYROXINE 0.025 MG, LEVOTHYROXINE 0.1 MG PO SCH ×2 (06:17)
--- NOTE | 2022-01-26 07:20 | NUR ---
RECEIVED REPORT FROM SHOE SHINER NURSE FOR CONTINUITY OF CARE. PT IN BED SLEEPING AT THIS TIME. RESPIRATIONS ARE EVEN AND UNLABORED ON 3L 02 VIA NC. PT IS ALERT AND ORIENTED X1. PT IS ON CARDIAC MONITORING. ABD IS NONTENDER, NONDISTENDED WITH BOWEL SOUNDS PRESENT. LAST BOWEL MOVEMENT WAS THIS MORNING. PT IS ON PUREE DIET, TOLERATING WELL. PT HAS LONG CATHETER IN PLACE, DRAINING YELLOW URINE. PT HAS IV TO R FOOT, 22G. SKIN IS WARM, DRY, AND INTACT. CALL LIGHT WITHIN REACH. ALL SAFETY MEASURES IN PLACE. WILL CONTINUE TO MONITOR.
[2022-01-26] MEDS: BUDESONIDE 0.5 MG/2 ML NEBU INH SCH ×2 (07:42→19:00)
[2022-01-26 08:00] VITALS: BP 131/84
[2022-01-26] MEDS: MULTIVITAMIN/MINERALS 1 TAB PO SCH (08:36)
[2022-01-26] MEDS: TAMSULOSIN 0.4 MG CAP PO SCH (08:36)
[2022-01-26] MEDS: DOCUSATE SODIUM 100 MG GELCAP PO SCH ×2 (08:36→20:55)
[2022-01-26] MEDS: POLYETHYLENE GLYCOL 17 GM/PKT PO SCH (08:36)
[2022-01-26] MEDS: PANTOPRAZOLE 40 MG TABEC PO SCH (08:36)
[2022-01-26] MEDS: DIVALPROEX 500 MG TABEC PO SCH ×2 (08:36→20:55)
--- NOTE | 2022-01-26 08:40 | NUR ---
ADMINISTERED ALL SCHEDULED MEDICATIONS. EDUCATED PT ON MEDS ADMINISTERED. WILL CONTINUE TO MONITOR.
[2022-01-26] MEDS: FUROSEMIDE 40 MG/4 ML VIAL IVP SCH ×2 (09:31→20:55)
[2022-01-26] MEDS: VANCOMYCIN 1,000 MG in DEXTROSE 5% 250 ML IV SCH (09:32)
--- NOTE | 2022-01-26 11:12 | NUR ---
DID ROUNDS ON PT. PT IN BED RESTING AT THIS TIME. NO SIGNS OF DISTRESS NOTED. WILL CONTINUE TO MONITOR.
[2022-01-26 12:00] VITALS: BP 150/72
--- NOTE | 2022-01-26 14:39 | NUR ---
ASSISTED WITH CHANGING AND REPOSITIONING PT. PT TOLERATED WELL. WILL CONTINUE TO MONITOR.
--- NOTE | 2022-01-26 14:51 | NUR ---
01/26/22 RD INITIAL ASSESSMENT COMPLETED PLEASE REFER TO NUTRITION ASSESSMENT UNDER CARE ACTIVITY FOR ESTIMATED NUTRITIONAL NEEDS. 1. CONTINUE PUREE, NA2GM DIET TOLERATED -RECOMMEND ORAL SUPPLEMENTS IF PT PO INTAKE IS < 75% 2. MONITOR NUTRITION-RELATED LAB VALUES 3. RD TO FOLLOW-UP 3-5 DAYS, MODERATE RISK NELIA PLEITEZ RD
--- NOTE | 2022-01-26 15:10 | NUR ---
RECEIVED CONSENT, CALLED [facility] TO INFORM THEM. PER CLINICAL NURSE LEADER, PROCEDURE IS ON HOLD DUE TO [facility] MD WANTING TO SPEAK WITH MD THAT ORDERED THORACENTESIS. WILL CONTINUE TO MONITOR. Addendum: 01/26/22 at 1999 by Aubrie Martinez LVN THIS NOTE WAS FOR 1710, NOT 1510.
[2022-01-26 16:00] VITALS: BP 145/76
--- NOTE | 2022-01-26 16:25 | NUR ---
RECEIVED A CALL FROM [facility], PT CONSERVATOR, STATING THAT THEY WILL BE FAXING OVER CONSENT FOR THORACENTESIS. AWAITING FAX. WILL CONTINUE TO MONITOR.
--- NOTE | 2022-01-26 19:22 | NUR ---
ENDORSED PT TO CARAMEL MAKER NURSE FOR CONTINUITY OF CARE. PT IS STABLE.
[2022-01-26 20:00] VITALS: BP 125/89
--- NOTE | 2022-01-26 21:07 | NUR ---
SCHEDULED MEDICATIONS ADMINISTERED ORDERED.
[2022-01-27] VITALS: BP 138/92
--- NOTE | 2022-01-27 00:39 | NUR ---
CALLED [phone] PICC LINE NURSE AND LEFT MESSAGE THAT PT NEEDS MIDLINE.
[2022-01-27] MEDS: ALBUTEROL SULFATE/IPRATROPIU 3 ML SOL IH SCH ×4 (01:00→19:00)
--- NOTE | 2022-01-27 01:00 | NUR ---
hhntx not given patient vomitting. no sob noted. sats on room air 95%
--- NOTE | 2022-01-27 03:11 | NUR ---
PATIENT VOMITED X2. NOTIFIED DR. HILLARY GAMBINO WAITING FOR ORDERS. PATIENT CLEANED, CHANGED AND REPOSITIONED. NO SOB NOTED
[2022-01-27 03:36] LABS: ANION GAP 9.3 (8-16); CARBON DIOXIDE 32.4 mmol/L (21-32); CREATININE 0.8 mg/dL (0.6-1.3)
[2022-01-27 03:47] LABS: POTASSIUM 2.7 mmol/L (3.5-5.1)
[2022-01-27 04:00] VITALS: BP 113/82
[2022-01-27] MEDS: VANCOMYCIN 1,000 MG in DEXTROSE 5% 250 ML IV SCH ×2 (04:00→19:09)
[2022-01-27] MEDS: PIPERACILLIN/TAZOBACTAM 3.375 GM in DEXTROSE 5% 50 ML IV SCH ×6 (06:00→23:58)
[2022-01-27] MEDS ORDERED: LEVOTHYROXINE 0.025 MG TAB ONE (06:28)
[2022-01-27] MEDS ORDERED: LEVOTHYROXINE 0.1 MG TAB ONE (06:28)
[2022-01-27] MEDS: LEVOTHYROXINE 0.025 MG, LEVOTHYROXINE 0.1 MG PO SCH ×2 (06:31)
--- NOTE | 2022-01-27 06:58 | NUR ---
PLACE A CALL TO BLANCA MINA , LEFT A VOICE MESSAGE REGARDING PICC LINE CONSENT TO BE SIGNED.
--- NOTE | 2022-01-27 07:24 | NUR ---
ENDORSED TO AM NURSE FOR CONTINUITY OF CARE. NO ACUTE DISTRESS NOTED AT THIS TIME.
--- NOTE | 2022-01-27 07:25 | NUR ---
RECEIVED BEDSIDE REPORT FROM CLAIMS SUPPORT SPECIALIST NURSE FOR CONTINUITY OF CARE. PT IS AWAKE, A&OX1. BREATHING IS UNLABORED. LONG CATH IN PLACE DRAINING YELLOW URINE. ON TELE MONITOR. SKIN IS WARM AND DRY. NO IV CURRENTLY IN PLACE. PT IS STABLE. PLAN OF CARE DISCUSSED.
[2022-01-27 07:50] LABS: BASOPHILS % (AUTO) 0.4 % (0.0-2.0); EOSINOPHILS # (AUTO) 0.1 K/uL (0-0.4); EOSINOPHILS % (AUTO) 0.7 % (0.0-4.0); HEMATOCRIT 38.3 % (36-52); HEMOGLOBIN 13.3 g/dL (12.0-18.0); LYMPHOCYTES # (AUTO) 1.1 K/uL (2.0-11.5); LYMPHOCYTES % (AUTO) 11.1 % (20.5-51.1); MEAN CORPUSCULAR HEMOGLOBIN 34 pg (27-31); MEAN CORPUSCULAR HGB CONC 35 g/dL (33-37); MONOCYTES # (AUTO) 0.7 K/uL (0.8-1.0); MONOCYTES % (AUTO) 7.5 % (1.7-9.3); NEUTROPHILS % (AUTO) 80.3 % (42.2-75.2); PLATELET COUNT (AUTO) 391 K/uL (140-450); RED BLOOD CELL COUNT(AUTO) 3.95 MIL/uL (4.20-6.10); RED CELL DISTRIBUTION WIDTH 17.1 % (11.6-13.7); WHITE BLOOD COUNT (AUTO) 9.9 K/uL (4.8-10.8)
[2022-01-27 08:00] VITALS: BP 148/93
[2022-01-27] MEDS: BUDESONIDE 0.5 MG/2 ML NEBU INH SCH ×2 (08:07→19:30)
[2022-01-27] MEDS ORDERED: POTASSIUM CHLORIDE 40 MEQ, LIDOCAINE MPF 1% 25 MG in NACL 0.9% 250 ML IV ONE (08:15)
[2022-01-27] MEDS ORDERED: MAG SULF 2000 MG/WATER PREMIX 50 ML IV PRN (08:15)
--- NOTE | 2022-01-27 08:27 | NUR ---
SPOKE TO DR. NAQVI ON THE PHONE. SHE IS INQUIRING ABOUT THE THORACENTESIS. INFORMED HER PER DR. BARRAZA NOTES FROM YESTERDAY HE STATED TO HOLD OFF ON THORACENTESIS IF THERE IS NEGATIVE NET FLUID BALANCE. YESTERDAY INTAKE WAS 170 ML AND OUTPUT WAS [address] PLEITEZ AND PROVIDED THIS INFORMATION AND ASKED IF HE WOULD LIKE TO STILL HOLD THIS ORDER OR FOLLOW THROUGH WITH THORACENTESIS TODAY. WILL WAIT FOR RESPONSE.
[2022-01-27] MEDS ORDERED: bisacodyL 10 MG SUPP RC PRN (09:00)
--- NOTE | 2022-01-27 09:24 | NUR ---
INFORMED PHARMACIST, PEÑA, THAT THE MEDICATIONS DIVALPROEX AND PROTONIX CANNOT BE CRUSHED. PEÑA STATED TO CHANGE TO LIQUID FORM FOR DIVALPROEX AND VIAL FOR PROTONIX.
[2022-01-27] MEDS: POLYETHYLENE GLYCOL 17 GM/PKT PO SCH (09:43)
[2022-01-27] MEDS: TAMSULOSIN 0.4 MG CAP PO SCH (09:43)
[2022-01-27] MEDS: MULTIVITAMIN/MINERALS 1 TAB PO SCH (09:43)
[2022-01-27] MEDS: DOCUSATE 100 MG/10 ML UDC PO SCH ×2 (09:43→21:48)
[2022-01-27] MEDS: DIVALPROEX SPRINKLES 125 MG CAPDR PO SCH ×2 (09:43→21:48)
--- NOTE | 2022-01-27 10:01 | NUR ---
CALLED [facility] ([phone]) AND SPOKE TO THE OFFICER OF THE DAY. CALLED TO INQUIRE ABOUT CONSENT FOR MIDLINE PLACEMENT. ASKED WHO I COULD SPEAK WITH ABOUT GETTING MEDICAL CONSENT FOR THIS PATIENT. SHE STATED THAT THE ONLY PEOPLE THAT CAN GIVE CONSENT FOR MEDICAL PURPOSES IS FAMILY MEMBERS OR TWO DOCTORS CONSENT TO THE PROCEDURE. SHE STATED SHE IS NOT VERIFIED TO GIVE CONSENT. SHE STATED SHE WILL CALL BACK SHORTLY WITH INFORMATION ON POSSIBLY FAMILY MEMBERS. WILL WAIT FOR CALL BACK.
--- NOTE | 2022-01-27 10:39 | NUR ---
RECEIVED MESSAGE FROM DR. PLEITEZ STATING THAT PT DOES NOT NEED THORACENTESIS SINCE HE IS RESPONDING TO LASIX WELL. WILL CONTINUE TO MONITOR INTAKE AND OUTPUT. DR. NAQVI MADE AWARE BY TIM KOO RN.
--- NOTE | 2022-01-27 11:50 | NUR ---
NEW IV INSERTED BY TIM KOO RN IN THE RIGHT FINGER 24 GAUGE. MEDICATIONS WILL BE ADMINISTERED SHORTLY.
[2022-01-27 12:00] VITALS: BP 115/91
[2022-01-27] MEDS: PANTOPRAZOLE 40 MG INJ VIAL IVP SCH (12:03)
[2022-01-27] MEDS: FUROSEMIDE 40 MG/4 ML VIAL IVP SCH ×2 (12:03→21:48)
--- NOTE | 2022-01-27 12:22 | NUR ---
PT HAD A FEW EPISODES OF EMESIS, YELLOW LIQUID. MESSAGED DR. NAQVI AND ASKED IF I COULD ORDER ZOFRAN IV PRN. WILL WAIT FOR RESPONSE. PT WAS CLEANED AND REPOSITIONED. HIGH FOLWERS POSITION IN PLACE. O2 SAT IS 92% ON 2L O2 NC. WILL CONTINUE TO MONITOR.
--- NOTE | 2022-01-27 12:49 | NUR ---
RECEIVED CALL FROM [facility] TILE POWER SHEAR OPERATOR. SHE STATED THAT ONLY FAMILY ON FILE IS FATHER, DORINA WESTON, . CALLED THE FATHER AND IT STATED THAT THE LINE HAS BEEN DISCONNECTED.
[2022-01-27] MEDS ORDERED: POTASSIUM CHLORIDE 40 MEQ, LIDOCAINE MPF 1% 25 MG in NACL 0.9% 250 ML IV SCH (13:00)
--- NOTE | 2022-01-27 13:05 | NUR ---
DR. NAQVI ORDERED ZOFRAN 4 MG IVP Q 6H PRN NAUSEA/ VOMITING. WILL ADMIN ONCE VERIFIED.
[2022-01-27] MEDS: ONDANSETRON 4 MG/2 ML VIAL IVP PRN (13:21)
--- NOTE | 2022-01-27 13:24 | NUR ---
PT WAS GIVEN ZOFRAN FOR VOMITING PRN ORDERED. ALSO GIVEN KRIDER 40 MEQ WITH LIDOCAINE FOR POTASSIUM LEVEL OF 2.7. WILL CONTINUE TO MONITOR PT ON TELE MONITOR.
[2022-01-27 16:00] VITALS: BP 120/86
--- NOTE | 2022-01-27 16:00 | NUR ---
PT IS SLEEPING. NO DISTRESS NOTED. ST ON TELE MONITOR. ON 2L O2 NC WITH BREATHING UNLABORED. IV IS PATENT AND INTACT. WILL CONTINUE TO MONITOR.
--- NOTE | 2022-01-27 19:51 | NUR ---
ENDORSED PT TO FINISHER DENTURE NURSE FOR CONTINUITY OF CARE. PT IS STABLE AT THIS TIME. PLAN OF CARE DISCUSSED.
--- NOTE | 2022-01-27 19:52 | NUR ---
RECEIVED REPORT FROM MORNING SHIFT NURSE. PATIENT IS AOX1, RESTING COMFORTABLY IN BED, FLACC-0 AND HAS DEVELOPMENTAL DELAY. PATIENT HAS IV ON RIGHT FINGER GAUGE 24, RUNNING WITH VANCOMYCIN 165ML/HR AND ON PUREE DIET. PATIENT IS ON 2L NC, TOLERATING WELL, NO SHORTNESS OF BREATH NOTED. BREATHING REGULAR NON-LABORED. LONG CATHETER DRAINING CLEAR YELLOW URINE.CALL LIGHT WITHIN REACH, ALL SAFETY MEASURES IMPLEMENTED.
[2022-01-27 20:00] VITALS: BP 134/94
--- NOTE | 2022-01-27 21:48 | NUR ---
ALL SCHEDULED MEDICATION WAS GIVEN. NO S/S OF DISTRESS WAS NOTED, SATING AT 93%. HOB ELEVATED, BED WHEELS LOCKED, CALL LIGHT WITHIN REACH AND ALL SAFETY MEASURES IMPLEMENTED.
--- NOTE | 2022-01-27 22:30 | NUR ---
RT CAME AND PATIENT O2 LEVEL IS NOW AT 4L NC, WELL TOLERATED. WILL CONTINUE TO MONITOR.
[2022-01-28] VITALS: BP 134/94
[2022-01-28] MEDS: ALBUTEROL SULFATE/IPRATROPIU 3 ML SOL IH SCH ×4 (01:10→19:23)
--- NOTE | 2022-01-28 02:10 | NUR ---
SPUTUM WAS COLLECTED FOR SPUTUM CULTURE AND SENT IN LAB. WILL CONTINUE TO MONITOR.
[2022-01-28 04:00] VITALS: BP 148/79
[2022-01-28] MEDS: PIPERACILLIN/TAZOBACTAM 3.375 GM in DEXTROSE 5% 50 ML IV SCH ×4 (05:07→23:19)
[2022-01-28] MEDS ORDERED: LEVOTHYROXINE 0.1 MG TAB ONE (05:43)
[2022-01-28] MEDS ORDERED: LEVOTHYROXINE 0.025 MG TAB ONE (05:43)
[2022-01-28] MEDS: VANCOMYCIN 1,000 MG in DEXTROSE 5% 250 ML IV SCH ×2 (05:46→17:57)
--- NOTE | 2022-01-28 05:46 | NUR ---
ALL SCHEDULED MEDICATION WAS GIVEN PER MD ORDER. NO S/S OF RESPIRATORY DISTRESS, WELL TOLERATED. CALL LIGHT WITHIN REACH. ALL SAFETY MEASURES WAS IMPLEMENTED. WILL CONTINUE TO MONITOR.
[2022-01-28] MEDS: LEVOTHYROXINE 0.025 MG, LEVOTHYROXINE 0.1 MG PO SCH ×2 (05:48)
--- NOTE | 2022-01-28 07:25 | NUR ---
RECEIVED BEDSIDE REPORT FROM PUBLIC SAFETY OFFICER NURSE FOR CONTINUITY OF CARE. PT IS AWAKE WITH EYES OPEN. TRACKS WITH EYES. WORDS ARE GARBLED AND REPETITIVE. NO DISTRESS NOTED ON 3L O2 NC. O2 SAT IS 92%. LONG CATH IN PLACE DRAINING CLEAR, YELLOW URINE. SKIN IS WARM, DRY, AND INTACT. IV IS IN INTACT AND IN PLACE IN THE RIGHT FINGER. PT IS STABLE. PLAN OF CARE DISCUSSED.
[2022-01-28 08:00] VITALS: BP 127/95
[2022-01-28] MEDS: BUDESONIDE 0.5 MG/2 ML NEBU INH SCH ×2 (08:10→19:23)
--- NOTE | 2022-01-28 08:10 | NUR ---
RECEIVED ON HUMIDIFIED SUPPLEMENTAL OXYGEN AT 4 LPM VIA NC SATURATION 90-91% GOOD CHEST RISE COARSE RHONCHI BILATERAL NASOTRACHEAL SUCTIONING (NTS) REQUIRED USING STERILE APPLIED LUBRICANT TO THE DISTAL END OF A 14 FR SUCTION CATHETER INSERTED INTO RIGHT NASAL SEPTUM X 2 ATTEMPTS EXTRACTING SMALL YELLOW SECRETIONS DURING 1ND ATTEMPT PATIENT PRESENTING WITH GASTRIC EMESIS NTS PROCEDURE STOPPED AT THIS TIME ATTEMPTED OROPHARYNGEAL SUCTION WHICH INITIATED GASTRIC EMESIS ORAL CAVITY SUCTIONED FOR GASTRIC RESIDUAL HHN THERAPY'S GIVEN AT THIS TIME POST HHN THERAPY INCREASED FIO2 TO 6 LPM VIA NC MONIQUE/RN NOTIFIED REVIEWED EMESIS EPISODE; POSSIBILITY OF ASPIRATION WITH RN; RN TO GIVE ZOFRAN; CXR?
--- NOTE | 2022-01-28 10:00 | NUR ---
BED BATH WAS GIVEN AND PT WAS REPOSITIONED. IV IS STILL INTACT. BREATHING IS UNLABORED. PT IS RESTING COMFORTABLY.
[2022-01-28] MEDS: PANTOPRAZOLE 40 MG INJ VIAL IVP SCH (10:04)
[2022-01-28] MEDS: ONDANSETRON 4 MG/2 ML VIAL IVP PRN (10:06)
[2022-01-28] MEDS: DOCUSATE 100 MG/10 ML UDC PO SCH ×2 (10:06→22:29)
[2022-01-28] MEDS: MULTIVITAMIN/MINERALS 1 TAB PO SCH (10:06)
[2022-01-28] MEDS: POLYETHYLENE GLYCOL 17 GM/PKT PO SCH (10:07)
[2022-01-28] MEDS: TAMSULOSIN 0.4 MG CAP PO SCH (10:07)
[2022-01-28] MEDS: DIVALPROEX SPRINKLES 125 MG CAPDR PO SCH ×2 (10:07→22:28)
[2022-01-28 11:22] LABS: BASOPHILS # (AUTO) 0.1 K/uL (0.00-0.22); BASOPHILS % (AUTO) 1.1 % (0.0-2.0); EOSINOPHILS % (AUTO) 0.2 % (0.0-4.0); HEMATOCRIT 37.8 % (36-52); HEMOGLOBIN 12.7 g/dL (12.0-18.0); LYMPHOCYTES # (AUTO) 0.9 K/uL (2.0-11.5); LYMPHOCYTES % (AUTO) 7.2 % (20.5-51.1); MEAN CORPUSCULAR HEMOGLOBIN 33 pg (27-31); MEAN CORPUSCULAR HGB CONC 34 g/dL (33-37); MONOCYTES # (AUTO) 1.1 K/uL (0.8-1.0); MONOCYTES % (AUTO) 8.5 % (1.7-9.3); NEUTROPHILS # (AUTO) 10.9 K/uL (1.8-7.7); PLATELET COUNT (AUTO) 394 K/uL (140-450); RED BLOOD CELL COUNT(AUTO) 3.86 MIL/uL (4.20-6.10)
[2022-01-28 11:26] LABS: CREATININE 0.9 mg/dL (0.6-1.3)
[2022-01-28] MEDS: FUROSEMIDE 40 MG/4 ML VIAL IVP SCH ×2 (11:30→22:26)
--- NOTE | 2022-01-28 11:30 | NUR ---
LASIX WAS GIVEN PAST DUE TIME WHILE WAITING FOR LABWORK TO COME BACK. POTASSIUM LEVEL 3.0. BP WAS STABLE. WILL NOTIFY MD FOR PRN. LASIX WAS ADMINISTERED. WILL CONTINUE TO MONITOR.
--- NOTE | 2022-01-28 11:46 | NUR ---
PT'S POTASSIUM LEVEL IS 3.0. INFORMED DR. NAQVI AND SHE ORDERED KRIDER WITH LIDOCAINE 40 MEQ. WILL ADMINISTER ONCE VERIFIED.
[2022-01-28 11:54] LABS: WHITE BLOOD COUNT (AUTO) 13.2 K/uL (4.8-10.8)
[2022-01-28 12:00] VITALS: BP 119/55
--- NOTE | 2022-01-28 12:31 | NUR ---
PT WAS GIVEN K RIDER 40 MEQ IVPB FOR POTASSIUM LEVEL OF 3.0. PT STABLE AT THIS TIME.
[2022-01-28] MEDS ORDERED: POTASSIUM CHLORIDE 40 MEQ, LIDOCAINE MPF 1% 25 MG in NACL 0.9% 250 ML IV SCH (13:30)
--- NOTE | 2022-01-28 14:17 | NUR ---
TWO DOCTOR'S CONSENTED TO THE MIDLINE PLACEMENT, DR. NAQVI AND DR. ALVAREZ. WITNESSED BY MARU AMAYA. CALLED PICC LINE NURSE GABRIELLE AND HE WILL CALL BACK SHORTLY WITH AN ETA.
[2022-01-28 16:00] VITALS: BP 126/84
--- NOTE | 2022-01-28 17:11 | NUR ---
PICC LINE NURSE AT BEDSIDE, GABRIELLE, PLACING MIDLINE IN THE RIGHT UPPER ARM. PT TOLERATING WELL.
--- NOTE | 2022-01-28 17:16 | NUR ---
PER GABRIELLE PICC LINE NURSE, MIDLINE IN THE RIGHT UPPER ARM IS OKAY TO USE.
--- NOTE | 2022-01-28 19:30 | NUR ---
ENDORSED PT TO REGISTRY NP NURSE FOR CONTINUITY OF CARE. PT IS STABLE. PLAN OF CARE DISCUSSED.
--- NOTE | 2022-01-28 19:31 | NUR ---
RECEIVED REPORT FROM AM NURSE FOR CONTINUITY OF CARE. PT IS STABLE IN BED. A&OX1.DENIES PAIN. ON O2 3L/NC.RR EVEN AND UNLABORED WITH EQUAL CHEST RISE. IV GINGER MIDLINE INFUSING IV ABX: ZOSYN AND VANCOMYCIN WITH 0.9NS MAINTENANCE IV @5CC/HR. GI INTACT.SKIN INTACT.PT IS BED BOUND.LONG DRAINING CLEAR KACEY URINE.ALL SAFETY MEASURES IN PLACE. CALL LIGHT WITHIN REACH. WILL CONTINUE TO MONITOR.
[2022-01-28 20:00] VITALS: BP 137/84
[2022-01-29] VITALS: BP 129/76
[2022-01-29] MEDS: ALBUTEROL SULFATE/IPRATROPIU 3 ML SOL IH SCH ×4 (01:30→19:56)
--- NOTE | 2022-01-29 02:17 | NUR ---
PT HAVING SEVERE CONGESTION, UNABLE TO COUGH UP ANY SECRETIONS. NTS NEEDED AT THIS TIME. SX NASALLY AND ORALLY AND ONLY RETRIEVED SCANT SECRETIONS. PLACED PT ON 10L SIMPLE MASK. O2 SATS 92-93%. WILL CONT TO MONITOR.
[2022-01-29 04:00] VITALS: BP 150/70
[2022-01-29] MEDS: ACETAMINOPHEN 325 MG TAB PO PRN (04:13)
--- NOTE | 2022-01-29 04:13 | NUR ---
T-100.2 TYLENOL 650 MG GIVEN CRUSHED IN PUDDING WITH APPLESAUCE CHASER. AT 0530 T-100.7 AXILLARY TYLENOL NOT VERY EFFECTIVE. PT STILL ON O2 10L PER SIMPLE MASK. WILL CONTINUE TO MONITOR.
--- NOTE | 2022-01-29 04:55 | NUR ---
VANCO TROUGH DRAWN BY LAB STILL PENDING AT 0610. RESPIRATORY THERAPIST STARTED PT ON HIGH FLOW OXYGEN AT 40L/MIN, FIO2 55% DUE TO HIS CONGESTION AND ONLY 93% O2 SAT ON 10L O2 PER SIMPLE MASK.
[2022-01-29] MEDS: PIPERACILLIN/TAZOBACTAM 3.375 GM in DEXTROSE 5% 50 ML IV SCH ×3 (04:58→17:09)
--- NOTE | 2022-01-29 05:10 | NUR ---
PLACED PT ON [facility] OF 40L/FIO2 55%. PT WOB INCREASED ALONG WITH HIS CONGESTION. AVOIDING BIPAP AT THIS TIME DUE TO HIS CONGESTION. UNABLE TO SX ANYTHING OUT NASALLY OR ORALLY DUE TO THICK SECRETIONS. [facility] WILL PROVIDE HUMIDITY.
[2022-01-29] MEDS: VANCOMYCIN 1,000 MG in DEXTROSE 5% 250 ML IV SCH (06:00)
[2022-01-29] MEDS ORDERED: LEVOTHYROXINE 0.1 MG TAB ONE (06:16)
[2022-01-29] MEDS ORDERED: LEVOTHYROXINE 0.025 MG TAB ONE (06:16)
[2022-01-29] MEDS: LEVOTHYROXINE 0.025 MG, LEVOTHYROXINE 0.1 MG PO SCH ×2 (06:18)
--- NOTE | 2022-01-29 06:45 | NUR ---
LAB REPORTED VANCO TROUGH LEVEL 20.1. CHARGE NURSE NYDIA MCCOLLUM RN AWARE , CALLED PHARMACY WHO REPORTED BACK TO HOLD THE 0600 DOSE.
[2022-01-29] MEDS ORDERED: BUDESONIDE 0.5 MG/2 ML NEBU INH ONE (07:50)
--- NOTE | 2022-01-29 07:58 | NUR ---
ENDORSED PATIENT TO AM NURSE FOR CONTINUITY OF CARE. PT IS STABLE. ALL NEEDS MET THROUGHOUT THE SHIFT.
[2022-01-29 08:00] VITALS: BP 118/73
[2022-01-29] MEDS: BUDESONIDE 0.5 MG/2 ML NEBU INH SCH ×2 (08:07→19:56)
--- NOTE | 2022-01-29 08:09 | NUR ---
GOT REPORT FROM THE NIGHT NURSE , PT IS VOCAL AWAKE. NO SOB.[id number]
[2022-01-29] MEDS: DOCUSATE 100 MG/10 ML UDC PO SCH ×2 (08:36→21:18)
[2022-01-29] MEDS: FUROSEMIDE 40 MG/4 ML VIAL IVP SCH ×2 (08:37→21:21)
[2022-01-29] MEDS: DIVALPROEX SPRINKLES 125 MG CAPDR PO SCH ×2 (08:37→21:19)
[2022-01-29] MEDS: MULTIVITAMIN/MINERALS 1 TAB PO SCH (08:38)
[2022-01-29] MEDS: TAMSULOSIN 0.4 MG CAP PO SCH (08:48)
[2022-01-29] MEDS: POLYETHYLENE GLYCOL 17 GM/PKT PO SCH (08:48)
[2022-01-29] MEDS: PANTOPRAZOLE 40 MG INJ VIAL IVP SCH ×3 (08:52→21:17)
--- NOTE | 2022-01-29 10:53 | NUR ---
SPOKE WITH MATTHEW FROM [facility] TO FOLLOW UP REGARDING US GUIDED THORACENTHESIS, STATED UPDATED COAGULATION STUDIES (PT, INR, PTT) IS NEEDED BEFORE PROCEEDING. DR GAMBINO MADE AWARE, ORDER MADE AND ACKNOWLEDGED.
[2022-01-29] MEDS: POTASSIUM CHLORIDE 10 MEQ TABER PO PRN (11:22)
--- NOTE | 2022-01-29 11:30 | NUR ---
K DUR GIVEN ORDERED FOR K 3.0 [id number]
[2022-01-29 12:00] VITALS: BP 121/66
[2022-01-29 12:28] LABS: PLATELET COUNT (AUTO) 288 K/uL (140-450)
[2022-01-29 12:30] LABS: PROTHROMBIN TIME 13.8 secs (10.8-13.4)
[2022-01-29 12:57] LABS: BASOPHILS % (AUTO) 0.3 % (0.0-2.0); HEMATOCRIT 37.6 % (36-52); HEMOGLOBIN 12.5 g/dL (12.0-18.0); LYMPHOCYTES # (AUTO) 0.8 K/uL (2.0-11.5); MEAN CORPUSCULAR HEMOGLOBIN 33 pg (27-31); MEAN CORPUSCULAR HGB CONC 33 g/dL (33-37); MEAN CORPUSCULAR VOLUME 99.4 fL (80-94); MONOCYTES # (AUTO) 1.1 K/uL (0.8-1.0); MONOCYTES % (AUTO) 9.7 % (1.7-9.3); NEUTROPHILS # (AUTO) 9.2 K/uL (1.8-7.7); RED BLOOD CELL COUNT(AUTO) 3.78 MIL/uL (4.20-6.10); RED CELL DISTRIBUTION WIDTH 16.7 % (11.6-13.7); WHITE BLOOD COUNT (AUTO) 11.1 K/uL (4.8-10.8)
[2022-01-29] MEDS: ONDANSETRON 4 MG/2 ML VIAL IVP PRN (13:31)
[2022-01-29] MEDS: bisacodyL 10 MG SUPP RC SCH ×2 (13:49→16:57)
--- NOTE | 2022-01-29 15:42 | NUR ---
PT HAS AN ORDER FOR PROTONIX 40MG IV BID, GIVEN ONE DOSE IN THE MORNING , THE 1300 DOSE HELD , IT IS TOO SOON DR NOTIFIED.[id number]
[2022-01-29 16:00] VITALS: BP 114/70
--- NOTE | 2022-01-29 16:22 | NUR ---
PT HAD VERY LOOSE STOLE X3. HELD DULCOLAX. ALSO 950 FLUID REMOVED DURING PARACENTESIS. [id number]
[2022-01-29] MEDS: ERYTHROMYCIN 100 MG in NACL 0.9% 100 ML IV SCH (17:58)
[2022-01-29] MEDS: VANCOMYCIN 750 MG in DEXTROSE 5% 250 ML IV SCH (18:00)
--- NOTE | 2022-01-29 19:25 | NUR ---
RECEIVED BEDSIDE ENDORSEMENT FROM AM NURSE. PATIENT IS WELL RESTED ON ROOM AIR IN BED WITH IVF BANANA BAG INFUSING AT 100 ML/HR. NO SOB NOTED. BREATHING EVEN UNLABORED. NO COMPLAINTS OF PAIN. AT BEDSIDE. SAFETY MEASURES IN PLACE. CALL LIGHT ON EASY REACH. WILL CONTINUE TO MONITOR PT. Addendum: 01/29/22 at 2242 by Lora Reina RN RN WRONG PATIENT
--- NOTE | 2022-01-29 19:30 | NUR ---
RECEIVED BEDSIDE ENDORSEMENT FROM AM NURSE. PATIENT IS RESTING COMFORTABLY IN BED ON HI FLOW O2 AT 6L TOLERATING WELL. NO S/S OF RESPIRATORY DISTRESS. BREATHING EVEN UNLABORED. PICC LINE ON THE RIGHT UPPER ARM WITH NO S/S OF INFECTION. LONG CATHETER DRAINING CLEAR YELLOW URINE. FLACC 0. ALL SAFETY PRECAUTIONS ARE IN PLACE. CALL LIGHT WITHIN REACH.
[2022-01-29 20:00] VITALS: BP 119/69
--- NOTE | 2022-01-29 20:06 | NUR ---
PT ON HFNC 40L, FIO2 80%. O2 SATS 90-92%. SEVERE CONGESTION. ONLY ABLE TO SX SCANT SECRETIONS. WILL CONT TO MONITOR.
--- NOTE | 2022-01-29 21:17 | NUR ---
ALL 2100 SCHEDULED MEDICATIONS ADMINISTERED PER MD ORDER.
[2022-01-29] MEDS: SENNA 8.6 MG TAB PO SCH (21:19)
[2022-01-30] VITALS: BP 141/100
[2022-01-30] MEDS: PIPERACILLIN/TAZOBACTAM 3.375 GM in DEXTROSE 5% 50 ML IV SCH ×5 (00:41→23:41)
[2022-01-30] MEDS: ERYTHROMYCIN 100 MG in NACL 0.9% 100 ML IV SCH ×4 (00:42→17:56)
[2022-01-30] MEDS: ALBUTEROL SULFATE/IPRATROPIU 3 ML SOL IH SCH ×3 (01:24→13:55)
[2022-01-30 04:00] VITALS: BP 113/73
[2022-01-30 06:15] LABS: ANION GAP 7.6 (8-16); CARBON DIOXIDE 39.3 mmol/L (21-32); CREATININE 1.1 mg/dL (0.6-1.3)
--- NOTE | 2022-01-30 06:15 | NUR ---
RECEIVED A CALL FROM [facility], REPORTING CRITICAL LAB VALUE POTASSIUM 2.9. NOTIFIED DR. GAMBINO WITH NEW ORDERS, CARRIED OUT.
[2022-01-30 06:18] LABS: POTASSIUM 2.9 mmol/L (3.5-5.1)
[2022-01-30 06:26] LABS: BASOPHILS % (AUTO) 0.3 % (0.0-2.0); EOSINOPHILS % (AUTO) 0.1 % (0.0-4.0); HEMATOCRIT 36.5 % (36-52); HEMOGLOBIN 12.1 g/dL (12.0-18.0); LYMPHOCYTES # (AUTO) 0.7 K/uL (2.0-11.5); LYMPHOCYTES % (AUTO) 8.1 % (20.5-51.1); MEAN CORPUSCULAR HEMOGLOBIN 33 pg (27-31); MEAN CORPUSCULAR HGB CONC 33 g/dL (33-37); MONOCYTES # (AUTO) 0.9 K/uL (0.8-1.0); MONOCYTES % (AUTO) 9.7 % (1.7-9.3); NEUTROPHILS # (AUTO) 7.4 K/uL (1.8-7.7); NEUTROPHILS % (AUTO) 81.8 % (42.2-75.2); PLATELET COUNT (AUTO) 229 K/uL (140-450); RED BLOOD CELL COUNT(AUTO) 3.65 MIL/uL (4.20-6.10); RED CELL DISTRIBUTION WIDTH 17.2 % (11.6-13.7)
[2022-01-30] MEDS ORDERED: LEVOTHYROXINE 0.025 MG TAB ONE (06:35)
[2022-01-30] MEDS ORDERED: LEVOTHYROXINE 0.1 MG TAB ONE (06:35)
[2022-01-30] MEDS: VANCOMYCIN 750 MG in DEXTROSE 5% 250 ML IV SCH ×2 (06:38→18:00)
[2022-01-30] MEDS: LEVOTHYROXINE 0.025 MG, LEVOTHYROXINE 0.1 MG PO SCH ×2 (06:40)
[2022-01-30] MEDS ORDERED: KCL 20 MEQ/WATER INJ PREMIX 200 ML IV SCH (07:25)
[2022-01-30] MEDS: BUDESONIDE 0.5 MG/2 ML NEBU INH SCH (07:30)
--- NOTE | 2022-01-30 07:30 | NUR ---
ENDORSED TO AM NURSE FOR CONTINUITY OF CARE. PT IS STABLE.
[2022-01-30 08:00] VITALS: BP 113/65
--- NOTE | 2022-01-30 08:00 | NUR ---
RECEIVED REPORT FROM CESILIA MAHONEY. PT AWAKE AND ALERT. NO SOB OR RESPIRATORY DISTRESS. ON HIGH FLOW NC. PT WITH NO FACIAL GRIMACE. RESTING COMFORTABLY. HOB ELEVATED. ON PUREED DIET. PICC GINGER DOUBLE LUMEN DRESSING C/D/I. R FINGER #[id number]. NEEDS ALL MET AT THIS TIME. SAFETY MEASURES IN PLACE. WILL CONTINUE TO MONITOR CLOSELY.
[2022-01-30] MEDS: POLYETHYLENE GLYCOL 17 GM/PKT PO SCH (08:29)
[2022-01-30] MEDS: bisacodyL 10 MG SUPP RC SCH (08:29)
[2022-01-30] MEDS: PANTOPRAZOLE 40 MG INJ VIAL IVP SCH ×2 (08:29→21:31)
[2022-01-30] MEDS: TAMSULOSIN 0.4 MG CAP PO SCH (08:29)
[2022-01-30] MEDS: DIVALPROEX SPRINKLES 125 MG CAPDR PO SCH ×2 (08:30→21:31)
[2022-01-30] MEDS: DOCUSATE 100 MG/10 ML UDC PO SCH ×2 (08:30→21:00)
[2022-01-30] MEDS: SENNA 8.6 MG TAB PO SCH ×2 (08:30→21:00)
[2022-01-30] MEDS: MULTIVITAMIN/MINERALS 1 TAB PO SCH (08:30)
--- NOTE | 2022-01-30 08:30 | NUR ---
CHEST XR AT BEDSIDE.
--- NOTE | 2022-01-30 08:30 | NUR ---
K RIDER GIVEN VIA IVPB.
[2022-01-30] MEDS: FUROSEMIDE 40 MG/4 ML VIAL IVP SCH (08:31)
--- NOTE | 2022-01-30 09:00 | NUR ---
PT ON HIGH FLOW 40L WITH FIO2 80%.
[2022-01-30 12:00] VITALS: BP 101/63
--- NOTE | 2022-01-30 14:00 | NUR ---
PT WITH 3 LOOSE STOOLS TODAY. PT CLEANED AND REPOSITIONED. O2 SATURATION @ 95% ON 40L FIO2 80%.
--- NOTE | 2022-01-30 14:08 | NUR ---
01/30/22 RD FOLLOW UP COMPLETED PLEASE REFER TO NUTRITION ASSESSMENT UNDER CARE ACTIVITY FOR ESTIMATED NUTRITIONAL NEEDS. 1. CONTINUE PUREE, NA2GM DIET TOLERATED -RECOMMEND ORAL SUPPLEMENTS IF PT PO INTAKE IS < 75% 2. MONITOR NUTRITION-RELATED LAB VALUES 3. RD TO FOLLOW-UP 7 DAYS, LOW RISK NELIA PLEITEZ RD
[2022-01-30 16:00] VITALS: BP 112/69
[2022-01-30] MEDS: ACETAMINOPHEN 325 MG TAB PO PRN (17:31)
--- NOTE | 2022-01-30 18:41 | NUR ---
PRN TYLENOL GIVEN. SEE EMAR. PT WITH HOB ELEVATED. ON 40L HIGH FLOW WITH FIOW 80%. O2 SATURATION @ 95%. IV ANTIBIOTICS INFUSING ON GINGER PICC. DRESSING C/D/I. NEEDS ALL MET AT THIS TIME. HOURLY ROUNDS CONDUCTED THROUGHOUT SHIFT. SAFETY MEASURES IN PLACE. WILL ENDORSE POC TO MARU CAMARGO.
[2022-01-30] MEDS: DEXTROSE 5% 1,000 ML IV SCH (19:07)
--- NOTE | 2022-01-30 19:18 | NUR ---
REPORT GIVEN TO NIGHTSHIFT RN FOR CONTINUITY OF CARE.
--- NOTE | 2022-01-30 19:34 | NUR ---
GET THE REPORT FROM MORNING NURSE ROMEL, PATIENT IS NON VERBLE , PATIENT IS RECEIVING 40 LITER OXYGEN WITH 80% FIO2, CALL LIGHT IS WITHIN THE REACH, WILL CONTINUE TO MONITOR PATIENT.
[2022-01-30 20:00] VITALS: BP 101/57
--- NOTE | 2022-01-30 20:30 | NUR ---
PATIENT IS LYING ON BED, VITAL SIGN IS WITHIN THE NORMAL RANGE, NO ANY COMPLAIN OF PAIN OR SHORTNESS OF BREATH AT THIS ANNIE, CALL LIGHT IS WITHIN THE REACH ,WILL CONTINUE TO MONITOR PATIENT.
--- NOTE | 2022-01-30 21:45 | NUR ---
PATIENT IS LYING ON BED, ALL SCHEDULE MEDICATION IS GIVEN PER DOCTOR ORDER, CALL LIGHT IS WITHIN THE REACH, WILL CONTINUE TO MONITOR PATIENT.
[2022-01-31] VITALS (7 sets, daily range): BP systolic 108–142; BP diastolic 48–95
--- NOTE | 2022-01-31 | NUR ---
PATIENT IS LYING ON BED, VITAL SIGN IS WITHIN THE NORMAL RANGE, ALL SCHEDULE MEDICATION IS GIVEN PER DOCTOR ORDER, CALL LIGHT IS WITHIN THE REACH, WILL CONTINUE TO MONITOR PATIENT.
--- NOTE | 2022-01-31 00:26 | NUR ---
PATIENT EKG SHOWS 2ND DEGREE BLOCK ,MOBITZ 2 , HEART RATE IS 56/M, NOTIFIED DOCTOR HILLARY GAMBINO , WAITING FOR DOCTOR TO RESPONSE, CALL LIGHT IS WITHIN THE REACH, WILL CONTINUE TO MONITOR PATIENT.
[2022-01-31] MEDS: ERYTHROMYCIN 100 MG in NACL 0.9% 100 ML IV SCH ×5 (00:30→23:42)
--- NOTE | 2022-01-31 02:31 | NUR ---
PATIENT IS LYING ON BED, NO ANY COMPLAIN OF PAIN OR SHORTNESS OF BREATH AT THIS TIME, VITAL SIGN IS TEMP: 99.0F,BP:-109/87, TN:100,RR: 24, SPIO2:95%. WILL CONTINUE TO MONITOR PATIENT.
--- NOTE | 2022-01-31 04:22 | NUR ---
PATIENT IS LYING ON BED, NO ANY COMPLAIN OF PAIN OR SHORTNESS OF BREATH AT THIS TIME, VITAL SIGN IS WITHIN THE NORMAL RANGE, CALL LIGHT IS WITHIN THE REACH, WILL CONTINUE TO MONITOR PATIENT.
--- NOTE | 2022-01-31 04:22 | NUR ---
PATIENT IS LYING ON BED, NO ANY COMPLAIN OF PAIN OR SHORTNESS OF BREATH AT THIS TIME, VITAL SIGN IS WITHIN THE NORMAL RANGE,CALL LIGHT IS WITHIN THE REACH, WILL CONTINUE TO MONITOR PATIENT.
[2022-01-31] MEDS: PIPERACILLIN/TAZOBACTAM 3.375 GM in DEXTROSE 5% 50 ML IV SCH ×4 (05:19→23:20)
[2022-01-31 05:30] LABS: BASOPHILS % (AUTO) 0.2 % (0.0-2.0); EOSINOPHILS # (AUTO) 0.2 K/uL (0-0.4); EOSINOPHILS % (AUTO) 1.5 % (0.0-4.0); HEMATOCRIT 31.2 % (36-52); HEMOGLOBIN 10.7 g/dL (12.0-18.0); LYMPHOCYTES # (AUTO) 0.9 K/uL (2.0-11.5); LYMPHOCYTES % (AUTO) 7.8 % (20.5-51.1); MEAN CORPUSCULAR HEMOGLOBIN 34 pg (27-31); MEAN CORPUSCULAR HGB CONC 34 g/dL (33-37); MEAN CORPUSCULAR VOLUME 99.7 fL (80-94); MONOCYTES # (AUTO) 0.9 K/uL (0.8-1.0); NEUTROPHILS # (AUTO) 9.6 K/uL (1.8-7.7); NEUTROPHILS % (AUTO) 82.5 % (42.2-75.2); PLATELET COUNT (AUTO) 186 K/uL (140-450); RED BLOOD CELL COUNT(AUTO) 3.13 MIL/uL (4.20-6.10); RED CELL DISTRIBUTION WIDTH 16.6 % (11.6-13.7); WHITE BLOOD COUNT (AUTO) 11.6 K/uL (4.8-10.8)
[2022-01-31 05:36] LABS: ALBUMIN 2.1 g/dL (3.4-5.0); ANION GAP 4.3 (8-16); CARBON DIOXIDE 39.5 mmol/L (21-32); CREATININE 0.9 mg/dL (0.6-1.3); MAGNESIUM 1.5 mg/dL (1.8-2.4); PHOSPHORUS 1.5 mg/dL (2.5-4.9); POTASSIUM 2.8 mmol/L (3.5-5.1); TOTAL BILIRUBIN 0.4 mg/dL (0.0-1.0)
--- NOTE | 2022-01-31 06:01 | NUR ---
PATIENT VANCOMYCIN TROUGH IS 15.2 , CALL [facility] TO ASK IF ITS OK TO GIVE MORNING DOSE, PHARMACY JOSE R SAID ITS OK TO ADMINISTER VANCOMYCIN, CALL LIGHT IS WITHIN THE REACH,WILL CONTINUE TO MONITOR PATIENT.
[2022-01-31] MEDS: VANCOMYCIN 750 MG in DEXTROSE 5% 250 ML IV SCH ×2 (06:05→18:19)
--- NOTE | 2022-01-31 06:14 | NUR ---
PATIENT IS LYING ON BED, ALL SCHEDULE MEDICATION IS GIVEN PER DOCTOR ORDER, CALL LIGHT IS WITHIN THE REACH, WILL CONTINUE TO MONITOR PATIENT.
[2022-01-31] MEDS ORDERED: LEVOTHYROXINE 0.025 MG TAB ONE (06:19)
[2022-01-31] MEDS ORDERED: LEVOTHYROXINE 0.1 MG TAB ONE (06:19)
[2022-01-31] MEDS: LEVOTHYROXINE 0.025 MG, LEVOTHYROXINE 0.1 MG PO SCH ×2 (06:21)
[2022-01-31] MEDS ORDERED: POTASSIUM PHOSPHATE 15 MM in NACL 0.9% 250 ML IV SCH ×2 (06:30→17:00)
[2022-01-31] MEDS ORDERED: KCL 20 MEQ/WATER INJ PREMIX 200 ML IV SCH (06:30)
[2022-01-31] MEDS ORDERED: MAG SULF 2000 MG/WATER PREMIX 50 ML IV SCH (06:30)
--- NOTE | 2022-01-31 06:47 | NUR ---
DOCTOR HILLARY GAMBINO REPLIED BACK WITH DELIVERY COORDINATOR CONSULT WITH DOCTOR DUGLAS GAMBINO, ORDER PLACED , AND MADE AWARE DOCTOR DUGLAS GAMBINO THAT HIS CONSULTING PATIENT, WILL CONTINUE TO MONITOR PATIENT.
[2022-01-31] MEDS: ALBUTEROL SULFATE/IPRATROPIU 3 ML SOL IH SCH ×3 (06:58→20:54)
[2022-01-31] MEDS: BUDESONIDE 0.5 MG/2 ML NEBU INH SCH ×2 (07:00→21:01)
--- NOTE | 2022-01-31 07:00 | NUR ---
RECEIVED PT ON HFNC 40L, 85%. COARSE BILATERALLY BUT SATURATION IS 95%. EQUAL CHEST RISE AND IN NO DISTRESS.
--- NOTE | 2022-01-31 07:23 | NUR ---
GAVE THE REPORT TO MORNING NURSE ROMEL FOR CONTINUOS OF CARE, PATIENT IS STABLE.
--- NOTE | 2022-01-31 08:00 | NUR ---
RECEIVED REPORT FROM NIGHTSHIFT RN. PT AWAKE AND NONVERBAL. ON 40L HIGH FLOW NC WITH 85% FIO2. O2 SATURATION @ 94%. HOB ELEVATED. VANCO INFUSING @ 165 ML/HR ON GINGER PICC. LONG VIA GRAVITY. NEEDS ALL MET AT THIS TIME. SAFETY MEASURES IN PLACE. WILL CONTINUE TO MONITOR CLOSELY.
[2022-01-31] MEDS: PANTOPRAZOLE 40 MG INJ VIAL IVP SCH ×2 (08:21→20:59)
[2022-01-31] MEDS: DIVALPROEX SPRINKLES 125 MG CAPDR PO SCH ×2 (08:22→21:01)
[2022-01-31] MEDS: TAMSULOSIN 0.4 MG CAP PO SCH (08:22)
[2022-01-31] MEDS: MULTIVITAMIN/MINERALS 1 TAB PO SCH (08:23)
[2022-01-31] MEDS: POTASSIUM CHLORIDE 10 MEQ TABER PO PRN (08:23)
--- NOTE | 2022-01-31 08:25 | NUR ---
KRIDER 20 MEQ GIVEN
--- NOTE | 2022-01-31 08:55 | NUR ---
CHEST XRAY COMPLETED AT BEDSIDE.
[2022-01-31] MEDS: bisacodyL 10 MG SUPP RC SCH (09:00)
[2022-01-31] MEDS: POLYETHYLENE GLYCOL 17 GM/PKT PO SCH (09:00)
[2022-01-31] MEDS: SENNA 8.6 MG TAB PO SCH ×2 (09:00→21:02)
[2022-01-31] MEDS: DOCUSATE 100 MG/10 ML UDC PO SCH ×2 (09:00→21:00)
--- NOTE | 2022-01-31 09:13 | NUR ---
MAGNESIUM SULFATE IVPB GIVEN VIA GINGER PICC LINE
[2022-01-31] MEDS: DEXTROSE 5% 1,000 ML IV SCH (13:57)
[2022-01-31 15:10] LABS: ANION GAP 6.2 (8-16); CARBON DIOXIDE 37.1 mmol/L (21-32); CREATININE 0.8 mg/dL (0.6-1.3); POTASSIUM 3.3 mmol/L (3.5-5.1)
--- NOTE | 2022-01-31 19:24 | NUR ---
RECEIVED REPORT FROM AM MARU RADFORD FOR CONTINUITY OF CARE. PT IS LYING IN BED AWAKE A&OX1. DENIES PAIN ON HIGH FLOW 40L FIO2 85%. GI INTACT. PT'S SKIN INTACT. PT IS BED BOUND.ATE 100% DINNER. ALL SAFETY MEASURERS IN PLACE. CALL LIGHT WITHIN REACH. WILL CONTINUE TO MONITOR.
--- NOTE | 2022-01-31 19:24 | NUR ---
REPORT GIVEN TO NIGHTSHIFT RN FOR CONTINUITY OF CARE. PT STABLE.
--- NOTE | 2022-01-31 22:30 | NUR ---
STATUS POST RESPIRATORY TX STILL ON HIGH FLOW 40L/MIN RT DECREASED FIO2 TO 75%. PT SLEEPING RR EVEN AND UNLABORED WITH EQUAL CHEST RISE.IVF RUNNING WITHOUT DIFFICULTY PER PUMP. ALL SAFETY MEASURES IN PLACE . WILL CONTINUE TO MONITOR.
[2022-02-01] VITALS: BP 104/70
--- NOTE | 2022-02-01 01:32 | NUR ---
FREQ ROUNDS. CHECKED PT IS ASLEEP EYES CLOSED. RR EVEN AND UNLABORED WITH EQUAL CHEST RISE. PT REMAINS ON HIGH FLOW O2 @40L/MIN FIO2 AT 75%. TOLERATING PARAMETERS WELL. TURNED AND REPOSITIONED Q2HRS. BED IN LOW AND LOCKED POSITION. CALL LIGHT WITHIN REACH. WILL CONTINUE TO MONITOR.
[2022-02-01] MEDS: ALBUTEROL SULFATE/IPRATROPIU 3 ML SOL IH SCH ×4 (02:05→19:58)
--- NOTE | 2022-02-01 03:50 | NUR ---
FREQ ROUNDS. PT REPOSITIONED ON RIGHT SIDE. INCONTINENT OF SMALL BM. LONG DRAINED 525CC CLEAR DK YELLOW URINE. SKIN INTACT USED SKIN PROTECTANT WIPES AND LOTION APPLIED. PT REMAINS ON HIGH FLOW O2 40L/MIN FIO2 AT 75%. PT QUIET NOW RESTING RR EVEN AND UNLABORED. ALL SAFETY MEASURES IN PLACE. WILL CONTINUE TO MONITOR.
[2022-02-01 04:00] VITALS: BP 119/74
[2022-02-01] MEDS: PIPERACILLIN/TAZOBACTAM 3.375 GM in DEXTROSE 5% 50 ML IV SCH ×4 (05:23→23:38)
[2022-02-01] MEDS: ERYTHROMYCIN 100 MG in NACL 0.9% 100 ML IV SCH ×3 (05:51→17:03)
[2022-02-01 06:06] LABS: ANION GAP 3.8 (8-16); BASOPHILS % (AUTO) 0.3 % (0.0-2.0); CARBON DIOXIDE 37.1 mmol/L (21-32); CREATININE 0.8 mg/dL (0.6-1.3); EOSINOPHILS # (AUTO) 0.2 K/uL (0-0.4); LYMPHOCYTES # (AUTO) 0.7 K/uL (2.0-11.5); LYMPHOCYTES % (AUTO) 8.6 % (20.5-51.1); MEAN CORPUSCULAR HEMOGLOBIN 34 pg (27-31); MEAN CORPUSCULAR HGB CONC 33 g/dL (33-37); MEAN CORPUSCULAR VOLUME 100.9 fL (80-94); MONOCYTES # (AUTO) 0.6 K/uL (0.8-1.0); MONOCYTES % (AUTO) 6.7 % (1.7-9.3); NEUTROPHILS % (AUTO) 82.4 % (42.2-75.2); PLATELET COUNT (AUTO) 121 K/uL (140-450); POTASSIUM 2.9 mmol/L (3.5-5.1); RED BLOOD CELL COUNT(AUTO) 2.97 MIL/uL (4.20-6.10); RED CELL DISTRIBUTION WIDTH 16.6 % (11.6-13.7); WHITE BLOOD COUNT (AUTO) 8.5 K/uL (4.8-10.8)
[2022-02-01 06:13] LABS: MAGNESIUM 1.7 mg/dL (1.8-2.4); PHOSPHORUS 1.9 mg/dL (2.5-4.9)
[2022-02-01] MEDS ORDERED: LEVOTHYROXINE 0.025 MG TAB ONE (06:36)
[2022-02-01] MEDS ORDERED: LEVOTHYROXINE 0.1 MG TAB ONE (06:36)
[2022-02-01] MEDS: LEVOTHYROXINE 0.025 MG, LEVOTHYROXINE 0.1 MG PO SCH ×2 (06:38)
--- NOTE | 2022-02-01 07:15 | NUR ---
ENDORSED PATENT TO NURSE MARU RAO FOR CONTINUITY OF CARE. PT IS STABLE. ALL NEEDS MET THROUGHOUT SHIFT.
[2022-02-01] MEDS: BUDESONIDE 0.5 MG/2 ML NEBU INH SCH ×2 (07:19→19:58)
--- NOTE | 2022-02-01 07:20 | NUR ---
RECEIVED REPORT FROM AIR BATTLE MANAGER NURSE FOR CONTINUITY OF CARE. PT AWAKE IN BED, ABLE TO REPITITIVELY RESPOND WITH "OKAY/FINE" TO SIMPLE QUESTIONS. CURRENTLY RECEIVING BREATHING TREATMENT. ON HIGHFLOW O2 AT 40L FIO2 60% FLACC O. GINGER MIDLINE 2 LUMEN WITH D5W AT 50CC/HR. LONG CATHETER INTACT AND PATENT DRAINING YELLOW URINE, SOME SEDIMENT NOTED. ALL SAFETY MEASURES IN PLACE.
[2022-02-01 08:00] VITALS: BP 124/70
[2022-02-01] MEDS: bisacodyL 10 MG SUPP RC SCH (09:00)
[2022-02-01] MEDS ORDERED: POTASSIUM PHOSPHATE 30 MM in NACL 0.9% 500 ML IV SCH (09:30)
[2022-02-01] MEDS: DIVALPROEX SPRINKLES 125 MG CAPDR PO SCH ×2 (09:41→20:30)
[2022-02-01] MEDS: SPIRONOLACTONE 25 MG TAB PO SCH (09:41)
[2022-02-01] MEDS: SENNA 8.6 MG TAB PO SCH ×2 (09:41→20:31)
[2022-02-01] MEDS: TAMSULOSIN 0.4 MG CAP PO SCH (09:41)
[2022-02-01] MEDS: MULTIVITAMIN/MINERALS 1 TAB PO SCH (09:41)
[2022-02-01] MEDS: POTASSIUM CHLORIDE 10 MEQ TABER PO PRN (09:42)
[2022-02-01] MEDS: POLYETHYLENE GLYCOL 17 GM/PKT PO SCH (09:50)
[2022-02-01] MEDS: DOCUSATE 100 MG/10 ML UDC PO SCH ×2 (09:50→20:32)
[2022-02-01] MEDS: PANTOPRAZOLE 40 MG INJ VIAL IVP SCH ×2 (09:53→20:28)
--- NOTE | 2022-02-01 10:00 | NUR ---
SCHEDULED AM MEDICATIONS GIVEN ORDERED
[2022-02-01] MEDS ORDERED: POTASSIUM CHLORIDE 40 MEQ, LIDOCAINE MPF 1% 25 MG in NACL 0.9% 250 ML IV ONE (10:10)
[2022-02-01] MEDS ORDERED: POTASSIUM CHLORIDE 10 MEQ TABER PO PRN (10:10)
[2022-02-01] MEDS ORDERED: MAG SULF 2000 MG/WATER PREMIX 50 ML IV PRN (10:10)
--- NOTE | 2022-02-01 10:15 | NUR ---
DULCOLAX NOT GIVEN, PT HAS LOOSE STOOL Addendum: 02/01/22 at 1024 by Jennie Candie Kathi RN HEPARIN NOT GIVEN, PT FOR THORACENTHESIS TODAY
[2022-02-01] MEDS: DEXTROSE 5% 1,000 ML IV SCH (11:18)
--- NOTE | 2022-02-01 11:35 | NUR ---
RADIOLOGIST (DR STERN) REVIEWED US OF CHEST RESULT AND STATED THERE'S NOT ENOUGH FLUID AND WON'T PERFORM THORACENTHESIS TODAY. LEFT MESSAGE TO DR MILNER (WOOL GROWER), DR NAQVI ALSO MADE AWARE.
[2022-02-01 12:00] VITALS: BP 124/64
[2022-02-01] MEDS ORDERED: POTASSIUM PHOSPHATE 15 MM in NACL 0.9% 250 ML IV ONE (13:20)
--- NOTE | 2022-02-01 15:18 | NUR ---
PT AWAKE IN BED. ON HIFLOW 40L, SATING AT 92-95% FLACC O. WILL CONTINUE TO MONITOR
[2022-02-01 15:51] LABS: ANION GAP 11.9 (8-16); CARBON DIOXIDE 29.8 mmol/L (21-32); CREATININE 0.7 mg/dL (0.6-1.3); POTASSIUM 3.7 mmol/L (3.5-5.1)
[2022-02-01 16:00] VITALS: BP 131/65
[2022-02-01] MEDS ORDERED: MAG SULF 2000 MG/WATER PREMIX 50 ML IV SCH (18:00)
--- NOTE | 2022-02-01 18:20 | NUR ---
DR CORDOBA WITH NEW ORDER TO DC ERYTHROMYCIN.
--- NOTE | 2022-02-01 19:25 | NUR ---
ENDORSED PT TO GAS WELDING MACHINE OPERATOR NURSE FOR CONTINUITY OF CARE.
[2022-02-01 20:00] VITALS: BP 136/88
[2022-02-02] VITALS (7 sets, daily range): BP systolic 111–137; BP diastolic 68–84
[2022-02-02] MEDS: ALBUTEROL SULFATE/IPRATROPIU 3 ML SOL IH SCH ×4 (01:43→19:50)
[2022-02-02] MEDS: PIPERACILLIN/TAZOBACTAM 3.375 GM in DEXTROSE 5% 50 ML IV SCH ×4 (05:13→23:45)
[2022-02-02 06:10] LABS: BASOPHILS % (AUTO) 0.5 % (0.0-2.0); EOSINOPHILS # (AUTO) 0.4 K/uL (0-0.4); EOSINOPHILS % (AUTO) 4.8 % (0.0-4.0); HEMATOCRIT 29.1 % (36-52); LYMPHOCYTES % (AUTO) 12.7 % (20.5-51.1); MEAN CORPUSCULAR HEMOGLOBIN 34 pg (27-31); MEAN CORPUSCULAR HGB CONC 34 g/dL (33-37); MONOCYTES # (AUTO) 0.5 K/uL (0.8-1.0); MONOCYTES % (AUTO) 6.5 % (1.7-9.3); NEUTROPHILS # (AUTO) 5.8 K/uL (1.8-7.7); NEUTROPHILS % (AUTO) 75.5 % (42.2-75.2); PLATELET COUNT (AUTO) 128 K/uL (140-450); RED BLOOD CELL COUNT(AUTO) 2.91 MIL/uL (4.20-6.10); RED CELL DISTRIBUTION WIDTH 16.7 % (11.6-13.7); WHITE BLOOD COUNT (AUTO) 7.7 K/uL (4.8-10.8)
[2022-02-02 06:16] LABS: CARBON DIOXIDE 37.1 mmol/L (21-32); CREATININE 0.8 mg/dL (0.6-1.3); POTASSIUM 3.1 mmol/L (3.5-5.1)
[2022-02-02] MEDS ORDERED: LEVOTHYROXINE 0.1 MG TAB ONE (06:38)
[2022-02-02] MEDS ORDERED: LEVOTHYROXINE 0.025 MG TAB ONE (06:38)
[2022-02-02] MEDS: LEVOTHYROXINE 0.025 MG, LEVOTHYROXINE 0.1 MG PO SCH ×2 (06:40)
[2022-02-02 06:50] LABS: MAGNESIUM 1.5 mg/dL (1.8-2.4); PHOSPHORUS 2.5 mg/dL (2.5-4.9)
--- NOTE | 2022-02-02 07:20 | NUR ---
RECEIVED REPORT FROM CLINICAL RESEARCHER NURSE FOR CONTINUITY OF CARE. PT AWAKE IN BED, ABLE TO VERBALIZE SIMPLE WORDS REPITITIVELY. ON HIFLOW O2 AT 40L WITH 60% FIO2 SATING AT 93-95% FLACC O. LONG CATHETER INTACT AND PATENT DRAINING YELLOW URINE, SOME SEDIMENT NOTED. GINGER MIDLINE DOUBLE LUMEN WITH D5W AT 40CC/HR. ALL SAFETY MEASURES IN PLACE.
[2022-02-02] MEDS: BUDESONIDE 0.5 MG/2 ML NEBU INH SCH ×2 (07:51→19:50)
--- NOTE | 2022-02-02 08:01 | NUR ---
PRN MAGNESIUM CURRENTLY BEING ADMINISTERED FOR MAGNESIUM LEVEL 1.5
[2022-02-02] MEDS: DIVALPROEX SPRINKLES 125 MG CAPDR PO SCH ×2 (09:00→22:39)
--- NOTE | 2022-02-02 09:00 | NUR ---
CLARIFIED WITH DR BANKS MACHINE OPERATOR CANE CUTTER REGARDING CURRENT ORDER OF MAGNESIUM SULFATE, MADE AWARE THAT PRN MAGNESIUM SULFATE 2G IS CURRENTLY BEING ADMINISTERED TO PT, MD TO CONTINUE CURRENT MAGNESIUM SULFATE TO GIVE TOTAL OF 4G TO PT.
[2022-02-02] MEDS: TAMSULOSIN 0.4 MG CAP PO SCH (09:01)
[2022-02-02] MEDS: PANTOPRAZOLE 40 MG INJ VIAL IVP SCH ×2 (09:01→22:38)
[2022-02-02] MEDS: DOCUSATE 100 MG/10 ML UDC PO SCH ×2 (09:01→22:38)
[2022-02-02] MEDS: SPIRONOLACTONE 25 MG TAB PO SCH (09:01)
[2022-02-02] MEDS: SENNA 8.6 MG TAB PO SCH ×2 (09:01→22:39)
[2022-02-02] MEDS: POLYETHYLENE GLYCOL 17 GM/PKT PO SCH (09:01)
[2022-02-02] MEDS: MULTIVITAMIN/MINERALS 1 TAB PO SCH (09:02)
--- NOTE | 2022-02-02 09:05 | NUR ---
SCHEDULED AM MEDICATIONS GIVEN ORDERED.
[2022-02-02] MEDS ORDERED: POTASSIUM CHL 20 MEQ / DEXT 5% 1,000 ML IV SCH (09:10)
[2022-02-02] MEDS: POTASSIUM CHLORIDE 10 MEQ TABER PO PRN (09:23)
[2022-02-02] MEDS: bisacodyL 10 MG SUPP RC SCH (09:44)
[2022-02-02] MEDS ORDERED: MAG SULF 2000 MG/WATER PREMIX 50 ML IV SCH ×2 (10:00→10:30)
--- NOTE | 2022-02-02 10:38 | NUR ---
RECEIVED CALL FROM DEANDRE BERNARD FROM [facility].
--- NOTE | 2022-02-02 15:30 | NUR ---
PT FOR TRANSFER TO [facility]. CALLED [facility] AND MADE AWARE OF TRANSFER. WILL CALL [facility] TO GIVE REPORT
--- NOTE | 2022-02-02 16:06 | NUR ---
CALLED [facility] AND GAVE REPORT TO QING MAHONEY, ALSO MADE AWARE OF MIDDLEWARE ENGINEER TIME OF 190
[2022-02-02] MEDS ORDERED: POTASSIUM CHLORIDE 20 MEQ in DEXTROSE 5% 1,000 ML IV SCH (18:15)
--- NOTE | 2022-02-02 19:15 | NUR ---
ENDORSED PT TO DEAF INTERPRETER NURSE, AWAITING CRYPTOLOGIC SUPERVISOR FOR TRANSFER TO [facility]
--- NOTE | 2022-02-02 19:16 | NUR ---
RECEIVED BEDSIDE REPORT FROM DAY SHIFT NURSE FOR CONTINUITY OF CARE. PT WILL BE TRANSFERRED TO [facility]. WAITING FOR TRANSPORTATION. PT IS ON STABLE CONDITION; AWAKE, ALERT AND RESPONSIVE.
--- NOTE | 2022-02-02 22:39 | NUR ---
WAITING FOR TRANSPORTATION, ALL NIGHT MEDICATIONS ADMINISTERED, WELL TOLERATED, NO ALLERGY OR SIDE REACTION.
--- NOTE | 2022-02-02 23:45 | NUR ---
WAITING FOR TRANSPORTATION. MIDNIGHT MEDICATION (ZOSYN) ADMINISTERED ORDERED, NO SIDE REACTION OR ALLERGY. PT IS ON STABLE CONDITION, RESPONSIVE ON STIMULI.
--- NOTE | 2022-02-03 00:15 | NUR ---
PT IS AWAKE, ALERT AND RESPONSIVE. NO SKIN PROBLEM. MIDLINE DOUBLE LUMENS ON RIGHT UPPER ARM INTACT AND PATENT, NO SIGN/SYMPTOM OF INFECTION. LONG CATHETER INTACT AND PATENT, URINE DRAINING FREELY INTO THE BAG. NO DEBRIS OR HEMATURIA. PATIENT TRANSPORTED TO [facility] BY [facility] ON AWAKE AND ALERT, ESCORTED BY 2 STAFF. PATIENT IS ON STABLE CONDITION, NO SOB OR DISTRESS.
== END 2022-02-03 00:15 | DRG 871 ==
LOC: MED 14:53 → MTU 16:23
PROVIDERS: ADMIT Preventive Medicine Preventive Medicine/Occupational Environmental Medicine; ATTEND Preventive Medicine Preventive Medicine/Occupational Environmental Medicine
PROC: 05HY33Z Insertion of Infusion Device into Upper Vein, Percutaneous Approach (ICD-10-PCS; 2022-01-28)
PROC: B54MZZA Ultrasonography of Right Upper Extremity Veins, Guidance (ICD-10-PCS; 2022-01-28)
PROC: 0W9B3ZZ Drainage of Left Pleural Cavity, Percutaneous Approach (ICD-10-PCS; principal; 2022-01-29)
PROC: 5A0935A Assistance with Respiratory Ventilation, Less than 24 Consecutive Hours, High Flow/Velocity Cannula (ICD-10-PCS; 2022-01-29)
PROC: 5A0935A Assistance with Respiratory Ventilation, Less than 24 Consecutive Hours, High Flow/Velocity Cannula (ICD-10-PCS; 2022-01-30)
PROC: 5A0935A Assistance with Respiratory Ventilation, Less than 24 Consecutive Hours, High Flow/Velocity Cannula (ICD-10-PCS; 2022-01-31)
PROC: 5A0935A Assistance with Respiratory Ventilation, Less than 24 Consecutive Hours, High Flow/Velocity Cannula (ICD-10-PCS; 2022-02-01)
PROC: 5A0935A Assistance with Respiratory Ventilation, Less than 24 Consecutive Hours, High Flow/Velocity Cannula (ICD-10-PCS; 2022-02-02)
DX: A41.51 Sepsis due to Escherichia coli [E. coli] (principal); J18.9 Pneumonia, unspecified organism; J96.01 Acute respiratory failure with hypoxia; E87.0 Hyperosmolality and hypernatremia; J90 Pleural effusion, not elsewhere classified; K21.9 Gastro-esophageal reflux disease without esophagitis; N40.1 Benign prostatic hyperplasia with lower urinary tract symptoms; N31.9 Neuromuscular dysfunction of bladder, unspecified; K59.00 Constipation, unspecified; E03.9 Hypothyroidism, unspecified; R33.9 Retention of urine, unspecified; E87.6 Hypokalemia; E83.42 Hypomagnesemia; E83.39 Other disorders of phosphorus metabolism; I44.1 Atrioventricular block, second degree; E66.09 Other obesity due to excess calories; R33.8 Other retention of urine; E83.119 Hemochromatosis, unspecified; Z20.822 Contact with and (suspected) exposure to COVID-19; D69.6 Thrombocytopenia, unspecified; D64.9 Anemia, unspecified; I11.0 Hypertensive heart disease with heart failure; I50.9 Heart failure, unspecified; Z68.33 Body mass index [BMI] 33.0-33.9, adult
CPT/HCPCS: 36415; 71045; 74018; 76604; 76705; 76770; 76942; 80048; 80053; 80202; 81001; 82728; 83540; 83605; 83735; 83880; 84100; 84484; 85025; 85610; 85651; 85730; 86140; 87040; 87070; 87081; 87086; 87205; 89220; 93005; 94640; 96365; 96366; 96367; 96375; 99291; C9113; J0696; J1364; J1644; J1940; J2001; J2060; J2405; J2543; J2930; J3370; J3475; J3480; J3490; J7030; J7060; J7070; J7626; Q0092

== ENCOUNTER 2022-04-09 09:22 | Emergency (ER) | payer OTHER, MEDICAID ==
[~2022-04-09] VITALS: Ht 182.9 cm; Wt 88.5 kg
--- NOTE | 2022-04-09 09:23 | NUR ---
PT TISH, SATISH, VIA GURNEY TO BED 10.
[2022-04-09] MEDS ORDERED: LORazepam 2 MG/ML VIAL ONE ×2 (09:24→09:27)
[2022-04-09 09:26] VITALS: BP 217/138
--- NOTE | 2022-04-09 09:28 | NUR ---
Keo SULLIVAN RCP AND Kamala LOCKHART RCP CALLED TO BEDSIDE ADMITTING DX: GENERALIZED WEAKNESS; POSSIBLE STROKE
[2022-04-09] MEDS ORDERED: LORazepam 2 MG/ML VIAL IVP ONE ×2 (09:30→13:15)
--- NOTE | 2022-04-09 09:30 | NUR ---
DIAGNOSTIC MONITORING SATURATION: 83%; LACED ON A NONREBREATHER AT 15 LPM WITH SATURATIO IMPROVING TO 95% Addendum: 04/09/22 at 1059 by MCACPA LACED = PLACED
--- NOTE | 2022-04-09 09:31 | NUR ---
BILATERAL AUSCULTATION: DECREASED APEX TO MID; DIMINISHED BASES; SHALLOW RESPIRATIONS; REVIEWED FOREMENTIONED WITH DR. MECHE CHAMBERS CONCURRENCE TO INTUBATE PATIENT
[2022-04-09] MEDS ORDERED: INTUBATION KIT MC ONE (09:32)
--- NOTE | 2022-04-09 09:39 | NUR ---
DR. MECHE CHAMBERS AT BEDSIDE; USING A GLIDESCOPE PATIENT WAS SUCCESSFULLY INTUBATED WITH AN ENDOTRACHEAL TUBE #7.5 SECURED AT 25cm MEDIAL/23cm LATERAL RIGHT AND LEFT WITH AN ANCHOR FAST CUFF INFLATED WITH 10ml AIR VIA 10ml SYRINGE PLACEMENT CONFIRMED WITH CO2 DETECTOR (YELLOW); AUCULTATION BY DR. MECHE CHAMBERS AND Kamala LOCKHART,HEAD GOLF COACH TO THE BILATERAL LUNG SALCEDO APEX TO MID AND ABDOMINAL/STOMACH REGION
--- NOTE | 2022-04-09 09:45 | NUR ---
TRANSFERRED TO RADILOGY FOR CAT SCAN HEAD W/O CONTRAST REMOVED FROM VENTILATOR PLACED ON SUPPLEMENTAL OXYGEN VIA E-TANK AT 15 LPM TO AMBU BAG/HME/INLINE SUCTION CATHETER/ENDOTRACHEAL TUBE; AMBU BAG COMPRESSION AGUILAR SIX SECONS SATURATION 97% HR 101 TOLERATED TRANSFER AND PROCEDURE WELL WITHOUT ANY COMPLICATIONS NOTED
--- NOTE | 2022-04-09 09:50 | NUR ---
ACCOMPANIED RT CEDEÑO AND CONSUMER SCIENCE TEACHERJUAN MIGUEL SKY FOR PATIENT CT SCAN, PATIENT ON PORTABLE LAY OUT WORKER.
[2022-04-09] MEDS ORDERED: PROPOFOL 1000 MG/100 ML PREMIX 100 ML IV ONE ×2 (09:52→11:05)
--- NOTE | 2022-04-09 10:00 | NUR ---
PER DR. CHAMBERS PATIENT TO BE EMERGENTLY INTUBATED, GIVEN VERBAL ORDER TO GIVE 30MG ETOMIDATE AND 120MG SUCCINYLCHOLINE. VERBAL ORDER TO START PROPOFOL AT 5MCG/KG/MIN.
--- NOTE | 2022-04-09 10:23 | NUR ---
TRANSFERRED PATIENT TO RADILOGY FOR CT SCAN OF HEAD/NECK ANGIO; REMOVED FROM VENTILATOR PLACED ON SUPPLEMENTAL OXYGEN VIA E-TANK AT 15 LPM TO AMBU BAG/HME/INLINE SUCTION CATHETER/ENDOTRACHEAL TUBE; AMBU BAG COMPRESSION AGUILAR SIX SECONDS WITH GOOD CHEST RISE; SATURATION 97% HR 96 TOLERATED TRANSFERS AND PROCEDURE WELL WITHOUT ADVERSE REACTIONS NOTED
--- NOTE | 2022-04-09 10:25 | NUR ---
ACCOMPANIED ELECTRIC MOTOR REPAIRING SUPERVISORJUAN MIGUEL FLEMING, RT DAVIDSON AND EMT OFELIA TO CT FOR CT ANGIO HEAD AND NECK, PATIENT ON BEDSIDE SLACK LINE YARDER.
[2022-04-09 10:34] LABS: BASOPHILS % (AUTO) 0.3 % (0.0-2.0); EOSINOPHILS % (AUTO) 0.6 % (0.0-4.0); HEMATOCRIT 36.6 % (36-52); HEMOGLOBIN 12.9 g/dL (12.0-18.0); LYMPHOCYTES # (AUTO) 0.5 K/uL (2.0-11.5); LYMPHOCYTES % (AUTO) 8.2 % (20.5-51.1); MEAN CORPUSCULAR HEMOGLOBIN 35 pg (27-31); MEAN CORPUSCULAR HGB CONC 35 g/dL (33-37); MEAN CORPUSCULAR VOLUME 97.9 fL (80-94); MONOCYTES # (AUTO) 0.3 K/uL (0.8-1.0); NEUTROPHILS # (AUTO) 5.5 K/uL (1.8-7.7); NEUTROPHILS % (AUTO) 86.9 % (42.2-75.2); PLATELET COUNT (AUTO) 177 K/uL (140-450); RED BLOOD CELL COUNT(AUTO) 3.73 MIL/uL (4.20-6.10); RED CELL DISTRIBUTION WIDTH 14.6 % (11.6-13.7); WHITE BLOOD COUNT (AUTO) 6.3 K/uL (4.8-10.8)
--- NOTE | 2022-04-09 10:40 | NUR ---
PT BACK FROM CT
[2022-04-09 10:45] LABS: PROTHROMBIN TIME 11.5 secs (10.8-13.4)
[2022-04-09 10:46] LABS: ACETAMINOPHEN < 0.5 ug/ml (10-30); SALICYLATE < 2.8 mg/dL (2.8-20.0)
[2022-04-09 10:54] LABS: ANION GAP 11.7 (8-16); ASPARTATE AMINOTRANSFERASE 27 U/L (15-37); CARBON DIOXIDE 26.2 mmol/L (21-32); CHLORIDE 101 mmol/L (98-107); CREATININE 0.7 mg/dL (0.6-1.3); GFR ARICAN-AMERICAN 147 mL/min (>90); GLUCOSE 125 mg/dL (74-106); POTASSIUM 3.9 mmol/L (3.5-5.1); SODIUM SERUM 135 mmol/L (136-145); TOTAL BILIRUBIN 0.3 mg/dL (0.0-1.0); UREA NITROGEN, BLOOD 8 mg/dL (7-18)
--- NOTE | 2022-04-09 11:00 | NUR ---
PT NOTED WITH EYES CLOSED, SEDATED ORDERED AND ON VENTILATOR WITH APPROPRIATE VENT SETTINGS. EQUAL RISE AND FALL OF CHEST WALL, NO SEIZURE ACTIVITY OBESERVED AT THIS TIME. SEIZURE PRECAUTIONS MAINTAINED IN PLACE, PT REMAINS ON BEDSIDE SPREADING MACHINE OPERATOR.
--- NOTE | 2022-04-09 11:04 | NUR ---
BENJY SWAB AND URINE SAMPLE COLLECTED AND WALKED TO LAB
[2022-04-09 11:11] LABS: APPEARANCE,URINE HAZY (CLEAR); BILIRUBIN,URINE NEGATIVE (NEGATIVE); BLOOD, URINE 1+ (NEGATIVE); COLOR,URINE YELLOW (YELLOW); LEUKOCYTE ESTERASE ,URINE 2+ (NEGATIVE); NITRITE, URINE NEGATIVE (NEGATIVE); UGLUCOSE NEGATIVE (NEGATIVE)
--- NOTE | 2022-04-09 11:15 | NUR ---
# 16 FR Joel catheter INSERTED utilizing sterile technique. Immediate return of 30 ml YELLOW, CLOUDY urine noted. Bedside drainage bag placed below level of bladder. Urine sample collected and sent to lab.
[2022-04-09 11:34] VITALS: BP 136/87
--- NOTE | 2022-04-09 11:34 | NUR ---
SEDATED RESTNG COMFORTABLY GOOD CHEST RISE ENDOTRACHEAL SUCTION FOR LARGE THIN PALE YELLOW SECERTIONS ORPHARYNGEAL SUCTION FOR COPIOUS THICK TO THIN CLEAR SECRETIONS AIRWAY PATENT SATURATION 100% ON FIO2 OF 80% PEEP 5cmH2O TITRATED FIO2 TO 65% ELIN/CHILD SUPPORT AGENT NOTIFIED
[2022-04-09 11:42] LABS: CALCIUM OXALATE CRYSTALS,UR None Seen /HPF (None Seen); COARSE GRANULAR CASTS,URINE None Seen /LPF (None Seen); FINE GRANULAR CASTS,URINE None Seen /LPF (None Seen); HYALINE CASTS, URINE None Seen /LPF (None Seen); OTHER CASTS, URINE None Seen /LPF (None Seen); OTHER CRYSTALS,URINE None Seen /HPF (None Seen); RED BLOOD CELL CASTS,URINE None Seen /LPF (None Seen); TRICHOMONAS,URINE None Seen /HPF (None Seen); TRIPLE PHOSPHATE CRYSTAL,UR None Seen /HPF (None Seen); URIC ACID CRYSTALS,URINE None Seen /HPF (None Seen); URINE AMORPHOUS URATE None Seen /HPF (None Seen); WAXY CASTS,URINE None Seen /LPF (None Seen); WBC,URINE 16-25 (MOD) /HPF (0-5); YEAST,URINE None Seen /HPF (None Seen)
[2022-04-09] MEDS: levETIRAcetam 2,000 MG in NACL 0.9% 100 ML IV SCH ×2 (11:49→12:49)
[2022-04-09] MEDS ORDERED: SUCCINYLCHOLINE CHLORIDE 200 MG/10 ML VIAL IVP ONE (13:15)
[2022-04-09] MEDS ORDERED: ETOMIDATE 20 MG/10 ML VIAL IVP ONE (13:15)
[2022-04-09] MEDS ORDERED: cefTRIAXone 1,000 MG VIAL ONE (13:46)
[2022-04-09 14:18] VITALS: BP 134/81
--- NOTE | 2022-04-09 14:18 | NUR ---
SEDATED RESTING WELL EQUAL CHEST RISE ENDOTRACHEAL SUCTION FOR LARGE THIN PALE YELLOW SECRETIONS OROPHARYBGEAL SUCTION FOR LARGE THIN CLEAR SECRTIONS AIRWAY PATENT SATURATION 100% ON FIO2 OF 65% PEEP 5cmH2O TITRATED FIO2 TO 50% TOYA/BENDING ROLL HAND NOTIFIED
[2022-04-09] MEDS ORDERED: ASPIRIN 325 MG TAB PO ONE (14:35)
[2022-04-09] MEDS ORDERED: NACL 0.9% 2,000 ML IV ONE (15:05)
--- NOTE | 2022-04-09 15:11 | NUR ---
DC PLANNING: PATIENTS MEDICAL DECISIONS ARE MADE BY THE [facility], Chrissy NEGRON IS THE CONTACT, HER CELL IS [phone]. THERE IS NO AFTER HOURS CONTACT, FOR EMERGENT DECISIONS MD'S CAN PROCEED WITH 2 MD SIGNATURE ON CONSENTS PER MIGDALIA. CMM WILL FOLLOW.
--- NOTE | 2022-04-09 15:25 | NUR ---
#14 FR NG tube placed to LEFT nare. Placement checked by auscultation of instilled air into stomach and aspiration of gastric contents. Tubing taped in place to prevent dislodging.
--- NOTE | 2022-04-09 15:43 | NUR ---
APPARATUS ENGINEERING TECHNOLOGIST BEDSIDE
--- NOTE | 2022-04-09 16:00 | NUR ---
PT NOTED WITH EYES CLOSED, SEDATED ORDERED AND ON VENTILATOR WITH APPROPRIATE VENT SETTINGS. EQUAL RISE AND FALL OF CHEST WALL, NO SEIZURE ACTIVITY OBESERVED AT THIS TIME. SEIZURE PRECAUTIONS MAINTAINED IN PLACE, PT REMAINS ON BEDSIDE MECHANICAL MAINTENANCE.
[2022-04-09] MEDS ORDERED: ASPIRIN 81 MG TAB.CHEW PO ONE ×2 (16:05)
[2022-04-09] MEDS ORDERED: ASPIRIN 81 MG TAB.CHEW PO SCH (16:21)
[2022-04-09] MEDS ORDERED: CRUSHER, PILL MC ONE (16:23)
--- NOTE | 2022-04-09 17:30 | NUR ---
800CC OF YELLOW CLOUDY URINE EMPTIED FROM PATIENTS LONG BAG
--- NOTE | 2022-04-09 17:30 | NUR ---
PER DR. GANDHI PATIENT NOT REQUIRING CENTRAL LINE PLACEMENT AT THIS TIME.
--- NOTE | 2022-04-09 18:15 | NUR ---
WITH THE ASSISTANCE OF OFELIA, EMT PATIENT REPOSITIONED IN BED, ON BEDSIDE BRAZING FURNACE FEEDER.
--- NOTE | 2022-04-09 19:10 | NUR ---
PATIENT APPEARING TO WAKE UP AND RESIST VENT, PROPOFOL TITRATED UP TO 15 MCG/KG/MIN ORDERED.
--- NOTE | 2022-04-09 19:20 | NUR ---
Pt report given to MARU GARCIA. Transfer of care at this time.
--- NOTE | 2022-04-09 19:26 | NUR ---
PT HAS EYES CLOSED, SEDATED AND ON VENTILATOR. EQUAL RISE AND FALL OF CHEST WALL. NO SEIZURE ACTIVITY OBESERVED AT THIS TIME. SEIZURE PRECAUTIONS MAINTAINED. PT ON SCREW MACHINE OPERATOR SINGLE SPINDLE.
--- NOTE | 2022-04-09 20:58 | NUR ---
PT'S RASS SCORE MAINTAINED AT -3. EQUAL RISE AND FALL OF CHEST WALL. PT REACTS TO NOXIOUS STIMULUS. ALL NEEDS MET AT THIS TIME. SEIZURE PRECAUTIONS MAINTAINED. PT ON WOOD CUTTER. BED LOCKED IN LOWEST POSITION,SIDE RAILS X2 FOR SAFETY.
[2022-04-09] MEDS ORDERED: NACL 0.9% IV ONE (21:00)
[2022-04-09] MEDS ORDERED: LEVETIRACETAM IV ONE (21:00)
[2022-04-09 21:26] VITALS: BP 95/57
--- NOTE | 2022-04-09 22:20 | NUR ---
PT'S RASS SCORE MAINTAINED AT -3. EQUAL RISE AND FALL OF CHEST WALL. PT REACTS TO NOXIOUS STIMULUS. ALL NEEDS MET AT THIS TIME. SEIZURE PRECAUTIONS MAINTAINED. PT ON FORGING MACHINE OPERATOR. BED LOCKED IN LOWEST POSITION,SIDE RAILS X2 FOR SAFETY.
--- NOTE | 2022-04-09 23:35 | NUR ---
PT COVERED WITH WARM BLANKET.
--- NOTE | 2022-04-10 01:08 | NUR ---
PT'S RASS SCORE MAINTAINED AT -3. EQUAL RISE AND FALL OF CHEST WALL. PT REACTS TO NOXIOUS STIMULUS. ALL NEEDS MET AT THIS TIME. SEIZURE PRECAUTIONS MAINTAINED. PT ON PROFESSOR OF THEATRE. BED LOCKED IN LOWEST POSITION,SIDE RAILS X2 FOR SAFETY.
[2022-04-10 01:15] VITALS: BP 98/63
--- NOTE | 2022-04-10 03:37 | NUR ---
PT'S RASS SCORE MAINTAINED AT -3. EQUAL RISE AND FALL OF CHEST WALL. PT REACTS TO NOXIOUS STIMULUS. ALL NEEDS MET AT THIS TIME. SEIZURE PRECAUTIONS MAINTAINED. PT ON EXPERIENTIAL THERAPIST. BED LOCKED IN LOWEST POSITION,SIDE RAILS X2 FOR SAFETY.
[2022-04-10 04:43] VITALS: BP 97/56
[2022-04-10] MEDS ORDERED: PROPOFOL 200 MG/20 ML VIAL IV ONE (05:00)
--- NOTE | 2022-04-10 05:15 | NUR ---
PT'S DIAPER CHANGED, PT HAD A BM, LOOSE AND BROWN. PT'S SHEETS CHANGED. NEW WARM BLANKET PROVIDED.
[2022-04-10] MEDS ORDERED: PROPOFOL 1000 MG/100 ML PREMIX 100 ML IV ONE (05:35)
--- NOTE | 2022-04-10 06:08 | NUR ---
F/C EMPTIED AT 1400 CC OF KACEY URINE
[2022-04-10 07:00] VITALS: BP 127/64
--- NOTE | 2022-04-10 07:13 | NUR ---
Pt report given to albin ch. Transfer of care at this time.
[2022-04-10] MEDS ORDERED: ASPIRIN 81 MG TAB.CHEW NG ONE (07:30)
[2022-04-10] MEDS ORDERED: levETIRAcetam 100 MG/ML VIAL IV ONE (07:37)
[2022-04-10] MEDS ORDERED: CRUSHER, PILL MC ONE (07:43)
[2022-04-10] MEDS ORDERED: levETIRAcetam 1,000 MG in NACL 0.9% 100 ML IV SCH (09:00)
[2022-04-10 09:16] LABS: BASOPHILS % (AUTO) 0.6 % (0.0-2.0); EOSINOPHILS # (AUTO) 0.2 K/uL (0-0.4); EOSINOPHILS % (AUTO) 4.2 % (0.0-4.0); HEMATOCRIT 35.7 % (36-52); HEMOGLOBIN 12.6 g/dL (12.0-18.0); LYMPHOCYTES # (AUTO) 0.9 K/uL (2.0-11.5); LYMPHOCYTES % (AUTO) 16.5 % (20.5-51.1); MEAN CORPUSCULAR HEMOGLOBIN 35 pg (27-31); MEAN CORPUSCULAR HGB CONC 35 g/dL (33-37); MEAN CORPUSCULAR VOLUME 98.7 fL (80-94); MONOCYTES # (AUTO) 0.4 K/uL (0.8-1.0); MONOCYTES % (AUTO) 6.3 % (1.7-9.3); NEUTROPHILS # (AUTO) 4.1 K/uL (1.8-7.7); NEUTROPHILS % (AUTO) 72.4 % (42.2-75.2); PLATELET COUNT (AUTO) 115 K/uL (140-450); RED BLOOD CELL COUNT(AUTO) 3.62 MIL/uL (4.20-6.10); RED CELL DISTRIBUTION WIDTH 14.9 % (11.6-13.7); WHITE BLOOD COUNT (AUTO) 5.6 K/uL (4.8-10.8)
--- NOTE | 2022-04-10 09:45 | NUR ---
propofol held at this time per luis key, bp currently at 87/57.
[2022-04-10 10:00] LABS: ALBUMIN 2.4 g/dL (3.4-5.0); CARBON DIOXIDE 21.5 mmol/L (21-32); POTASSIUM 3.2 mmol/L (3.5-5.1)
--- NOTE | 2022-04-10 10:00 | NUR ---
propofol restarted at 14mcg. 119/45 bp at this time 80 pulse
[2022-04-10 10:04] LABS: ANION GAP 14.7 (8-16)
[2022-04-10 10:05] LABS: CREATININE 0.6 mg/dL (0.6-1.3); TOTAL BILIRUBIN 0.5 mg/dL (0.0-1.0)
--- NOTE | 2022-04-10 10:58 | NUR ---
update given to jeanna ([facility] administration) [phone], requesting a call back at time of transfer for higher level of care
[2022-04-10 11:45] VITALS: BP 95/56
--- NOTE | 2022-04-10 12:36 | NUR ---
rd 608 here for transport, gave report to ruiz modi at this time.
--- NOTE | 2022-04-10 12:45 | NUR ---
Patient to be transferred to [facility]. Is being transferred due to Seizures, higher level of care. Receiving facility has accepting physician and available space. ER physician has signed transfer form. Patient or responsible constitution party has agreed to transfer and signed form. Patient belongings inventoried and will be sent with patient. Copy of nursing notes, lab reports, EKG, Physicians Orders and X-rays to be sent with patient. Report given to ruiz talamantes with [facility] transport, called 2 twice for report to [facility], no response. [facility] ambulance service has been called for transfer. ETA is 1300.
[2022-04-10 12:48] VITALS: BP 95/56
== END 2022-04-09 12:45 | disposition short-term general hospital (02) ==
LOC: MED 09:22
DX: G40.901 Epilepsy, unspecified, not intractable, with status epilepticus (principal); Z20.822 Contact with and (suspected) exposure to COVID-19; J80 Acute respiratory distress syndrome; N39.0 Urinary tract infection, site not specified; J96.00 Acute respiratory failure, unspecified whether with hypoxia or hypercapnia; I10 Essential (primary) hypertension; E03.9 Hypothyroidism, unspecified; Z99.11 Dependence on respirator [ventilator] status; Z90.49 Acquired absence of other specified parts of digestive tract; Z79.899 Other long term (current) drug therapy
CPT/HCPCS: 31500; 36415; 70450; 70496; 70498; 71045; 80053; 81001; 82140; 83605; 83690; 83880; 84484; 85025; 85610; 85730; 86886; 86900; 86901; 87040; 87070; 87086; 87205; 87426; 89220; 93005; 96361; 96365; 96367; 96375; 96376; 99291; G0480; J0696; J1953; J2060; J2704; J7030; Q0092; Q9967

== ENCOUNTER 2022-04-25 20:42 | Inpatient (IN) | payer OTHER, MEDICAID ==
[~2022-04-25] VITALS: Ht 182.9 cm; Wt 81.7 kg
[~2022-04-25 20:42] MED LIST changes: +BRIM5SOL2; -BRIM5SOL2 OP; -MERO1VIA15 IV
--- NOTE | 2022-04-25 20:42 | NUR ---
PT TISH ALS. TAKEN TO BED 10
--- NOTE | 2022-04-25 20:47 | NUR ---
Dr. Oleary examining patient.
--- NOTE | 2022-04-25 20:52 | NUR ---
CXR at bedside.
--- NOTE | 2022-04-25 21:00 | NUR ---
PT BIBA FOR RESP DISTRESS FROM BOARD AND CARE, REPORT GIVEN BY EMS, EMS STATED PT WAS 84% O2 ON ARRIVAL BUT WAS WORKING TO BREATH, HX-CEREBRAL PALSY, PT NON VERBAL, PT PLACED ON GROUNDSKEEPING MAINTENANCE WORKER, MD AT BEDSIDE, 02 95% VIA 2L N/C. LONG CATHETER IN PLACE PRIOR TO ARRIVAL WITH 400ML DARK CLOUDY URINE.
[2022-04-25] MEDS ORDERED: LACTATED RINGERS 1,000 ML IV ONE ×2 (21:15)
[2022-04-25] MEDS ORDERED: CEFEPIME 1,000 MG in DEXTROSE 5% 50 ML IV ONE (21:15)
[2022-04-25 21:24] LABS: BASOPHILS % (AUTO) 0.4 % (0.0-2.0); HEMATOCRIT 39.9 % (36-52); HEMOGLOBIN 13.9 g/dL (12.0-18.0); LYMPHOCYTES # (AUTO) 1.1 K/uL (2.0-11.5); LYMPHOCYTES % (AUTO) 10.6 % (20.5-51.1); MEAN CORPUSCULAR HEMOGLOBIN 35 pg (27-31); MEAN CORPUSCULAR HGB CONC 35 g/dL (33-37); MEAN CORPUSCULAR VOLUME 98.8 fL (80-94); MONOCYTES # (AUTO) 1.5 K/uL (0.8-1.0); MONOCYTES % (AUTO) 13.6 % (1.7-9.3); NEUTROPHILS % (AUTO) 75.4 % (42.2-75.2); PLATELET COUNT (AUTO) 176 K/uL (140-450); RED BLOOD CELL COUNT(AUTO) 4.03 MIL/uL (4.20-6.10); RED CELL DISTRIBUTION WIDTH 15.2 % (11.6-13.7); WHITE BLOOD COUNT (AUTO) 10.6 K/uL (4.8-10.8)
--- NOTE | 2022-04-25 22:00 | NUR ---
16 FR LONG CATHETER DISCONTINUED, PT TOLERATED WELL. # 16 FR Long catheter with 10 ml utilizing sterile technique. Immediate return of 150 ml DARK YELLOW CLOUDY urine noted. Bedside drainage bag placed below level of bladder. Urine sample collected and sent to lab. Pt tolerated procedure WELL.
[2022-04-25 22:08] LABS: ALBUMIN 2.9 g/dL (3.4-5.0); ANION GAP 16.3 (8-16); CARBON DIOXIDE 27.5 mmol/L (21-32); TOTAL BILIRUBIN 1.3 mg/dL (0.0-1.0)
[2022-04-25 22:11] LABS: POTASSIUM 2.8 mmol/L (3.5-5.1)
[2022-04-25] MEDS ORDERED: CEFEPIME 1,000 MG VIAL ONE (22:19)
[2022-04-25 22:42] LABS: BILIRUBIN,URINE NEGATIVE (NEGATIVE); BLOOD, URINE 2+ (NEGATIVE); COLOR,URINE ORANGE (YELLOW); LEUKOCYTE ESTERASE ,URINE 2+ (NEGATIVE); NITRITE, URINE POSITIVE (NEGATIVE); UGLUCOSE NEGATIVE (NEGATIVE)
[2022-04-25 22:47] LABS: RBC,URINE >20 (MANY) /HPF (0-5); WBC,URINE >25 (MANY) /HPF (0-5); YEAST,URINE Few /HPF (None Seen)
[2022-04-25 22:48] LABS: APPEARANCE,URINE CLOUDY (CLEAR)
[2022-04-25] MEDS ORDERED: MAG SULF 2000 MG/WATER PREMIX 50 ML IV ONE (23:20)
[2022-04-25] MEDS ORDERED: KCL 20 MEQ/WATER INJ PREMIX 200 ML IV ONE (23:20)
[2022-04-25] MEDS ORDERED: DEXT 5% / NACL 0.45% 1,000 ML IV ONE (23:35)
[2022-04-26] VITALS (11 sets, daily range): BP systolic 106–135; BP diastolic 70–93
--- NOTE | 2022-04-26 01:30 | NUR ---
RECEIVED PT. FROM ER AT 01:05 AND REPORT GIVEN BY MARU OLVERA. PT. AWAKE, WHEN ASKED QUESTIONS, HE MOANS OR SHAKES HEAD. MOUTH OPENS AT ALL TIMES. ON NASAL CANULA 2L WITH O2 SAT 95%. IV INSERTED AT ER, RIGHT JUGULAR PERIPHERAL LINE 20G AND RIGHT FOOT IV 18G. STARTED IVF PER MD ORDERED AND MEDICATIONS IVPB GIVEN ORDERED, PLS. SEE AMAR. SINUS TACHYCARDIA IN THE MONITOR AND MD AWARE. PT. SKIN INTACT. LUNG SOUNDS RONCHI. SUCTION GREENISH CREAMY THICK SECRETIONS VIA MOUTH. ABDOMEN WITH HYPOACTIVE BOWEL SOUNDS. GT WITH ABDOMINAL BINDER, DUE TO PT. TRYING TO PULL OUT GT. LONG CATHETER INSERTED IN ER, PATENT AND INTACT WITH CLEAR, KACEY COLOR URINE. RENDERED PERSONAL HYGIENE, LUKASZ CARE. REPOSITIONED AND PROVIDED CALM ENVIRONMENT. BEDLOCK AND PLACED IN THE LWOEST HEIGHT. NO S/S OF PAIN NOTED. WILL CONT. TO MONITOR.
--- NOTE | 2022-04-26 01:40 | NUR ---
Admited to ICU. Will go to room 5. Belongings list completed. Report to SHAI MAHONEY. PT TRANSFERED WITH RN AND TELE MONITOR AN PROCESS MOLD TECHNICIAN.
--- NOTE | 2022-04-26 06:24 | NUR ---
PATIENT HAS BEEN SCREENED AND CATEGORIZED HIGH NUTRITION RISK. PATIENT WILL BE SEEN WITHIN 1-2 DAYS OF ADMISSION. /05/[address]
[2022-04-26] MEDS ORDERED: PEG OP PRN (06:35)
[2022-04-26] MEDS ORDERED: GLYCERIN OP PRN (06:35)
[2022-04-26] MEDS ORDERED: ACETAMINOPHEN 325 MG TAB PO SCH (06:35)
[2022-04-26] MEDS ORDERED: HYPROMELLOSE OP PRN (06:35)
[2022-04-26] MEDS ORDERED: HYDROcodone/APAP 5/325 MG 1 TAB TAB PO PRN (06:40)
[2022-04-26] MEDS ORDERED: ONDANSETRON 4 MG/2 ML VIAL IVP PRN (06:40)
[2022-04-26] MEDS ORDERED: LORazepam 2 MG/ML VIAL IVP PRN (06:40)
[2022-04-26] MEDS ORDERED: ACETAMINOPHEN 325 MG TAB PO PRN ×2 (06:40→09:55)
[2022-04-26] MEDS: ALBUTEROL 0.083% 2.5 MG/3 ML NEBU INH SCH ×2 (07:00→20:15)
[2022-04-26] MEDS: IPRATROPIUM 0.02% 0.5 MG/2.5 ML NEBU INH SCH ×2 (07:00→20:15)
[2022-04-26] MEDS: TAMSULOSIN 0.4 MG CAP PO SCH (08:47)
[2022-04-26] MEDS: MULTIVITAMIN/MINERALS 1 TAB PO SCH (08:47)
[2022-04-26] MEDS: bisacodyL 10 MG SUPP RC SCH (08:47)
[2022-04-26] MEDS: DIVALPROEX 500 MG TABEC PO SCH ×2 (08:47→21:00)
[2022-04-26] MEDS: CEFEPIME 1,000 MG in DEXTROSE 5% 50 ML IV SCH ×2 (08:49→20:46)
[2022-04-26] MEDS: LORazepam 1 MG TAB PO SCH ×3 (08:49→17:00)
[2022-04-26] MEDS ORDERED: CARBAMIDE PEROXIDE 6.5% OT 15 ML BTL OT SCH (09:00)
[2022-04-26] MEDS ORDERED: BRIMONIDINE TARTRATE 0.2% OP 5 ML BTL OP SCH (09:00)
[2022-04-26] MEDS ORDERED: NON-FORMULARY ITEM (Multivit,Tx,Iron/Calcm/FA/Mins (Thera-M Caplet) 1 TAB) PO SCH (09:00)
[2022-04-26] MEDS ORDERED: TIMOLOL OP 0.5% 5 ML BTL OP SCH (09:00)
[2022-04-26] MEDS ORDERED: NON-FORMULARY ITEM (Omeprazole 20 MG) PO SCH (09:00)
[2022-04-26] MEDS ORDERED: METHENAMINE HIPPURATE PO SCH (09:00)
[2022-04-26] MEDS: POLYETHYLENE GLYCOL 17 GM/PKT PO SCH (09:00)
[2022-04-26] MEDS ORDERED: LANSOPRAZOLE 30 MG CAPDR GT SCH (09:00)
[2022-04-26] MEDS ORDERED: DOCUSATE SODIUM 100 MG GELCAP PO SCH (09:00)
[2022-04-26 09:37] LABS: BASOPHILS % (AUTO) 0.5 % (0.0-2.0); EOSINOPHILS % (AUTO) 0.1 % (0.0-4.0); HEMATOCRIT 39.7 % (36-52); HEMOGLOBIN 13.7 g/dL (12.0-18.0); LYMPHOCYTES # (AUTO) 1.1 K/uL (2.0-11.5); LYMPHOCYTES % (AUTO) 11.4 % (20.5-51.1); MEAN CORPUSCULAR HEMOGLOBIN 34 pg (27-31); MEAN CORPUSCULAR HGB CONC 35 g/dL (33-37); MEAN CORPUSCULAR VOLUME 98.9 fL (80-94); MONOCYTES # (AUTO) 1.1 K/uL (0.8-1.0); NEUTROPHILS # (AUTO) 7.2 K/uL (1.8-7.7); PLATELET COUNT (AUTO) 161 K/uL (140-450); RED BLOOD CELL COUNT(AUTO) 4.01 MIL/uL (4.20-6.10); RED CELL DISTRIBUTION WIDTH 15.2 % (11.6-13.7); WHITE BLOOD COUNT (AUTO) 9.4 K/uL (4.8-10.8)
[2022-04-26 09:39] LABS: ANION GAP 11.9 (8-16); CARBON DIOXIDE 28.6 mmol/L (21-32); CREATININE 0.7 mg/dL (0.6-1.3); POTASSIUM 3.5 mmol/L (3.5-5.1)
--- NOTE | 2022-04-26 12:27 | NUR ---
04/26/22 RD INITIAL ASSESSMENT COMPLETED PLEASE REFER TO NUTRITION ASSESSMENT UNDER CARE ACTIVITY FOR ESTIMATED NUTRITIONAL NEEDS. 1. CONTINUE PUREE, LOW SODIUM DIET WITH NECTAR THICK LIQUIDS TOLERATED 2. MONITOR PO INTAKE -IF LOW, RECOMMEND SWALLOW EVAL 3. MONITOR NUTRITION-RELATED LAB VALUES 4. IF PT REQUIRES TUBE FEEDING, RECOMMEND GLUCERNA 1.2 @ 60 ML/HR WITH PROSOURCE BID -FWF: 200 ML Q4H OR PER MD -START AT 20 ML/HR AND INCREASE BY 20 ML Q4H TOLERATED -WILL PROVIDE > 90% ESTIMATED KCAL AND 100% ESTIMATED PROTEIN NEEDS 5. RD TO FOLLOW-UP 2-3 DAYS, HIGH RISK NELIA PLEITEZ RD
[2022-04-26] MEDS ORDERED: VANCOMYCIN PER PHARMACY MC PRN (12:35)
--- NOTE | 2022-04-26 13:54 | NUR ---
DC PLANN[age] YRS OLD MALE PATIENT WAS ADMITTED FROM [facility] WITH A DX OF RESP FAILURE AND SEPTIC. PATIENT HAS A HX OF DEVELOPMENTAL DELAY, S/P G-TUBE PLACEMENT HTN, HYPOTHYROIDISM, SEIZURE AND UTI . CXR SHOWED PNEUMONIA. RAPID COVID TEST NEGATIVE. ADMINISTERED IVF, IV ABX CEFEPIME AND CONTINUED HOME MEDS. CONSULTED WITH ARACELI AND ID. DC PLAN TO RETURN TO [facility] WHEN STABLE. CM TO FOLLOW. Addendum: 04/30/22 at 1545 by Kenia Retana RN DC PLANNING: PATIENT HAS AN ORDER TO GO TO SNF FOR IV ABX CALLED PATIENT'S CADDYMASTER SRI RIOS STATED PREFERED TO SEND HIM TO [facility] . CALLED [facility] SPOKE WITH HAL SANCHES TO ADMIT HIM AND CAN GO TO ROOM 44 # TO GIVE REPORT [phone] PER HAL WILL ARRANGE TRANSPORT AND PALLET RECTIFIER TIME BETWEEN 6:30 PM TO 7 PM NOTIFIED AINSLEY MAHONEY. CALLED [facility] [phone] UNABLE TO LEAVE MESSAGE VOICE MAIL IS FULL. CM TO FOLLOW Addendum: 04/30/22 at 1642 by Kenia Retana RN DC PLANNING: ARRANGED TRANSPORT WITH [facility] GOING TO [facility] PALLET RECTIFIER TIME 6:30 PM NOTIFIED AINSLEY MAHONEY.
[2022-04-26] MEDS: DEXT 5% / NACL 0.45% 1,000 ML IV SCH (15:24)
[2022-04-26] MEDS: VANCOMYCIN 750 MG in DEXTROSE 5% 250 ML IV SCH (15:25)
[2022-04-26] MEDS ORDERED: ACETAMINOPHEN 650 MG SUPP RC PRN (16:15)
--- NOTE | 2022-04-26 19:11 | NUR ---
PT WAS SEEN FOR DYSPHAGIA. PT WAS POCKETING AND POR EBONI MOTOR CONTROL DUE. PT IS HIGH RISK OF ASPIRATION FOR ANY PO TRIALS. RECOMMENDATION NOTHING BY MOUTH
--- NOTE | 2022-04-26 19:30 | NUR ---
RECEIVED ENDORSEMENT FOR PATIENT FROM DAY SHIFT (CONNIE Crowley RN) PATIENT CURRENTLY DOING BEDSIDE SWALLOW EVAL WITH ST. HAS PERIPHERAL IV ACCESS ON RIGHT FOOT, AND HAS 20G RIGHT EXTERNAL JUGULAR PATIENT HAS GTUBE AND IS CURRENTLY ON SUPPLEMENTAL OXYGEN 8L VIA MASK. PATIENT IS ABLE TO ANSWER SIMPLE YES AND NO QUESTIONS, AND IS ABLE TO MOVE ALL EXTREMITIES.
[2022-04-26] MEDS: DOCUSATE 100 MG/10 ML UDC GT SCH (21:00)
[2022-04-26] MEDS ORDERED: MAGNESIUM HYDROXIDE 2400 MG/30 ML UDC PO PRN (21:00)
--- NOTE | 2022-04-26 21:00 | NUR ---
ALL MEDICATIONS ADMINISTERED PER MD ORDERS
[2022-04-27] VITALS (11 sets, daily range): BP systolic 96–123; BP diastolic 56–92
[2022-04-27] MEDS: ALBUTEROL SULFATE/IPRATROPIU 3 ML SOL IH SCH ×4 (00:36→19:22)
--- NOTE | 2022-04-27 01:59 | NUR ---
RECEIVED CALL FROM ALFREDA IN THE LAB; PRELIMINARY BLOOD CULTURE RESULTS ARE POSITIVE. SAMPLE TO BE SENT TO NATAL[facility] FOR FINAL REVIEW AND REPORT.
[2022-04-27] MEDS: VANCOMYCIN 750 MG in DEXTROSE 5% 250 ML IV SCH ×2 (02:15→18:20)
--- NOTE | 2022-04-27 02:55 | NUR ---
PATIENT VOMITED X1; DARK GREEN WITH CHUNKS OF FOOD. ADMINISTERED ZOFRAN 4MG PER MD ORDERS
[2022-04-27] MEDS ORDERED: LEVOTHYROXINE 0.075 MG TAB PO SCH (06:30)
[2022-04-27] MEDS: LANSOPRAZOLE 30 MG CAPDR GT SCH (06:41)
[2022-04-27 06:42] LABS: BASOPHILS % (AUTO) 0.4 % (0.0-2.0); EOSINOPHILS # (AUTO) 0.1 K/uL (0-0.4); EOSINOPHILS % (AUTO) 0.8 % (0.0-4.0); HEMATOCRIT 36.2 % (36-52); HEMOGLOBIN 12.6 g/dL (12.0-18.0); LYMPHOCYTES # (AUTO) 0.9 K/uL (2.0-11.5); LYMPHOCYTES % (AUTO) 11.6 % (20.5-51.1); MEAN CORPUSCULAR HEMOGLOBIN 34 pg (27-31); MEAN CORPUSCULAR HGB CONC 35 g/dL (33-37); MEAN CORPUSCULAR VOLUME 98.6 fL (80-94); MONOCYTES # (AUTO) 0.7 K/uL (0.8-1.0); MONOCYTES % (AUTO) 8.9 % (1.7-9.3); NEUTROPHILS # (AUTO) 6.3 K/uL (1.8-7.7); NEUTROPHILS % (AUTO) 78.3 % (42.2-75.2); PLATELET COUNT (AUTO) 148 K/uL (140-450); RED BLOOD CELL COUNT(AUTO) 3.67 MIL/uL (4.20-6.10); RED CELL DISTRIBUTION WIDTH 15.3 % (11.6-13.7)
[2022-04-27 06:54] LABS: ALBUMIN 2.5 g/dL (3.4-5.0); ANION GAP 9.8 (8-16); CREATININE 0.9 mg/dL (0.6-1.3); MAGNESIUM 1.7 mg/dL (1.8-2.4); PHOSPHORUS 2.9 mg/dL (2.5-4.9); POTASSIUM 3.8 mmol/L (3.5-5.1); TOTAL BILIRUBIN 0.6 mg/dL (0.0-1.0)
[2022-04-27] MEDS: DEXT 5% / NACL 0.45% 1,000 ML IV SCH (06:55)
--- NOTE | 2022-04-27 07:13 | NUR ---
CARE OF PATIENT ENDORSED TO DAY SHIFT (NOVEMBER PLali, RN)
--- NOTE | 2022-04-27 07:15 | NUR ---
RECEIVED REPORT FROM MARU DUNBAR.
[2022-04-27] MEDS: CEFEPIME 1,000 MG in DEXTROSE 5% 50 ML IV SCH ×3 (07:58→22:12)
--- NOTE | 2022-04-27 08:30 | NUR ---
PATIENT AROUSES TO NAME. ORIENTED TO NAME. VERBALIZES AND REPETITIVE WORDS. DOES NOT FOLLOW COMMANDS. HEART SOUNDS REGULAR. MONITOR [id number]. PERIPHERAL PULSES PALPABLE BILAT. NO EDEMA NOTED. O2 AT 8L WITH SIMPLE MASK. SAO2 98-100%. ANTERIOR/LUNG SOUNDS WITH CRACKLES AT BILATERAL BASES. #20G RIGHT NECK. #18G IN LEFT FOOT. ABDOMEN SOFT. HYPOACTIVE BOWEL SOUNDS. G-TUBE IN PLACE. FLUSHES EASILY. LONG IN PLACE WITH DARK YELLOW URINE.
[2022-04-27] MEDS ORDERED: ACETAMINOPHEN 650 MG/20.3 ML UDC GT PRN (08:35)
[2022-04-27] MEDS: LORazepam 1 MG TAB PO SCH (08:39)
[2022-04-27] MEDS: DOCUSATE 100 MG/10 ML UDC GT SCH ×2 (08:39→20:47)
[2022-04-27] MEDS: DIVALPROEX SPRINKLES 125 MG CAPDR GT SCH ×2 (08:45→20:48)
[2022-04-27] MEDS: MULTIVITAMIN/MINERALS 1 TAB PO SCH (09:00)
[2022-04-27] MEDS: TAMSULOSIN 0.4 MG CAP PO SCH (09:00)
[2022-04-27] MEDS: POLYETHYLENE GLYCOL 17 GM/PKT PO SCH (09:00)
--- NOTE | 2022-04-27 09:45 | NUR ---
CAREGIVER HERE TO SEE PATIENT AND BROUGHT COPIES OF DISCHARGE PAPERWORK FROM [facility]. STATED PATIENT FAILED SWALLOW EVALUATION X3 AT [place] AND RESULTED IN G-TUBE PLACEMENT. PATIENT CURRENTLY NPO.
[2022-04-27] MEDS ORDERED: HYDROcodone/APAP 5/325 MG 1 TAB TAB GT PRN (11:00)
[2022-04-27] MEDS ORDERED: MAGNESIUM HYDROXIDE 2400 MG/30 ML UDC GT PRN (11:00)
--- NOTE | 2022-04-27 11:10 | NUR ---
DR. GAMBINO HERE TO SEE PATIENT. UPDATED ON NEED FOR MED CHANGE TO GIVE PER GT AND TUBE FEEDING. ORDERS RECEIVED. RECEIVED ADDITIONAL ORDER FOR MIDLINE CATHETER PLACEMENT.
[2022-04-27] MEDS ORDERED: MAG SULF 2000 MG/WATER PREMIX 50 ML IV ONE (11:15)
--- NOTE | 2022-04-27 11:15 | NUR ---
DR PLEITEZ HERE TO SEE AND UPDATED ON STATUS. ORDER RECEIVED FOR MAGNESIUM REPLACEMENT.
[2022-04-27] MEDS ORDERED: MAG SULF 2000 MG/WATER PREMIX 50 ML IV SCH (11:30)
[2022-04-27] MEDS: LACTATED RINGERS 1,000 ML IV SCH (12:15)
--- NOTE | 2022-04-27 12:30 | NUR ---
TEMP 100.6 AXILLARY. TYLENOL 650MG GIVEN. IVF CHANGED TO LR AT 50CC/HR.
[2022-04-27] MEDS: LORazepam 1 MG TAB GT SCH ×2 (12:40→17:00)
--- NOTE | 2022-04-27 14:00 | NUR ---
VANCOMYCIN TROUGH PENDING. PHARMACIST REQUESTED TO HOLD 1400 DOSE UNTIL TROUGH RECEIVED.
[2022-04-27] MEDS ORDERED: CARBOXYMETHYLCELLULOSE OP PRN (14:15)
--- NOTE | 2022-04-27 15:40 | NUR ---
TRANSFERRED PATIENT VIA BED TO [facility]. REPORT GIVEN TO DORY SOLORZANO RN. INFORMED NURSE THAT 1400 DOSE OF VANCO IS PENDING VANCOMYCIN TROUGH AND NEEDED TO BE GIVEN. MIDLINE CATHETER CONSENT OBTAINED FROM CONSERVATOR. CONSENT DOCUMENT ATTACHED TO HOSPITAL CONSENT FORM. ALSO INFORMED THE CHARGE NURSE.
--- NOTE | 2022-04-27 16:30 | NUR ---
PT TRANSFERRED FROM ICU BED 5 TO 113A. ATTACHED PULSE OX TO PT. SATURATION WAS 98% ON 8L SIMPLE MASK. NEW NEB SET UP IS HANGING ON FLOWMETER. PT SATURATION WILL DROP IF NOT ON MASK.
--- NOTE | 2022-04-27 18:40 | NUR ---
AT 1820 HOURS, THE PHARMACIST CALLED WITH THE VANCO TROUGH RESULT AND ORDER TO GIVE THE DOSE DUE AT 1400HOURS AND THAT THE NEXT DOSE WILL BE DUE AT 0200 HOURS OF 04/28/2022. SAME STARTED . PATIENT CONTINUED TO REST IN BED. NO CHANGE IN CONDITION. TEMP AT 1600 HOURS READ 98.0. REPORT WILL BE GIVEN TO THE ON COMING STAFF FOR A CONTINUOUS EXPERT CARE.
--- NOTE | 2022-04-27 19:30 | NUR ---
RECEIVED REPORT FROM DAY SHIFT RN FOR CONTINUITY OF CARE. PT IS SLEEPING IN BED. PT HAS FC DRAINING CLEAR YELLOW URINE. IS ON SIMPLE FACE MASK ON 8L. PT IS ON TUBE FEEDING. PT IS ON GLUCERNA 60 CC/HR WITH WATER FLUSH 200 Q4H. PT HAS RIGHT NECK 20 GAUGE AND LEFT FOOT 18 GAUGE. PT IS ON LR 50 CC/HR ON LEFT FOOT. BED AT THE LOWEST POSITION. HEAD OF BED RAISED. WILL CONTINUE TO MONITOR THE PT.
[2022-04-27] MEDS: BRIMONIDINE TARTRATE 0.2% OP 5 ML BTL LEFT EYE SCH (20:49)
[2022-04-27] MEDS: TIMOLOL OP 0.5% 5 ML BTL LEFT EYE SCH (20:49)
--- NOTE | 2022-04-27 21:01 | NUR ---
SCHEDULE MEDS GIVEN EXCEPT MERREM. PT IV ON LEFT FOOT IS REMOVED WITH CATHETER INTACT. IV ON RIGHT NECK IS SPILLING THE NS WHEN FLUSHED. NOT ABLE TO GIVE AT THIS TIME. Addendum: 04/27/22 at 2215 by Lior Arteaga RN MAXIPIME. NOT MERREM
--- NOTE | 2022-04-27 22:13 | NUR ---
NEW IV INSERTED ON RIGHT FOOT 24 GAUGE. PATENT AND INTACT. SCHEDULE MERREM GIVEN. Addendum: 04/27/22 at 2214 by Lior Arteaga RN MAXIPIME GIVEN. NOT MERREM
--- NOTE | 2022-04-27 22:14 | NUR ---
MAXIPIME. NOT MERREM
[2022-04-28] VITALS: BP 121/76
--- NOTE | 2022-04-28 00:48 | NUR ---
PT WAS CLEANED AND CHANGED. TOLERATED IT WELL. PT HAD LOOSE STOOL. WILL CONTINUE TO MONITOR THE PT.
[2022-04-28] MEDS: ALBUTEROL SULFATE/IPRATROPIU 3 ML SOL IH SCH ×4 (01:11→20:12)
[2022-04-28] MEDS: VANCOMYCIN 750 MG in DEXTROSE 5% 250 ML IV SCH ×2 (02:58→14:23)
--- NOTE | 2022-04-28 02:59 | NUR ---
SCHEDULE ABX GIVE. NO ADVERSE REACTION NOTED. WILL CONTINUE TO MONITOR THE PT.
[2022-04-28 04:00] VITALS: BP 102/63
--- NOTE | 2022-04-28 05:39 | NUR ---
PT WAS CLEANED AND CHANGED. PT TOLERATED CHANGING WELL. PT SATING 97%. WILL CONTINUE TO MONITOR THE PT.
[2022-04-28] MEDS: LANSOPRAZOLE 30 MG CAPDR GT SCH (05:41)
[2022-04-28] MEDS: LEVOTHYROXINE 0.075 MG TAB GT SCH (05:42)
[2022-04-28] MEDS: LACTATED RINGERS 1,000 ML IV SCH (07:00)
--- NOTE | 2022-04-28 07:25 | NUR ---
ENDORSED PT TO DAY SHIFT RN FOR CONTINUITY OF CARE. PT IS STABLE.
[2022-04-28 07:34] LABS: ANION GAP 10.5 (8-16); BASOPHILS % (AUTO) 0.2 % (0.0-2.0); CREATININE 0.7 mg/dL (0.6-1.3); EOSINOPHILS # (AUTO) 0.1 K/uL (0-0.4); HEMATOCRIT 32.5 % (36-52); HEMOGLOBIN 11.2 g/dL (12.0-18.0); LYMPHOCYTES # (AUTO) 0.5 K/uL (2.0-11.5); LYMPHOCYTES % (AUTO) 7.5 % (20.5-51.1); MEAN CORPUSCULAR HEMOGLOBIN 34 pg (27-31); MEAN CORPUSCULAR HGB CONC 35 g/dL (33-37); MEAN CORPUSCULAR VOLUME 98.8 fL (80-94); MONOCYTES # (AUTO) 0.5 K/uL (0.8-1.0); MONOCYTES % (AUTO) 6.8 % (1.7-9.3); NEUTROPHILS # (AUTO) 5.8 K/uL (1.8-7.7); NEUTROPHILS % (AUTO) 84.5 % (42.2-75.2); PLATELET COUNT (AUTO) 116 K/uL (140-450); POTASSIUM 3.5 mmol/L (3.5-5.1); RED BLOOD CELL COUNT(AUTO) 3.29 MIL/uL (4.20-6.10); RED CELL DISTRIBUTION WIDTH 14.9 % (11.6-13.7); WHITE BLOOD COUNT (AUTO) 6.9 K/uL (4.8-10.8)
--- NOTE | 2022-04-28 07:35 | NUR ---
RECEIVED ON SUPPLEMENTAL OXYGEN AT 8 LPM VIA SIMPLE MASK SATURATION 97% POST HHN THERAPY CHANGED OXYGEN DEVICE TO 6 LPM VIA NC WITH HUMIDIFIER HIDE CURER TO MONITOR
[2022-04-28 08:00] VITALS: BP 110/66
[2022-04-28] MEDS: CEFEPIME 1,000 MG in DEXTROSE 5% 50 ML IV SCH ×2 (09:00→21:29)
[2022-04-28] MEDS: BRIMONIDINE TARTRATE 0.2% OP 5 ML BTL LEFT EYE SCH ×2 (09:00→21:30)
[2022-04-28] MEDS: TIMOLOL OP 0.5% 5 ML BTL LEFT EYE SCH ×2 (09:00→21:30)
[2022-04-28] MEDS: DIVALPROEX SPRINKLES 125 MG CAPDR GT SCH ×2 (10:07→21:29)
[2022-04-28] MEDS: FINASTERIDE 5 MG TAB GT SCH (10:08)
[2022-04-28] MEDS: MULTIVITAMIN/MINERALS 1 TAB GT SCH (10:09)
[2022-04-28] MEDS: LORazepam 1 MG TAB GT SCH ×3 (10:09→17:13)
[2022-04-28] MEDS: POLYETHYLENE GLYCOL 17 GM/PKT GT SCH (10:10)
[2022-04-28] MEDS: DOCUSATE 100 MG/10 ML UDC GT SCH ×2 (10:10→21:29)
[2022-04-28 12:00] VITALS: BP 130/73
--- NOTE | 2022-04-28 13:42 | NUR ---
STABLE RESTING COMFORTABLY SATURATION 100% ON HUMIDIFIED SUPPLEMENTAL OXYGEN AT 6 LM VIA NC NASOTRACHEAL SUCTION REQUIRED AT THIS TIME SUPPLEMENTAL OXYGEN PROVIDED THROUGHOUT PROCEDURE USING A STERILE TECHNIQUE APPLIED [place] LUBRICANT TO THE DISTAL END OA 14FR SUCTION CATHETER INSERTED CATHETER THROUGH LEFT NASAL CAVITY X 2 PLUS ORAL PHARYNGEAL SUCTION OBTAINED LARGE THICK YELLOW SECRETIONS AIRWAY PATENT POST HHN THERAPY TITRATED FIO2 TO 3 LPM
[2022-04-28 16:00] VITALS: BP 124/71
--- NOTE | 2022-04-28 19:56 | NUR ---
PATIENT IS NOW ON OXYGEN VIA NASAL CANULA AT 3 LITER AND SATING WELL. PATIENT HAD A CALM SHIFT. DUE MEDICATION AND CARE WERE GIVEN. NO CHANGE IN CONDITION. REPORT WAS GIVEN TO THE ONCOMING STAFF FOR A CONTINUOUS EXPERT CARE.
--- NOTE | 2022-04-28 19:57 | NUR ---
RECEIVED REPORT FROM DAY SHIFT RN FOR CONTINUITY OF CARE. PT IS SLEEPING IN BED. PT HAS FC DRAINING CLEAR YELLOW URINE. NC 2L. PT IS ON TUBE FEEDING. PT IS ON GLUCERNA 60 CC/HR WITH WATER FLUSH 200 Q4H. PT HAS RIGHT FOOT 23 GAUGE. PT IS ON LR 50 CC/HR. BED AT THE LOWEST POSITION. HEAD OF BED RAISED. WILL CONTINUE TO MONITOR THE PT.
[2022-04-28 20:00] VITALS: BP 112/74
--- NOTE | 2022-04-28 21:40 | NUR ---
SCHEDULE MEDS GIVE. NO ADVERSE REACTION NOTED. WILL CONTINUE TO MONITOR THE PT.
[2022-04-29] VITALS: BP 133/68
--- NOTE | 2022-04-29 00:24 | NUR ---
PICC LINE NURSE IS HERE TO INSERT MIDLINE ON PT. ALL SUPPLIES GATHERED.
[2022-04-29] MEDS: ALBUTEROL SULFATE/IPRATROPIU 3 ML SOL IH SCH ×4 (00:31→19:43)
[2022-04-29] MEDS: VANCOMYCIN 750 MG in DEXTROSE 5% 250 ML IV SCH ×2 (02:20→14:06)
--- NOTE | 2022-04-29 03:19 | NUR ---
PT WAS CLEANED AND CHANGED. TOLERATED IT WELL.
[2022-04-29 04:00] VITALS: BP 109/70
[2022-04-29] MEDS: LEVOTHYROXINE 0.075 MG TAB GT SCH (05:47)
[2022-04-29] MEDS: LANSOPRAZOLE 30 MG CAPDR GT SCH (05:47)
[2022-04-29 06:53] LABS: BASOPHILS % (AUTO) 0.2 % (0.0-2.0); EOSINOPHILS # (AUTO) 0.1 K/uL (0-0.4); EOSINOPHILS % (AUTO) 2.1 % (0.0-4.0); HEMATOCRIT 33.5 % (36-52); HEMOGLOBIN 11.6 g/dL (12.0-18.0); LYMPHOCYTES # (AUTO) 0.6 K/uL (2.0-11.5); MEAN CORPUSCULAR HEMOGLOBIN 34 pg (27-31); MEAN CORPUSCULAR HGB CONC 35 g/dL (33-37); MEAN CORPUSCULAR VOLUME 99.3 fL (80-94); MONOCYTES # (AUTO) 0.3 K/uL (0.8-1.0); MONOCYTES % (AUTO) 5.1 % (1.7-9.3); NEUTROPHILS # (AUTO) 5.7 K/uL (1.8-7.7); PLATELET COUNT (AUTO) 129 K/uL (140-450); RED BLOOD CELL COUNT(AUTO) 3.37 MIL/uL (4.20-6.10); RED CELL DISTRIBUTION WIDTH 14.6 % (11.6-13.7); WHITE BLOOD COUNT (AUTO) 6.8 K/uL (4.8-10.8)
--- NOTE | 2022-04-29 07:37 | NUR ---
ENDORSED PT TO DAY SHIFT RN FOR CONTINUITY OF CARE. PT IS STABLE.
[2022-04-29 07:41] LABS: LYMPHOCYTES % (AUTO) 8.5 % (20.5-51.1); NEUTROPHILS % (AUTO) 84.1 % (42.2-75.2)
[2022-04-29 08:00] VITALS: BP 116/71
[2022-04-29 08:02] LABS: ANION GAP 11.7 (8-16); CARBON DIOXIDE 29.4 mmol/L (21-32); CREATININE 0.6 mg/dL (0.6-1.3); POTASSIUM 3.1 mmol/L (3.5-5.1)
[2022-04-29] MEDS: DIVALPROEX SPRINKLES 125 MG CAPDR GT SCH ×2 (09:00→20:21)
[2022-04-29] MEDS: bisacodyL 10 MG SUPP RC SCH (09:40)
[2022-04-29] MEDS: MULTIVITAMIN/MINERALS 1 TAB GT SCH (09:40)
[2022-04-29] MEDS: FINASTERIDE 5 MG TAB GT SCH (09:40)
[2022-04-29] MEDS: TIMOLOL OP 0.5% 5 ML BTL LEFT EYE SCH ×2 (09:41→20:22)
[2022-04-29] MEDS: DOCUSATE 100 MG/10 ML UDC GT SCH ×2 (09:41→20:22)
[2022-04-29] MEDS: LORazepam 1 MG TAB GT SCH ×3 (09:41→17:49)
[2022-04-29] MEDS: POLYETHYLENE GLYCOL 17 GM/PKT GT SCH (09:42)
[2022-04-29] MEDS: CEFEPIME 1,000 MG in DEXTROSE 5% 50 ML IV SCH ×2 (09:43→20:22)
[2022-04-29] MEDS: ENOXAPARIN 40 MG/0.4 ML SYR SUBQ SCH (09:49)
[2022-04-29] MEDS: BRIMONIDINE TARTRATE 0.2% OP 5 ML BTL LEFT EYE SCH ×2 (09:50→20:22)
[2022-04-29 12:00] VITALS: BP 128/73
[2022-04-29] MEDS ORDERED: POTASSIUM CHLORIDE 20% 40 MEQ/15 ML UDC GT ONE (12:25)
[2022-04-29] MEDS ORDERED: POTASSIUM CHLORIDE 20% 40 MEQ/15 ML UDC GT SCH ×2 (14:04→14:24)
[2022-04-29 16:01] VITALS: BP 116/71
--- NOTE | 2022-04-29 16:46 | NUR ---
04/29/22 RD FOLLOW UP COMPLETED. PLEASE REFER TO NUTRITION ASSESSMENT UNDER CARE ACTIVITY FOR ESTIMATED NUTRITIONAL NEEDS. 1.CONTINUE GLUCERNA 1.2 @60ML/HR -FWF 200 Q4H; -PROSOURCE BID 2.MONITOR FOR GASTRIC RESIDUAL 3.RD TO FOLLOW-UP IN 2-3 DAYS PATIENT IS HIGH RISK. VICKI ALEXANDER RD
[2022-04-29 20:00] VITALS: BP 126/69
--- NOTE | 2022-04-29 20:37 | NUR ---
SCHEDULE MEDS GIVEN. NO ADVERSE REACTION NOTED. PT WAS CLEANED AND CHANGED WELL. NO COMPLAINS FROM THE PT. WILL CONTINUE TO MONITOR THE PT.
--- NOTE | 2022-04-29 20:37 | NUR ---
RECEIVED REPORT FROM DAY SHIFT RN FOR CONTINUITY OF CARE. PT IS SLEEPING IN BED. PT HAS FC DRAINING CLEAR YELLOW URINE. NC 2L. PT IS ON TUBE FEEDING. PT IS ON GLUCERNA 60 CC/HR WITH WATER FLUSH 200 Q4H. PT HAS RIGHT FOOT 22 GAUGE. PT HAS GINGER MIDLINE WELL. SALINE LOCK. BED AT THE LOWEST POSITION. HEAD OF BED RAISED. WILL CONTINUE TO MONITOR THE PT. Addendum: 04/29/22 at 2038 by Lior Arteaga RN 1929 REPORT FROM DAY SHIFT RN.
[2022-04-30] VITALS: BP 121/68
[2022-04-30] MEDS: VANCOMYCIN 750 MG in DEXTROSE 5% 250 ML IV SCH ×2 (02:06→13:08)
--- NOTE | 2022-04-30 02:10 | NUR ---
SCHEDULE MEDICATION GIVEN. NO ADVERSE REACTION NOTED. WILL CONTINUE TO MONITOR THE PT.
[2022-04-30] MEDS: ALBUTEROL SULFATE/IPRATROPIU 3 ML SOL IH SCH ×4 (03:20→19:02)
--- NOTE | 2022-04-30 03:57 | NUR ---
PT OBSERVED. PT IS AWAKE. PT NOT IN ANY ACUTE DISTRESS. BREATHING EVEN AND UNLABORED. CALL LIGHT WITHIN REACH.
[2022-04-30 04:00] VITALS: BP 128/69
[2022-04-30] MEDS: LANSOPRAZOLE 30 MG CAPDR GT SCH (05:32)
[2022-04-30] MEDS: LEVOTHYROXINE 0.075 MG TAB GT SCH (05:32)
--- NOTE | 2022-04-30 05:44 | NUR ---
SCHEDULE MEDS GIVEN. NO ADVERSE REACTION NOTED. WILL CONTINUE TO MONITOR THE PT.
[2022-04-30 07:08] LABS: ANION GAP 9.2 (8-16); CARBON DIOXIDE 32.2 mmol/L (21-32); CREATININE 0.5 mg/dL (0.6-1.3); TOTAL BILIRUBIN 0.5 mg/dL (0.0-1.0)
[2022-04-30 07:09] LABS: BASOPHILS % (AUTO) 0.2 % (0.0-2.0); EOSINOPHILS # (AUTO) 0.1 K/uL (0-0.4); EOSINOPHILS % (AUTO) 1.6 % (0.0-4.0); HEMATOCRIT 29.5 % (36-52); HEMOGLOBIN 10.2 g/dL (12.0-18.0); LYMPHOCYTES # (AUTO) 0.8 K/uL (2.0-11.5); MEAN CORPUSCULAR HEMOGLOBIN 34 pg (27-31); MEAN CORPUSCULAR HGB CONC 35 g/dL (33-37); MEAN CORPUSCULAR VOLUME 98.4 fL (80-94); MONOCYTES # (AUTO) 0.5 K/uL (0.8-1.0); MONOCYTES % (AUTO) 6.8 % (1.7-9.3); NEUTROPHILS # (AUTO) 6.1 K/uL (1.8-7.7); NEUTROPHILS % (AUTO) 81.4 % (42.2-75.2); PLATELET COUNT (AUTO) 127 K/uL (140-450); RED CELL DISTRIBUTION WIDTH 14.5 % (11.6-13.7); WHITE BLOOD COUNT (AUTO) 7.5 K/uL (4.8-10.8)
[2022-04-30 07:10] LABS: FREE T4 (FREE THYROXINE) 1.04 ng/dL (0.76-1.46); THYROID STIMULATING HORMONE 2.81 uIU/mL (0.34-3.74)
--- NOTE | 2022-04-30 07:19 | NUR ---
ENDORSED PT TO DAY SHIFT RN FOR CONTINUITY OF CARE. PT IS STABLE.
[2022-04-30 07:24] LABS: POTASSIUM 2.4 mmol/L (3.5-5.1)
[2022-04-30] MEDS: DOCUSATE 100 MG/10 ML UDC GT SCH (08:01)
[2022-04-30] MEDS: POLYETHYLENE GLYCOL 17 GM/PKT GT SCH (08:01)
[2022-04-30] MEDS: DIVALPROEX SPRINKLES 125 MG CAPDR GT SCH (08:14)
[2022-04-30] MEDS: FINASTERIDE 5 MG TAB GT SCH (08:14)
[2022-04-30] MEDS: LORazepam 1 MG TAB GT SCH ×3 (08:14→16:00)
[2022-04-30] MEDS: MULTIVITAMIN/MINERALS 1 TAB GT SCH (08:14)
[2022-04-30] MEDS: CEFEPIME 1,000 MG in DEXTROSE 5% 50 ML IV SCH (08:14)
[2022-04-30] MEDS: BRIMONIDINE TARTRATE 0.2% OP 5 ML BTL LEFT EYE SCH (08:14)
[2022-04-30] MEDS: TIMOLOL OP 0.5% 5 ML BTL LEFT EYE SCH (08:15)
[2022-04-30] MEDS: ENOXAPARIN 40 MG/0.4 ML SYR SUBQ SCH (08:16)
[2022-04-30] MEDS ORDERED: KCL 20 MEQ/WATER INJ PREMIX 200 ML IV SCH (08:30)
--- NOTE | 2022-04-30 10:38 | NUR ---
Patient in no apparent distress. K 2.4. Informed MD Dr. Chaudhari. He said to put in K rider 40mEq once. Additional PO K was also put in as scheduled. Patient tolerating tube feeding well. Waiting for PT.
--- NOTE | 2022-04-30 11:14 | NUR ---
electronics maintenance technician here to do the ECHO.
[2022-04-30] MEDS: POTASSIUM CHLORIDE 20% 40 MEQ/15 ML UDC GT SCH ×2 (12:00→16:00)
--- NOTE | 2022-04-30 12:06 | NUR ---
MANAGER CONTRACT and RN changed, turned, and repositioned patient.
--- NOTE | 2022-04-30 12:26 | NUR ---
Per transportation technician, patient going in and out of monomorphic V tach and SR. HR 80-90s. Checked in on patient and patient resting comfortably. Addendum: 04/30/22 at 1228 by Agency Nurse MARU Lewis RN Let Dr. Chaudhari aware. Addendum: 04/30/22 at 1242 by Agency Nurse MARU Lewis RN Had Dr. Knott look at the EKG and Dr. Knott said it was SR w BBB since P wave is still there.
--- NOTE | 2022-04-30 13:31 | NUR ---
Supplemented patient with now scheduled K liquid through G tube.
[2022-04-30 13:50] VITALS: BP 139/85
--- NOTE | 2022-04-30 15:51 | NUR ---
CM called saying patient will be going back to [facility] Room # 44. Report called and given to phone number [phone]. ETA for pickup is [phone].
--- NOTE | 2022-04-30 16:04 | NUR ---
Patient's R foot 24g IV removed.
--- NOTE | 2022-04-30 16:04 | NUR ---
PT. WITH LOW MARIA A SCALE AT MODERATE TO HIGH RISK, CONTINUE TO FOLLOW PRESSURE INJURY PREVENTION INTERVENTIONS. -POSITIONING: TURN AND REPOSITION PATIENT Q 2H OR SOONER USE PILLOWS TO KEEP BONY PROMINENCES FROM DIRECT CONTACT WITH SURFACES USE REPOSITIONING WEDGES TO PROVIDE 30-DEGREE ANGLE FOR SIDE LYING POSITIONS OFFLOADING OR FOAM DRESSING TO ALL TUBING TO PREVENT MEDICAL DEVICES RELATED PRESSURE INJURY -RE-EVALUATING AND MANAGING INCONTINENCE MONITOR SKIN CONDITION DURING POSITION CHANGE DO NOT MASSAGE REDNESS, BONY PROMINENCES FREQUENT LUKASZ-CARE AND PROVIDE BARRIER CREAMS PRN IF SOILING MOISTURE CONTROL BY OFFER BED ROBINS/URINAL /ABSORBENT PAD TO WICK AND HOLD MOISTURE KEEP SKIN DRY AND PROTECT FROM FRICTION -MANAGE FRICTION/SHEAR/MOBILITY KEEP HOB AT THE LOWEST LEVEL OF ELEVATION NO MORE THAN 30 DEGREE UNLESS OTHERWISE CONTRAINDICATED USE LIFT SHEET OR TRANSFER DEVICE TO MOVE PATIENT AND PREVENT LATERAL SHEER. PROTECT HEELS, ELBOWS BONY PROMINENCES WITH SKIN BERRIES OR FOAM DRESSING IF EXPOSED TO FRICTION OFFLOAD BILATERAL HEELS BY PLACING PILLOWS UNDER CALVES AT ALL TIMES, UNLESS OTHERWISE CONTRAINDICATED -PRESSURE REDISTRIBUTION SURFACE THERAPY KRISTI ISOFLEX MATTRESS -NUTRITION: PLEASE FOLLOW RD RECOMMENDATIONS AND OFFER NUTRITION SUPPLEMENTS IF ORDERED.
--- NOTE | 2022-04-30 16:49 | NUR ---
Told Dr. Chaudhari to put in discharge orders.
[2022-04-30 16:55] VITALS: BP 131/76
[2022-04-30] MEDS ORDERED: MAGN400S60 GT (17:25)
[2022-04-30] MEDS ORDERED: METH1TAB GT (17:25)
[2022-04-30] MEDS ORDERED: TAMS0.4C96 GT (17:25)
[2022-04-30] MEDS ORDERED: OMEP-303 GT (17:25)
[2022-04-30] MEDS ORDERED: CEFE1PDS IJ (17:25)
[2022-04-30] MEDS ORDERED: DOCU-299 GT (17:25)
[2022-04-30] MEDS ORDERED: DIVA500E2 GT (17:25)
[2022-04-30] MEDS ORDERED: LEVO0.124 GT (17:25)
[2022-04-30] MEDS ORDERED: ACET-2619 GT (17:25)
[2022-04-30] MEDS ORDERED: MULT-2247 GT (17:25)
[2022-04-30] MEDS ORDERED: POLY17PD65 GT (17:25)
[2022-04-30] MEDS ORDERED: LORA-476 GT (17:25)
[2022-04-30] MEDS ORDERED: VANC750F IV (17:25)
[2022-04-30 17:29] VITALS: BP 131/76
[2022-04-30 17:31] VITALS: BP 131/76
--- NOTE | 2022-04-30 18:18 | NUR ---
Performed oral care with suction. Patient soiled himself and changed him too. Addendum: 04/30/22 at 1833 by Agency Nurse MARU Lewis RN Patient's caregiver came to visit patient.
--- NOTE | 2022-04-30 19:29 | NUR ---
gave report to [facility] transport , telebox removed by albin ferreira per armando villegas . d/c g tube feeding , per order - discharge w/ midline due to cont. of iv med in facility - midline intact and patent , skin intact .
--- NOTE | 2022-04-30 19:43 | NUR ---
disharged pt stable - awake . v/s 124/65 , hr 78 , t 98.8f , o2 sat 98 % rr 18
== END 2022-04-30 19:37 | DRG 871 ==
LOC: MED 20:42 → MMU 23:37 → MIC 04-26 00:05 → MTU 04-27 15:40
PROVIDERS: ADMIT Preventive Medicine Preventive Medicine/Occupational Environmental Medicine; ATTEND Preventive Medicine Preventive Medicine/Occupational Environmental Medicine
DX: A41.9 Sepsis, unspecified organism (principal); J69.0 Pneumonitis due to inhalation of food and vomit; J96.01 Acute respiratory failure with hypoxia; E44.0 Moderate protein-calorie malnutrition; E87.0 Hyperosmolality and hypernatremia; N39.0 Urinary tract infection, site not specified; E03.9 Hypothyroidism, unspecified; E88.09 Other disorders of plasma-protein metabolism, not elsewhere classified; I10 Essential (primary) hypertension; G40.909 Epilepsy, unspecified, not intractable, without status epilepticus; K21.9 Gastro-esophageal reflux disease without esophagitis; E87.6 Hypokalemia; R13.10 Dysphagia, unspecified; N40.0 Benign prostatic hyperplasia without lower urinary tract symptoms; E83.52 Hypercalcemia; R73.9 Hyperglycemia, unspecified; Z20.822 Contact with and (suspected) exposure to COVID-19; K59.00 Constipation, unspecified; F79 Unspecified intellectual disabilities; E83.42 Hypomagnesemia; E83.119 Hemochromatosis, unspecified; D69.6 Thrombocytopenia, unspecified; D64.9 Anemia, unspecified; Z86.16 Personal history of COVID-19; Z93.1 Gastrostomy status; Z68.24 Body mass index [BMI] 24.0-24.9, adult; Z22.322 Carrier or suspected carrier of Methicillin resistant Staphylococcus aureus
CPT/HCPCS: 36415; 71045; 80048; 80053; 80202; 81001; 83605; 83735; 83880; 84100; 84439; 84443; 84484; 85025; 85651; 86140; 87040; 87081; 87086; 92610; 93005; 94640; 96365; 97163-GP; 99291; J0692; J1650; J2405; J3370; J3475; J3480; J7030; J7060; J7613; J7644; Q0092